=== PATIENT | male | born 1955 | race Caucasian/White ===

== ENCOUNTER 2016-10-28 19:51 | Emergency (ER) | payer BC ==
[~2016-10-28] VITALS: Ht 177.8 cm; Wt 65.7 kg
[~2016-10-28 19:51] MED LIST: IPRA1AER2 INH; SIMV20TA5 PO
[2016-10-28 19:58] VITALS: TEMP 36.9; Ht 177.8 cm; Wt 65.7 kg
[2016-10-28] MEDS ORDERED: VORT1TAB PO (20:19)
[2016-10-28] MEDS ORDERED: CLON0.5T3 PO (20:19)
[2016-10-28] MEDS ORDERED: ATOR10TA88 PO (20:19)
[2016-10-28] MEDS ORDERED: ADVIN50/60 INH (20:19)
[2016-10-28] MEDS ORDERED: SODIUM CHLORIDE 0.9% 500ML 500 ML IV STA ×2 (20:27→21:03)
[2016-10-28] MEDS ORDERED: SODIUM CHLORIDE 0.9% 1000ML 1,000 ML IV STA (20:50)
--- NOTE | 2016-10-28 20:52 | DIAGNOSTIC IMAGING REPORT ---
CHEST ONE VIEW PORTABLE CLINICAL HISTORY: Syncope. COMPARISON STUDY: Chest radiograph June 16, 2010. FINDINGS: There is no pneumothorax or pleural effusion. Bibasilar opacities favor atelectasis. There is no evidence of pulmonary edema. Cardiac size is normal. Mediastinal contours are normal. IMPRESSION: 1. Bibasilar opacities suggestive of atelectasis. 2. No acute cardiopulmonary findings. Electronically signed by: Korey Rush M.D. 10/28/2016 8:51 PM Dictated Date/Time: 10/28/2016 8:48 PM
[2016-10-28 20:55] LABS: BASO % 0.1 %; BASO ABS # 0.01 K/uL (0-0.2); COMPLETE YES; EOS % 2.1 %; HEMATOCRIT 40.7 % (42-52); IG% 0.2 %; LYMPH % 24.7 %; LYMPH ABS # 2.28 K/uL (1.2-3.4); MEAN CELL VOLUME 95.1 fL (80-100); MEAN CORPUSCULAR HEMOGLOBIN 32.5 pg (25-34); MEAN CORPUSCULAR HGB CONC 34.2 g/dl (32-36); MEAN PLATELET VOLUME 9.6 fL (7.4-10.4); MONO % 8.3 %; NEUT % 64.6 %; PLATELET COUNT 178 K/uL (130-400); RED BLOOD COUNT 4.28 M/uL (4.7-6.1); WHITE BLOOD COUNT 9.23 K/uL (4.8-10.8)
[2016-10-28 21:09] LABS: CREATININE 0.93 mg/dl (0.60-1.40); MAGNESIUM 1.9 mg/dl (1.8-2.4); POTASSIUM 3.3 mmol/L (3.5-5.1)
--- NOTE | 2016-10-28 21:18 | EMERGENCY ROOM VISIT NOTE ---
History Report prepared by Chris: Bryant Almazan Under the Supervision of: Dr. Maynor Rodas M.D. First contact with patient: 20:34 Chief Complaint: SYNCOPE (NEAR SYNCOPE) Stated Complaint: SYNCOPE, HYPOTENSIVE Nursing Triage Summary: pt arrived als from home reported approx 1900 syncopel event, pt was standing remembers getting dizzy and then fallen to the ground pt awoke moments later and was diaphoretic pt denies hitting head or body parts "it was a graceful fall" reported pt was making a martini and had about 2 oz of vodka bp 72/40 History of Present Illness The patient is a 61 year old male who presents to the Emergency Room with complaints of a sudden syncopal episode that occurred around 1929. He states that he went to stand up at dinner to get water, but started to experience lightheadedness and dizziness after standing up. His states that she noticed he was swaying and "crumpled" down. She states that he did not hit his head and was unconscious for about 45 seconds. The patient states that he typically drinks around 2-3 water bottles a day but had none today. He admits that he had a third of a martini today and states he feels mildly intoxicated at the moment. The patient states that he had a syncopal episode once over 30 years ago. Per EMS, his blood pressure was [address] to the ED. He admits that his dizziness is resolving with administration of the 1400 ccs of saline prior to my evaluation. He admits to a history of hyperlipidemia, depression, and anxiety. The patient states he saw his urologist last week for a check up and denies any problems. The patient denies any recent illness, UTI, nausea, vomiting, diarrhea, any new exposures, palpitations, shortness of breath , chest pain, cough, fever, shaking, incontinence, biting tongue, heart attack history, and blood thinners. Source of History: patient Onset: 1929 Position: other (global) Timing: other (sudden) Modifying Factors (Relieving): other (fluids) Associated Symptoms: No fevers, No cough, No chest pain, No SOB, No nausea, No vomiting, No diarrhea, No urinary symptoms Review of Systems See HPI for pertinent positives & negatives. A total of 10 systems reviewed and were otherwise negative. Past Medical & Surgical Medical Problems: (1) Anxiety (2) Depression (3) Hyperlipidemia Surgical Problems: (1) H/O hernia repair Family History Patient reports no known family medical history. Social History Smoking Status: Former Smoker Marital Status: Housing Status: lives with significant other Current/Historical Medications Scheduled Atorvastatin (Lipitor), 10 MG PO DAILY Clonazepam (Klonopin), 0.5 MG PO NEEDED Fluticasone Prop/Salmeterol (Advair Diskus 500/50 60 Dose), 1 PUFF INH BID Vortioxetine HBr (Trintellix), 5 MG PO DAILY Scheduled PRN Ipratropium-Albuterol (Combivent Respimat), 1 PUFFS INH BID PRN for Shortness of Breath Allergies Coded Allergies: Cat Dander (Verified Allergy, Unknown, HAYFEVER, 01/14/14) Dog Dander (Verified Allergy, Unknown, HAYFEVER, 01/14/14) Physical Exam Vital Signs Date Time Temp Pulse Resp B/P (MAP) Pulse Ox O2 Delivery O2 Flow Rate FiO2 10/28/16 23:02 81 18 129/70 97 Room Air 10/28/16 20:46 72 20 96/67 95 10/28/16 20:41 76 15 96 10/28/16 20:36 71 19 96 10/28/16 20:31 69 21 90/65 95 10/28/16 20:26 69 20 96 10/28/16 20:21 70 18 96 10/28/16 20:16 71 24 93/66 96 10/28/16 20:11 68 19 97 10/28/16 20:08 99/72 10/28/16 20:06 68 17 10/28/16 20:02 67 10/28/16 19:58 36.9 77 18 92/61 97 Room Air 10/28/16 19:55 92/61 Physical Exam GENERAL: Patient is in no acute distress. HEENT: No acute trauma, normocephalic atraumatic, mucous membranes dry, no nasal congestion, no scleral icterus. NECK: No stridor, no adenopathy, no meningismus, trachea is midline. LUNGS: Crackles at left base, no wheezing, breath sounds are equal. HEART: Without murmurs gallops or rubs, regular rate and rhythm. ABDOMEN: Soft, nontender, bowel sounds positive, no hernias, no peritonitis. EXTREMITIES: No cyanosis or edema, full range of motion of all the joints without pain or difficulty, no signs for acute trauma. NEUROLOGIC: Oriented x 3, no acute motor or sensory deficits, no focal weakness. SKIN: No rash, no jaundice, no diaphoresis. Medical Decision & Procedures ER Provider Diagnostic Interpretation: X-ray results as stated below per interpretation by me and the radiologist: CHEST ONE VIEW PORTABLE CLINICAL HISTORY: Syncope. COMPARISON STUDY: Chest radiograph June 16, 2010. FINDINGS: There is no pneumothorax or pleural effusion. Bibasilar opacities favor atelectasis. There is no evidence of pulmonary edema. Cardiac size is normal. Mediastinal contours are normal. IMPRESSION: 1. Bibasilar opacities suggestive of atelectasis. 2. No acute cardiopulmonary findings. Electronically signed by: Korey Rush M.D. 10/28/2016 8:51 PM Dictated Date/Time: 10/28/2016 8:48 PM Laboratory Results 10/28/16 20:30 Red Blood Count 4.28, Mean Corpuscular Volume 95.1, Mean Corpuscular Hemoglobin 32.5, Mean Corpuscular Hemoglobin Concent 34.2, Mean Platelet Volume 9.6, Neutrophils (%) (Auto) 64.6, Lymphocytes (%) (Auto) 24.7, Monocytes (%) (Auto) 8.3, Eosinophils (%) (Auto) 2.1, Basophils (%) (Auto) 0.1, Neutrophils # (Auto) 5.96, Lymphocytes # (Auto) 2.28, Monocytes # (Auto) 0.77, Eosinophils # (Auto) 0.19, Basophils # (Auto) 0.01 10/28/16 20:30 Test 10/28/16 20:24 10/28/16 20:30 10/28/16 21:15 10/28/16 22:50 Bedside Glucose 88 mg/dl (70-99) White Blood Count 9.23 K/uL (4.8-10.8) Red Blood Count 4.28 M/uL (4.7-6.1) Hemoglobin 13.9 g/dL (14.0-18.0) Hematocrit 40.7 % (42-52) Mean Corpuscular Volume 95.1 fL (80-100) Mean Corpuscular Hemoglobin 32.5 pg (25-34) Mean Corpuscular Hemoglobin Concent 34.2 g/dl (32-36) Platelet Count 178 K/uL (130-400) Mean Platelet Volume 9.6 fL (7.4-10.4) Neutrophils (%) (Auto) 64.6 % Lymphocytes (%) (Auto) 24.7 % Monocytes (%) (Auto) 8.3 % Eosinophils (%) (Auto) 2.1 % Basophils (%) (Auto) 0.1 % Neutrophils # (Auto) 5.96 K/uL (1.4-6.5) Lymphocytes # (Auto) 2.28 K/uL (1.2-3.4) Monocytes # (Auto) 0.77 K/uL (0.11-0.59) Eosinophils # (Auto) 0.19 K/uL (0-0.5) Basophils # (Auto) 0.01 K/uL (0-0.2) RDW Standard Deviation 44.7 fL (36.4-46.3) RDW Coefficient of Variation 12.8 % (11.5-14.5) Immature Granulocyte % (Auto) 0.2 % Immature Granulocyte # (Auto) 0.02 K/uL (0.00-0.02) Anion Gap 8.0 mmol/L (3-11) Est Creatinine Clear Calc Drug Dose 75.6 ml/min Estimated GFR () 100.9 Estimated GFR (Non- 87.1 BUN/Creatinine Ratio 16.0 (10-20) Calcium Level 8.0 mg/dl (8.5-10.1) Magnesium Level 1.9 mg/dl (1.8-2.4) Total Bilirubin 0.4 mg/dl (0.2-1) Aspartate Amino Transf (AST/SGOT) 14 U/L (15-37) Alanine Aminotransferase (ALT/SGPT) 25 U/L (12-78) Alkaline Phosphatase 36 U/L (45-117) Total Creatine Kinase 87 U/L (39-308) Creatine Kinase MB 1.0 ng/ml (0.5-3.6) Creatine Kinase MB Ratio 1.1 (0-3.0) Total Protein 6.2 gm/dl (6.4-8.2) Albumin 3.1 gm/dl (3.4-5.0) Globulin 3.1 gm/dl (2.5-4.0) Albumin/Globulin Ratio 1.0 (0.9-2) Thyroid Stimulating Hormone (TSH) 1.450 uIu/ml (0.300-4.500) Ethyl Alcohol mg/dL < 3.0 mg/dl (0-3) Bedside Troponin I < 0.030 ng/ml (0-0.045) Laboratory results reviewed by me. Medications Administered Medications (Trade) Dose Ordered Sig/Serge Route Start Time Stop Time Status Last Admin Dose Admin Sodium Chloride 500 ml @ 999 mls/hr Q31M STAT IV 10/28/16 20:27 10/28/16 20:57 DC 10/28/16 20:27 999 MLS/HR Sodium Chloride 1,000 ml @ 250 mls/hr Q4H STAT IV 10/28/16 20:50 10/29/16 00:49 10/28/16 20:50 250 MLS/HR Sodium Chloride 500 ml @ 999 mls/hr Q31M STAT IV 10/28/16 21:03 10/28/16 21:33 DC 10/28/16 21:03 999 MLS/HR ECG Indication: syncope Rate (beats per minute): 67 Rhythm: normal sinus Findings: no acute ischemic change, no ectopy ED Course 2026: Sodium Chloride 500 ml @ 999 mls/hr IV 2049: Sodium Chloride 1000 ml @ 250 mls/hr IV. 2055: The patient was evaluated in room B04B. A complete history and physical exam was performed. 2102: Sodium Chloride 500 ml @ 999 mls/hr IV. 2307: Reevaluated the patient. Discussed results and discharge instructions: He verbalized understanding and agreement. The patient is ready for discharge. Medical Decision The patient is a 61 year old male who presents to the ED with complaints of a sudden syncopal episode that occurred around 1930. Differential diagnoses considered include dehydration, alcohol use, electrolyte imbalance, anemia, dysrhythmia, DC, infection. There is no leukocytosis or concerning anemia. No significant electrolyte abnormality, kidney failure or hepatitis. The patient appears to be in a euthyroid state. Chest x-ray shows some basilar atelectasis, no CHF or pneumonia. EKG shows a normal sinus rhythm, no acute ischemia. Cardiac enzyme testing 2 is not consistent with acute cardiac injury. Alcohol level is undetectable. The patient had passed out when standing. He had not had anything to drink really throughout the entire day. It was warm today. His initial blood pressure was low in the 70s. Patient received around 2 L of IV saline, his blood pressure is now around 120 systolic. He is asymptomatic, he feels well. He has been able to drink 3 glasses of water. The patient has been in baseline health, he has had no complaints. He feels he was dehydrated today, I agree. He is doing well at the present and I do think can be discharged home. If his symptoms return, if he has fever or vomiting, if he has pain, he will return. Medication Reconcilliation Current Medication List: was personally reviewed by me Blood Pressure Screening Patient's blood pressure: Elevated blood pressure Blood pressure disposition: Elevated BP felt to be situational Impression Primary Impression: Syncope Additional Impression: Dehydration Scribe Attestation The scribe's documentation has been prepared under my direction and personally reviewed by me in its entirety. I confirm that the note above accurately reflects all work, treatment, procedures, and medical decision making performed by me. Departure Information Dispostion Home / Self-Care Referrals Reinier Flores M.D. (PCP) Forms HOME CARE DOCUMENTATION FORM, IMPORTANT VISIT INFORMATION Patient Instructions My [facility] [employer] Additional Instructions more fluids rest return for return of symptoms return for fever or vomiting lab testing today was all ok ECG today was ok Problem Qualifiers
[2016-10-28 21:20] LABS: CKMB/CK RATIO 1.1 (0-3.0); THYROID STIMULATING HORMONE 1.45 uIu/ml (0.300-4.500)
[2016-10-28 23:02] VITALS: BP 129/70; PULSE 81; O2SAT 97
== END 2016-10-28 23:21 | disposition home or self-care (01) ==
LOC: EDBD 19:51 → C.EDB 19:58
DX: R55 Syncope and collapse (principal); E86.0 Dehydration; R42 Dizziness and giddiness; E78.5 Hyperlipidemia, unspecified; F32.9 Major depressive disorder, single episode, unspecified; F41.9 Anxiety disorder, unspecified; Z79.899 Other long term (current) drug therapy

== ENCOUNTER 2019-05-07 11:03 | Observation (INO) ==
--- NOTE | 2019-04-22 11:22 | PAT Medication Instructions ---
Medication Instructions Date of Service April 22, 2019 Home Medications clonazepam 0.5 mg tablet 0.5 mg PO QPM fluticasone 500 mcg-salmeterol 50 mcg/dose blistr powdr for inhalation 1 puffs INH BID atorvastatin 10 mg tablet 10 mg PO QAM albuterol sulfate 2 puff INHALATION 6XD PRN Take morning of surgery With a small sip of water, OTHERWISE NOTHING TO EAT OR DRINK AFTER MIDNIGHT: fluticasone 500 mcg-salmeterol 50 mcg/dose blistr powdr for inhalation 1 puffs INH BID atorvastatin 10 mg tablet 10 mg PO QAM albuterol sulfate 2 puff INHALATION 6XD PRN (if needed, and bring with you to the hospital) Take evening before surgery clonazepam 0.5 mg tablet 0.5 mg PO QPM fluticasone 500 mcg-salmeterol 50 mcg/dose blistr powdr for inhalation 1 puffs INH BID albuterol sulfate 2 puff INHALATION 6XD PRN (if needed) Other Notes If you have any questions please call us at [phone] or [phone] or [phone] or [phone]
--- NOTE | 2019-04-22 13:38 | Anesthesiology Consultation ---
Date of Service April 22, 2019 Assessment & Plan (1) Encounter for pre-operative examination: Chart Review Chart Review: Pending: Refer to Additional Notes / Consult section (PCP response re: abnormal CXR ) and Patient seen in Pre Admission Testing Pre op CXR showing questionable nodular opacity- note written to PCP inquiring if further work up needed prior to surgery. Will await response. Teaching & Discussion Pre-Anesthesia Teaching/Discussion Notes: Instructed NPO after midnight before surgery,except medications with 15 cc of water. Medication instructions provided according to the PAT guidelines. History Surgery Operation Date: 05/07/19 12:00 Proposed Procedures p Transurethral Resection Bladder Tumor, Mitomycin C, Optical Internal Urethrotomy - Deshawn Cho MD Height/Weight Height: 5 ft 10 in Weight: 64.8 kg Allergies Allergy/AdvReac Type Severity Reaction Status Date / Time No Known Drug Allergies Allergy Verified 04/20/19 15:38 Medications Home Medications Medication Instructions Recorded Confirmed Last Taken clonazepam 0.5 mg tablet 0.5 mg PO QPM 04/08/19 04/20/19 Unknown fluticasone 500 mcg-salmeterol 50 1 puffs INH BID 04/08/19 04/20/19 Unknown mcg/dose blistr powdr for inhalation atorvastatin 10 mg tablet 10 mg PO QAM 04/15/19 04/20/19 Unknown albuterol sulfate 2 puff INHALATION 6XD PRN 04/20/19 04/20/19 Unknown Past Medical History Medical History Anxiety Asthma ALLERGY INDUCED ASTHMA- well controlled with Advair- occ albuterol use Bladder mass Depression Environmental allergies CAT AND DOG DANDER Hyperlipidemia Urethral stricture due to and not concurrent with procedure Exercise / Class Metabolic Activity II 4-5 Yardwork/Stairs/Walk up hill (one flight stairs - no chest pain or SOB; yoga three times weekly ) Past Family History Family History Mother Diabetes Father Heart disease Kidney stones Past Surgical History Surgical History History of colonoscopy History of hernia surgery History of sinus surgery History of surgical removal of ganglion cyst Hx of wisdom tooth extraction Past Anesthesia History No Hx of Anesthesia Complications and No Family Hx of Anesthesia Complications History of PONV No Hx of PONV and No Hx of Motion Sickness Social History Smoking Status: Former smoker (Smoked x 20 years- approx 1/2 pack per day ) Do You Dip or Chew Tobacco: No Smoking End Date: 20 YR AGO Hx Alcohol Use: Yes Alcohol type: beer, wine and hard liquor alcohol intake frequency: 3 or more drinks per day (1 drink per day ) Hx Substance Use: No substance use type: does not use Review of Systems Patient denies chest pain, shortness of breath, dyspnea on exertion, reflux, cough, wheezing, palpitations. No hx of seizures, stroke, AL, apnea/snoring. No hx of blood clots or blood t ransfusions No recent steroid use Physical Exam Vital Signs VITALS BP 144/81 P 83 TEMP 97.5 SP02 95% RESP 20 Constitutional no acute distress ENMT Mouth: no TMJ clicking, no chipped teeth and no loose teeth Thyromental Distance: > or= 3.5 Finger Breadths (4) Mallampati Class: I (smaller airway ) No missing teeth Crowns to molars Neck neck extension not limited Respiratory normal respiratory effort; no respiratory distress Auscultation: lungs clear to auscultation bilaterally and + diminished lung sounds (throughout ); no wheezes Cardiovascular Rate/Rhythm: regular rate and regular rhythm Heart Sounds: no murmur Vessels: no carotid bruit Musculoskeletal Spine: normal cervical ROM and no pain with cervical ROM Neurologic moves all extremities Psychiatric Orientation: alert Testing Laboratory Results 04/22/19 13:56 04/22/19 13:56 Urine Color Yellow 04/22/19 13:56 Urine Appearance Clear (Clear) 04/22/19 13:56 Urine pH 6.0 (4.5-7.5) 04/22/19 13:56 Ur Specific [place] 1.013 (1.000-1.030) 04/22/19 13:56 Urine Protein Trace (Negative) H 04/22/19 13:56 Urine Glucose (UA) Negative (Negative) 04/22/19 13:56 Urine Ketones 1+ (Negative) H 04/22/19 13:56 Urine Nitrite Negative (Negative) 04/22/19 13:56 Ur Leukocyte Esterase 1+ (Negative) H 04/22/19 13:56 Urine WBC (Auto) 10-30 /hpf (0-5) H 04/22/19 13:56 Urine RBC (Auto) 5-10 /hpf (0-4) H 04/22/19 13:56 U Hyaline Cast (Auto) 1-5 /lpf (0-5) 04/22/19 13:56 U Epithel Cells (Auto) 20-30 /lpf (0-5) H 04/22/19 13:56 Urine Bacteria (Auto) Negative (Negative) 04/22/19 13:56 Blood Type A Positive 04/22/19 13:56 Antibody Screen NEGATIVE 04/22/19 13:56 04/22/19 13:56 Urine Culture - Preliminary Urine,Clean Catch No growth - Less than 1,000 colonies/mL, Final report to follow. Electrocardiogram Date: 04/22/19 Findings: + NSR @ [address]. Compared to 10/28/2016- no significant change found Chest X-Ray Date: 04/22/19 Mild blunting of the posterior costophrenic angles may be secondary to trace effusions versus atelectasis. No pneumothorax, overt pulmonary lobar airspace consolidation. 2.4 cm nodular opacity projecting over the lateral right lung base appears to be outside of the lung.
[2019-04-22 14:40] LABS: Basophils # (auto) 0.02 K/uL (0-0.2); Basophils % (auto) 0.2 %; Eosinophils # (auto) 0.07 K/uL (0-0.5); Eosinophils % (auto) 0.7 %; Hematocrit (blood only) 45.4 % (42-52); Hemoglobin 15.6 g/dL (14.0-18.0); Immature Granulocytes # (auto) 0.02 K/uL (0.00-0.02); Immature Granulocytes % (auto) 0.2 %; Lymphocytes # (auto) 2.32 K/uL (1.2-3.4); Lymphocytes % (auto) 23.2 %; Mean Corpuscular Hemoglobin 32.6 pg (25-34); Mean Corpuscular Hgb Conc 34.4 g/dL (32-36); Mean Corpuscular Volume 94.8 fL (80-100); Mean Platelet Volume 9.9 fL (7.4-10.4); Monocytes # (auto) 1.05 K/uL (0.11-0.59); Monocytes % (auto) 10.5 %; Neutrophils % (auto) 65.2 %; Platelet Count 213 K/uL (130-400); RDW Coefficient of Variation 13.3 % (11.5-14.5); RDW Standard Deviation 46.1 fL (36.4-46.3); Red Blood Count 4.79 M/uL (4.7-6.1); White Blood Count 9.98 K/uL (4.8-10.8)
[2019-04-22 14:49] LABS: Calcium 9.1 mg/dl (8.5-10.1); Creatinine Clr Calc Pharmacy 71.1 ml/min; Est GFR (Non-African American) 83.7; Potassium 3.8 mmol/L (3.5-5.1)
--- NOTE | 2019-04-22 14:51 | XRay Report ---
XR chest Pre-admission PA/Lat HISTORY: 63 years-old Male pat preoperative exam. No acute chest complaints COMPARISON: CT abdomen pelvis 04/10/2019, chest radiograph 10/28/2016 TECHNIQUE: PA and lateral views of the chest FINDINGS: Cardiomediastinal and hilar silhouettes are within normal limits. Blunting of the posterior costophre juan angles. No pneumothorax, overt pulmonary lobar airspace consolidation. 2.4 cm nodular opacity pro jecting over the lateral right lung base appears to be outside of the lung. Right-sided cervical rib. Degenerative changes of the shoulders and spine. IMPRESSION: Mild blunting of the posterior costophrenic angles may be secondary to trace effusions ve rsus atelectasis. ACT 112: Negative or not required by law. The above report was generated using voice recognition software. It may contain grammatical, syntax o r spelling errors. Electronically signed by: Tigre Neri M.D. 04/22/2019 2:50 PM
--- NOTE | 2019-04-22 14:57 | Electrocardiogram Report ---
Test Reason : Blood Pressure : / mmHG Vent. Rate : 080 BPM Atrial Rate : 080 BPM P-R Int : 118 ms QRS Dur : 086 ms QT Int : 352 ms P-R-T Axes : 071 087 020 degrees QTc Int : 405 ms Normal sinus rhythm Right atrial enlargement Borderline ECG When compared with ECG of 28-OCT-2016 20:06, No significant change was found Confirmed by Eric Whyte ([id number]) on 04/22/2019 2:57:00 PM Referred By: Deshawn Cho Confirmed By:Eric Whyte
[2019-04-22 15:06] LABS: Appearance Urine Clear (Clear); Bacteria Urine Automated Negative (Negative); Bilirubin Urine Negative (Negative); Blood Urine Trace (Negative); Color Urine Yellow; Epithelial Cell Urine Auto 20-30 /lpf (0-5); Glucose Urine UA Negative (Negative); Ketones Urine 1+ (Negative); Leukocyte Esterase Urine 1+ (Negative); Nitrite Urine Negative (Negative); Protein Urine Trace (Negative); Specific Gravity Urine 1.013 (1.000-1.030); Urobilinogen Urine Negative (Negative)
[~2019-05-07 11:03] MED LIST changes: +CIPROFLOXACIN 400 MG/200 ML BAG IV SCH; -IPRA1AER2 INH; +LR 15ML/HR IV SCH; +OR USE ONLY INSTIL SCH; -SIMV20TA5 PO
--- NOTE | 2019-05-07 12:17 | History & Physical Bridge Note ---
Date of Service May 07, 2019 History & Physical Bridge Note I have examined the patient, reviewed the History & Physical and in the interval since the performance of the History & Physical I have noted the following changes of clinical significance: no changes noted
[2019-05-07] MEDS ORDERED: ePHEDrine sulfate 50 MG/ML AMP IV PRN (12:37)
[2019-05-07] MEDS ORDERED: HYDROmorphone INJ 2 MG/ML SYR/VIAL IV PRN (12:37)
[2019-05-07] MEDS ORDERED: ATROPINE SULFATE 0.1 MG/ML 10ML SYR IV PRN (12:37)
[2019-05-07] MEDS ORDERED: ONDANSETRON INJ 2 MG/ML 2 ML VIAL IV PRN ×2 (12:37→16:43)
[2019-05-07] MEDS ORDERED: fentaNYL citrate 100 MCG/2 ML VIAL ONE ×3 (12:44→14:46)
[2019-05-07] MEDS ORDERED: PROPOFOL IV EMULSION 10 MG/ML 20 ML VIAL IV ONE (12:44)
[2019-05-07] MEDS ORDERED: LIDOCAINE HCL 2% 2 ML VIAL/AMP(20MG/ML) INFIL ONE (12:44)
[2019-05-07] MEDS ORDERED: ONDANSETRON INJ 2 MG/ML 2 ML VIAL ONE ×2 (12:44→17:23)
[2019-05-07] MEDS ORDERED: MIDAZOLAM HCL 1 MG/ML 2ML VIAL ONE (12:44)
[2019-05-07] MEDS ORDERED: DEXAMETHASONE SOD INJ 4 MG/ML VIAL ONE (12:44)
[2019-05-07] MEDS ORDERED: IOTHALAMATE MEGLUMINE II 17.2% 250 ML VIAL ONE (13:56)
[2019-05-07] MEDS ORDERED: BELLADONNA/OPIUM SUPP 60 MG SUPP PR ONE (15:01)
[2019-05-07] MEDS ORDERED: BELLADONNA/OPIUM SUPP 60 MG SUPP PR PRN ×3 (15:01→16:43)
--- NOTE | 2019-05-07 15:20 | Operative Report ---
PG Post Operative Report Pre & Post Diagnosis Operation Date: 05/07/19 12:45 Pre-Op Diagnosis: Bladder Mass, urethral stricture Post-Op Diagnosis: Large right-sided bladder mass (greater than 8 cm in size), sessile base with apparent muscle invasion, urethral stricture. Surgeon: Dr. Deshawn Cho. Anesthesia: General anesthesia with laryngeal mask. Cruller Maker Machine: None. Drains left in place: 6 Samoan multilength stent on the right-hand side, 22 Samoan three-way Morales catheter with 15 cc of sterile water in the balloon to CBI. Specimen sent to pathology: Urine for cytology, right sided bladder/bladder neck tumor, right bladder tumor deep, posterior bladder tumor. Complications: None. Findings: Large, sessile bladder mass on the right-hand side with apparent muscle invasion, satellite lesions in the posterior bladder wall, right ureteral orifice stented due to proximity of tumor and fulguration, good stent position after completion of case. Open urethral stricture after incision. I identified the patient and participated in the time-out.: Yes Procedure Operation Date: 05/07/19 12:45 Actual Procedures p Cystoscopy, Transurethral Resection Bladder Tumor, Large; Right Retrograde Pyelography; Optical Internal Urethrotomy; Right Ureteral Stent Placement(Right) - Deshawn Cho MD Brief history: Patient is a pleasant 63-year-old male previously known to our service for history of an elevated PSA and voiding symptoms, discharged from our practice to reestablish care due to gross hematuria with a positive cytology. CT scan of the abdomen and pelvis was performed office cystoscopy was unsuccessful due to an obstructing urethral stricture disease refractory to dilation. Patient is here today for management of his urethral stricture and apparent bladder mass. Please see H&P for further details. Intravenous ciprofloxacin is provided for antibiotic coverage and SCDs used for DVT prophylaxis. Informed consent reviewed preoperatively today. Procedure: Patient was properly identified and brought into the operative suite after identification of appropriate consent in the chart. General anesthesia with laryngeal mask was initiated and patient was prepped and draped in the standard fashion for this procedure. Full timeout procedure was followed. 22 Samoan rigid cystoscope was passed into the urethra and in the bulbar urethra a circumferential, less than 8 Samoan circumferential stricture was appreciated. Using a half-wilson blade with a urethrotome this was incised at the 12 o'clock position. Stricture was noted to be relatively generous in terms of its length, extending to the prostatic urethra. After this was complete the bladder was accessed and surveyed. This demonstrated a large, sessile bladder mass involving essentially the entirety of the right bladder wall. Posterior satellite papillary lesions were appreciated. Although the lesion was papillary at its periphery the center of the lesion had a hardened, nodular appearance, worrisome for more aggressive disease. Left bladder wall was noted to be uninvolved. Attempts at finding the right ureteral orifice were limited due to persistent bleeding from the mass. Therefore transurethral resection was first undertaken to improve on bleeding. Despite frequent checks for the right ureteral orifice essentially the entire tumor required resection before the ureteral orifice was able to be visualized. Left-sided ureteral orifice was noted to be uninvolved. Over the course of resection it was felt that the detrusor muscle was being entered with the plane of resection extending deeper in the surrounding bladder wall. This was highly suspicious for muscle invasive disease. Tumor was sent in 2 different specimen containers depending on the depth of resection. Bipolar button was used to achieve hemostasis with improved visualization. No lacey bladder perforations were appreciated. After the bladder tumor was resected in its entirety the right-sided ureteral orifice was then able to be identified and noted to be close but clear of the edge of the tumor. However, the surrounding mucosa was felt to be abnormal and fulguration was planned. A multilength stent was therefore placed on the right-hand side with a double coil within the bladder and redundant stent at the level of the right kidney. Bipolar button was then used to fulgurate smaller lesions and abnormal mucosa in the vicinity of the ureteral orifice. Small, satellite posterior bladder lesions were resected in a bipolar loop and sent separately. After this was complete no evidence of any gross tumor persisting was noted. Seen the degree of resection of the placement of right ureteral stent plan for instillation of mitomycin-C was aborted. Bladder was partially distended and resectoscope was removed. 22 Samoan three-way Morales catheter with 15 cc of sterile water in the balloon was placed in the bladder and continuous bladder irrigation was initiated. Seen the size of the tumor and intraoperative oozing from both the urethra and the right bladder wall decision was made to admit the patient for CBI and observation overnight. Belladonna and opium suppository was provided for additional postoperative analgesia. Follow-up CARE: Patient will be admitted to the floor for continuous bladder irrigation. Depending on results we will potentially discharge home tomorrow with Morales catheter in place. Outpatient appointments are in place. Surgeon Deshawn Cho MD Cruller Maker Machine None Estimated Blood Loss 40 Findings Consistent with Post-Op Diagnosis Specimens See above Description of Procedure See above I attest to the content of the Intraoperative Record and any orders documented therein. Any exceptions are noted below.
[2019-05-07] MEDS: fentaNYL citrate 100 MCG/2 ML VIAL IV PRN ×4 (15:38→15:56)
[2019-05-07] MEDS ORDERED: OXYCODONE HCL IR 5 MG TAB (IMMEDIATE RELEASE) PO PRN (16:43)
[2019-05-07] MEDS ORDERED: OXYBUTYNIN CHLORIDE 5 MG TAB PO PRN (16:43)
[2019-05-07] MEDS ORDERED: ALBUTEROL HFA 8 GM INHALER INH PRN (16:43)
[2019-05-07] MEDS ORDERED: MoRPHine SULFATE 2 MG/ML CARP IV PRN (16:43)
[2019-05-07] MEDS ORDERED: ACETAMINOPHEN 1,000 MG/100 ML VIAL IV PRN (16:43)
--- NOTE | 2019-05-07 16:57 | Anesthesiology Progress Note ---
Date of Service May 07, 2019 Anesthesia Post Procedure Vital Signs Vital Signs: Temp Pulse Pulse Resp BP Pulse Ox 05/07/19 16:20 36.8 C 88 16 112/82 96 05/07/19 16:10 36.8 C 86 16 130/85 96 05/07/19 16:00 36.8 C 89 21 131/92 94 05/07/19 15:50 94 H 21 134/92 94 05/07/19 15:40 87 24 134/94 100 05/07/19 15:30 94 H 16 146/96 H 97 05/07/19 15:20 37.2 C 108 H 16 148/104 H 97 05/07/19 11:32 36.6 C 79 18 128/72 96 Pain Intensity Other: Pain Intensity: 1 Penis: Pain Intensity: 4 Transfer of Care Handoff Completed per policy Notes Mental Status: alert / awake / arousable Patient Amnestic to Procedure: Yes Nausea / Vomiting: adequately controlled Pain: adequately controlled Airway Patency, RR, SpO2: stable & adequate BP & HR: stable & adequate Hydration State: stable & adequate Anesthetic Complications: no major complications apparent
--- NOTE | 2019-05-07 17:15 | Progress Note ---
Date of Service May 07, 2019 Subjective Patient seen in PM rounds. Intraop findings reviewed, d/w previously. Sedated, resting in bed, NAD C/o bladder pressure with stevens. S1 S2 Good respiratory excursion. Soft, ND, NT A/P 63 yo male POD#0 s/p large TURBT, R stent. Findings reviewed. CBI OVN. Await pathology. Possible DC home with stevens tomorrow. OOBTC tonight, regular diet. Results & Data ([facility]) Vital Signs (Past 12 Hours) Vital Signs Temp Pulse Pulse Resp BP Pulse Ox 05/07/19 16:20 36.8 C 88 16 112/82 96 05/07/19 16:10 36.8 C 86 16 130/85 96 05/07/19 16:00 36.8 C 89 21 131/92 94 05/07/19 15:50 94 H 21 134/92 94 05/07/19 15:40 87 24 134/94 100 05/07/19 15:30 94 H 16 146/96 H 97 05/07/19 15:20 37.2 C 108 H 16 148/104 H 97 05/07/19 11:32 36.6 C 79 18 128/72 96 PG Care Time/CCT Total # of Minutes Spent Total Time Spent with Patient: Total time spent is greater than 50% in coordination of care (as documented) at patient's floor/unit and/or counseling patient: Coding Level of Care Code None
[2019-05-07] MEDS: HYDROmorphone INJ 1 MG/ML SYRINGE IV PRN ×2 (17:29→23:23)
--- NOTE | 2019-05-07 18:22 | Fluoroscopy Report ---
INTRAOPERATIVE RADIOGRAPH CLINICAL HISTORY: Cystogram with right ureteral stent placement. Fluoroscopy time: 52 seconds. FINDINGS: A single spot fluoroscopic view of the right upper quadrant from a ureteral stent placement procedure is correlated with abdominal CT dated 04/10/2019. The proximal end of a right ureteral sten t projects over the right renal pelvis. No calcifications are suggested along the course of the stent . IMPRESSION: Intraoperative image from a right ureteral stent placement procedure as above. Electronically signed by: Maynor Barbour M.D. 05/07/2019 6:20 PM
[2019-05-07] MEDS: LACTATED RINGER'S 1,000 ML IV SCH ×2 (20:05→20:08)
[2019-05-07] MEDS ORDERED: Nursing to Pharmacy Communication ONE (20:06)
[2019-05-07] MEDS: OXYCODONE HCL IR 5 MG TAB (IMMEDIATE RELEASE) PO PRN (20:09)
[2019-05-07] MEDS: CIPROFLOXACIN 500 MG TAB PO SCH (20:18)
[2019-05-07] MEDS: FAMOTIDINE 10 MG TABLET PO SCH (20:18)
[2019-05-07] MEDS: DOCUSATE SODIUM 100 MG CAP PO SCH (20:19)
[2019-05-07] MEDS ORDERED: clonazePAM 1 MG TAB PO SCH (21:00)
[2019-05-07] MEDS ORDERED: clonazePAM 0.5 MG TAB PO SCH (21:00)
[2019-05-07] MEDS ORDERED: LORazepam 1 MG TAB PO SCH (21:00)
[2019-05-08] MEDS: OXYCODONE HCL IR 5 MG TAB (IMMEDIATE RELEASE) PO PRN ×2 (04:01→09:06)
[2019-05-08] MEDS: LACTATED RINGER'S 1,000 ML IV SCH (05:23)
--- NOTE | 2019-05-08 07:19 | Urology Progress Note ---
Date of Service May 08, 2019 Assessment & Plan (1) Bladder mass: A/P 63 yo male POD#1 s/p TURBT, OIU. Overnight CBI, urine looks good this AM - CBI clamped personally, reviewed with nursing. Ambulation encouraged, will observe urine for hematuria this AM. If urine remains acceptable, DC home with stevens and outpatient TOV this AM. Will need cysto, stent removal at postop visit. Patient vocalizes understanding of the treatment plan. (2) Urethral stricture due to and not concurrent with procedure: Subjective 63 yo male POD#1 s/p TURBT large tumor, R RPG and stent. He notes OOB last night, c/o stevens discomfort. Tolerated regular dinner without issue, no other c/o. Urine pink tinged on slow CBI. Intraop findings reviewed again - await path and PET scan lungs. Review of Systems 2 Constitutional: no fever and no chills Eyes: no diplopia Ear, Nose, Mouth, Throat: no ear trauma Respiratory: no hemoptysis Cardiovascular: no chest pain Gastrointestinal: no nausea and no vomiting Genitourinary: + as per Subjective / HPI Integumentary: no acne and no boil Neurologic: no paralysis Psychiatric: no hopelessness Allergy / Immunological: no tongue swelling Physical Exam Constitutional: well developed and well nourished; no acute distress Eyes: eyes not dysmorphic ENMT: Ears: no external ear abnormality Neck: trachea midline; no anterior neck swelling Respiratory: no respiratory distress and does not use accessory muscles Cardiovascular: Vessels: radial pulses present Gastrointestinal (Abdomen): Inspection/Auscultation: abdomen not distended Percussion/Palpation: abdomen soft; abdomen nontender Musculoskeletal: Head/Neck/Chest: normocephalic and neck supple Skin: normal turgor Neurologic: awake; not obtunded Psychiatric: Orientation: oriented x 3 Lymphatic: no lymphadenopathy Results & Data Vital Signs (Past 12 Hours) Vital Signs Temp Pulse Resp BP Pulse Ox 05/08/19 03:52 36.6 C 72 20 114/72 94 05/07/19 23:27 37.3 C 71 20 125/72 92 PG Care Time/CCT Total # of Minutes Spent Total Time Spent with Patient: Total time spent is greater than 50% in coordination of care (as documented) at patient's floor/unit and/or counseling patient: Coding Level of Care Code 81977 Subseq Hosp Care Lvl 2 Diagnoses Bladder mass N32.89 Urethral stricture due to and not concurrent with procedure
[2019-05-08 07:21] LABS: Basophils # (auto) 0.01 K/uL (0-0.2); Basophils % (auto) 0.1 %; Hematocrit (blood only) 39.8 % (42-52); Hemoglobin 13.4 g/dL (14.0-18.0); Immature Granulocytes # (auto) 0.04 K/uL (0.00-0.02); Immature Granulocytes % (auto) 0.3 %; Lymphocytes # (auto) 1.98 K/uL (1.2-3.4); Lymphocytes % (auto) 12.5 %; Mean Corpuscular Hemoglobin 32.4 pg (25-34); Mean Corpuscular Hgb Conc 33.7 g/dL (32-36); Mean Corpuscular Volume 96.4 fL (80-100); Mean Platelet Volume 9.5 fL (7.4-10.4); Monocytes # (auto) 1.58 K/uL (0.11-0.59); Monocytes % (auto) 9.9 %; Neutrophils # (auto) 12.29 K/uL (1.4-6.5); Neutrophils % (auto) 77.2 %; Platelet Count 189 K/uL (130-400); RDW Coefficient of Variation 13.4 % (11.5-14.5); RDW Standard Deviation 46.8 fL (36.4-46.3); Red Blood Count 4.13 M/uL (4.7-6.1)
[2019-05-08 07:54] LABS: BUN Creatinine Ratio 14.3 (10-20); Calcium 8.3 mg/dl (8.5-10.1); Est GFR (Non-African American) 76.8; Potassium 4.1 mmol/L (3.5-5.1)
--- NOTE | 2019-05-08 07:55 | Anesthesiology Progress Note ---
Date of Service May 08, 2019 Anesthesia Post Procedure Vital Signs Vital Signs: Temp Pulse Pulse Resp BP Pulse Ox 05/08/19 07:37 37 C 74 16 109/67 93 05/08/19 03:52 36.6 C 72 20 114/72 94 05/07/19 23:27 37.3 C 71 20 125/72 92 05/07/19 18:45 63 120/73 93 05/07/19 17:45 36.5 C 63 18 106/70 93 05/07/19 17:15 37.3 C 66 16 101/64 95 05/07/19 16:45 37.3 C 79 16 131/81 95 05/07/19 16:20 36.8 C 88 16 112/82 96 05/07/19 16:10 36.8 C 86 16 130/85 96 05/07/19 16:00 36.8 C 89 21 131/92 94 05/07/19 15:50 94 H 21 134/92 94 05/07/19 15:40 87 24 134/94 100 05/07/19 15:30 94 H 16 146/96 H 97 05/07/19 15:20 37.2 C 108 H 16 148/104 H 97 05/07/19 11:32 36.6 C 79 18 128/72 96 Pain Intensity Other: Pain Intensity: 1 Penis: Pain Intensity: 4 Notes Mental Status: alert / awake / arousable and participated in evaluation Patient Amnestic to Procedure: Yes Nausea / Vomiting: adequately controlled Pain: adequately controlled Airway Patency, RR, SpO2: stable & adequate BP & HR: stable & adequate Hydration State: stable & adequate Anesthetic Complications: no major complications apparent and Pt Satisfied with anesthetic care
[2019-05-08] MEDS ORDERED: FLUTICASONE/VILANTEROL 200/25MCG 14 PUFFS/INHALER INH SCH (09:00)
[2019-05-08] MEDS ORDERED: ATORVASTATIN 10 MG TAB PO SCH (09:00)
[2019-05-08] MEDS: DOCUSATE SODIUM 100 MG CAP PO SCH (09:04)
[2019-05-08] MEDS: CIPROFLOXACIN 500 MG TAB PO SCH (09:05)
[2019-05-08] MEDS: FAMOTIDINE 10 MG TABLET PO SCH (09:05)
--- NOTE | 2019-05-15 14:58 | Discharge Summary ---
Date of Service May 15, 2019 Admission HPI Per Admitting Provider Patient with bladder tumor for TURBT admitted postop for CBI due to tumor volume resected. Admission Exam (Per Admitting) Constitutional well developed and well nourished; no acute distress Eyes eyes not dysmorphic ENMT Ears: no external ear abnormality Neck trachea midline; no anterior neck swelling Respiratory no respiratory distress and does not use accessory muscles Cardiovascular Vessels: radial pulses present Gastrointestinal (Abdomen) Inspection/Auscultation: abdomen not distended Percussion/Palpation: abdomen soft; abdomen nontender Musculoskeletal Head/Neck/Chest: normocephalic and neck supple Skin normal turgor Neurologic awake; not obtunded Psychiatric Orientation: oriented x 3 Lymphatic no lymphadenopathy Discharge Data Procedures Performed Operation Date: 05/07/19 12:45 Actual Procedures p Transurethral Resection Bladder Tumor, Large; (Right) - Deshawn Cho MD s Right Ureteral Stent Placement(Right) - Deshawn Cho MD s Cystoscopy Right Retrograde Pyelography; Optical Internal Urethrotomy;(Right) - Deshawn Cho MD Hospital Course (1) Bladder mass: A/P 63 yo male POD#1 s/p TURBT, OIU. Overnight CBI, urine looks good this AM - CBI clamped personally, reviewed with nursing. Ambulation encouraged, will observe urine for hematuria this AM. If urine remains acceptable, DC home with stevens and outpatient TOV this AM. Will need cysto, stent removal at postop visit. Patient vocalizes understanding of the treatment plan. (2) Urethral stricture due to and not concurrent with procedure: Discharge Instructions See DC instruction list Coding Level of Care Code D/C Day Management <30 mins Diagnoses Bladder mass N32.89 Urethral stricture due to and not concurrent with procedure
== END 2019-05-08 12:45 | disposition home or self-care (01) ==
LOC: 3N 11:03 → ASU 11:03

== ENCOUNTER 2019-05-21 09:27 | Observation (INO) ==
[2019-05-21 10:11] LABS: Platelet Count 261 K/uL (130-400)
[2019-05-21 10:20] LABS: Prothrombin Time 10.7 Seconds (9.0-12.0)
[2019-05-21] MEDS ORDERED: MoRPHine SULFATE 4 MG/ML 1 ML CARP\\VIAL ONE (13:43)
[2019-05-21] MEDS: SODIUM CHLORIDE 0.9% 500 ML IV SCH ×5 (13:50→17:57)
--- NOTE | 2019-05-21 14:15 | CT Scan Report ---
CT guided FNA 1st lesion CLINICAL HISTORY: 63 years-old Male presenting with lt lung mass. TECHNIQUE: Multidetector CT-guided biopsy was performed without the use of intravenous contrast. IV c ontrast: None. CT fluoroscopy was utilized. One or more dose lowering techniques were used consistent with the principles of ALARA (as low as reasonably achievable), including automatic exposure control , mA or kV adjustment to individual patient size, and/or use of iterative reconstruction. COMPARISON: 05/18/2019 and 05/05/2019. CT DOSE (mGy.cm): The estimated cumulative dose is 365.82 mGycm. FINDINGS: [employer] topogram: Unremarkable. The risks, benefits, and alternatives of the procedure were discussed with the patient. Pertinent ris ks discussed with the patient included pneumothorax, bleeding, air embolism and remote risk of among other locations. Written informed consent was obtained. A timeout was performed to confirm chito ent identity. The patient was placed prone on the CT table, and the lungs were scanned for initial localization. Th e superficial margin of the nodule was located 4 cm from the skin surface. The left anterior chest wa ll was prepped and draped in the usual aseptic fashion. 1% lidocaine was administered to the skin and deeper soft tissue. Additionally an anterior approach was chosen, however, this was not successful due to obstruction by the anterior left rib. Therefore, a lateral approach was chosen to access the nodule. Using a 22-gaug e Joanne needle, fine-needle aspiration of the left upper lobe nodule was performed performed under CT fluoroscopy. This does not result in a diagnostic pass. A second pass was then planned. Due to difficulties in positioning and ease of gaining access to the nodule, Dr. Korey Rush was called in to perform a second pass. A postprocedure scan was obtained demonstrating a trace left pneumothorax as well as trace pulmonary hemorrhage. The pathologist present at the time of the procedure cannot confirm an adequate tissue sample. After discussion with the patient, attempted ultrasound assessment of the nodule for possible repeated atte mpt at percutaneous biopsy was sought under the direction of Dr. Rush. IMPRESSION: CT-guided percutaneous fine-needle aspiration of the left upper lobe nodule. ACT 112: Negative or not required by law. Results electronically sent 05/21/2019 2:14 PM to: Heike Rosado MD Electronically signed by: Norman Castillo M.D. 05/21/2019 2:14 PM
[2019-05-21] MEDS ORDERED: MoRPHine SULFATE 2 MG/ML CARP IV STA (14:33)
[2019-05-21] MEDS ORDERED: SODIUM CHLORIDE 0.9% 1000ML 1,000 ML IV SCH (14:35)
[2019-05-21] MEDS ORDERED: MoRPHine SULFATE 2 MG/ML CARP IV PRN (14:35)
--- NOTE | 2019-05-21 14:35 | Procedure Note ---
Procedure Note Date of Service May 21, 2019 Procedure: Pigtail Chest tube insertion Indication: Tension penumothorax Performing Physician: Heike Rosado MD Consent: Emergency verbal consent was obtained from the patient bedside. Under sterile and aseptic measures left 4th intercoastal space was identified and marked. Chlorhexidine was used to clean the area. 1% Lidocaine was given locally. Once the pocket of air was identified in the syringe 14 F pigtail catheter was introduced via Seldinger technique. Chest tube was connected to pneumovac. Air bubbles were appreciated for less than 20 seconds and stoppped. Patient tolerated the procedure well. Complications:None Blood Loss: < [address] chest after the procedure which showed good positioning of Chest tube with reexpansion of lung. Coding CPT Codes Pulmonary/Thoracic - Pulmonary and Thoracic: 03805 Tube thoracostomy ([id number]) [facility] Codes (Charges) Pulmonary/Thoracic Procedure 1: Pulmonary and Thoracic: 05566 Tube thoracostomy
[2019-05-21] MEDS ORDERED: SODIUM CHLORIDE 0.9% 1000ML 1,000 ML IV ONE (14:36)
[2019-05-21] MEDS: HYDROmorphone INJ 0.5 MG/0.5 ML SYR IV PRN ×2 (15:10→19:19)
[2019-05-21] MEDS ORDERED: ACETAMINOPHEN 325 MG TAB PO STA (16:05)
[2019-05-21] MEDS ORDERED: ACETAMINOPHEN 325 MG TAB ONE (16:06)
--- NOTE | 2019-05-21 16:49 | History & Physical Report ---
Date of Service May 21, 2019 Assessment & Plan (1) Pneumothorax: Admit to PCU on telemetry for observation, Vital signs every 4 hours, Monitor electrolytes and replenish as needed, Repeat chest x-ray at 6 PM today. Pain management with hydrocodone as needed, antinausea medication as needed. Consult pulmonary for follow-up of pneumothorax, Check CBC every 6 hours to make sure patient does not develop hemopneumothorax. DVT prophylaxis SCDs and teds Full code Present on Admission?: Yes (2) Hyperlipidemia: Fasting lipid panel pending, continue atorvastatin 10 mg p.o. every morning. Present on Admission?: Yes (3) Depression: Continue clonazepam 0.5 mg p.o. every afternoon. Present on Admission?: Yes (4) Pulmonary nodule: The biopsy and aspiration was done today pending pathology report. Present on Admission?: Yes (5) COPD with emphysema: Continue monitoring, continue levocetirizine 5 mg p.o. daily as needed. Continue tiotropium bromide MCG's mist for inhalation 2 puffs inhalation daily, continue albuterol sulfate 2 puffs every 6 hours as needed. 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 Follow-up with Dr. Deshawn Cho urologist. Present on Admission?: Yes History of Present Illness Chief Complaint: S/p lung biopsy for lung mass and pneumothorax Primary Care Provider: Reinier Flores The patient is a 63 years old male with past medical history of pulmonary nodule, COPD with emphysema, transitional cell carcinoma of the bladder, urethral stricture, depression, hyperlipidemia, anxiety, lung mass who underwent CT-guided percutaneous fine-needle aspiration of the left upper lobe nodule and developed a pneumothorax status post procedure. Patient is direct admit from same day surgery. Medicine was called to admit patient for observation for pneumothorax. Who developed a,placement a left-sided pleural catheter with immediate reexpansion of the lung. Patient reports that 2 weeks ago he had a removal of the bladder mass which was 9 cm in size. This was done by Dr. Deshawn Cho. Patient reports not using oxygen at home but right now he is on 3 L while in PACU. He is oxygenating above 92%. Patient is resting comfortably and he denies fever, chills, chest pain, shortness of breath, abdominal pain, frequency, urgency. Patient reports that hematuria is is resolved after procedure 2 weeks ago. Labs are reviewed: Which shows WBCs of 15.9, hemoglobin 13.4, hematocrit 39.8, platelets 261, PT 10.7, INR 1, APTT 27, sodium 140, potassium 4.1, chloride 107, carbon dioxide 27, anion gap 6, BUN 15, creatinine 1.02, GFR 76.8, BUN 14.3, glucose 91, calcium 8.3. These are labs from May 08, 2019. Today labs are pending: CBC, CMP and urine. The decision was made to admit patient to PCU on telemetry for observation of resolution of the acute pneumothorax. Allergies Allergy/AdvReac Type Severity Reaction Status Date / Time No Known Drug Allergies Allergy Verified 05/19/19 15:31 Home Medications Home Medications Medication Instructions Recorded Confirmed Type clonazepam 0.5 mg tablet 0.5 mg PO QPM 04/08/19 05/21/19 History atorvastatin 10 mg tablet 10 mg PO QAM 04/15/19 05/21/19 History albuterol sulfate 2 puff INHALATION 6XD PRN 04/20/19 05/21/19 History tiotropium bromide 2.5 2 puffs INH DAILY #4 gm 05/14/19 05/19/19 Rx mcg/actuation mist for inhalation levocetirizine [24HR Allergy 5 mg PO DAILY PRN 05/21/19 History Relief] Past Med/Surg History Medical History Anxiety Asthma ALLERGY INDUCED ASTHMA- well controlled with Advair- occ albuterol use Bladder mass Bladder tumor (Acute) Depression Environmental allergies CAT AND DOG DANDER Hyperlipidemia borderline Transitional cell carcinoma of bladder Urethral stricture due to and not concurrent with procedure Surgical History History of colonoscopy History of hernia surgery History of sinus surgery History of surgical removal of ganglion cyst Hx of wisdom tooth extraction Status post surgical removal and fulguration of bladder neoplasm (Acute) Family History Mother Diabetes Father Heart disease Kidney stones Social History Preferred Language: Czech Communication Ability: Effective Television Antenna Installer Required: No Beliefs That Will Affect Care: None marital status: Current Living Situation: Spouse Other Information That Helps Us Care for You: No Feels Safe at Home: Yes Safety Concerns: Feels Safe At This Time Smoking Status: Former smoker Tobacco Type: cigarettes ; Cigarettes Per Day: 10 ; Do You Dip or Chew Tobacco: No ; Smoking End Date: stopped 20 years ago as per pt ; Second Hand Exposure: No ; Tobacco Cessation Education Requested by Patient: No Hx Alcohol Use: Yes Alcohol type: beer, wine and hard liquor Hx Substance Use: No Review of Systems Review of Systems: All systems reviewed & are unremarkable except as noted in HPI & below Physical Exam Constitutional: WD/WN, vitals as above well developed Eyes: PERRL ENMT: external ear and nose normal, oropharynx normal Neck: trachea midline, no thyromegaly Respiratory: + respiratory distress, + labored breathing and + uses accessory muscles Auscultation: + wheezes Cardiovascular: RRR, no murmur, no edema Gastrointestinal (Abdomen): normal bowel sounds, soft, nontender, no hepatosplenomegaly Musculoskeletal: no cyanosis or clubbing, extremities motor strength 5/5 Neurologic: patellar DTR's 2+ bilat, sensation intact Psychiatric: A+Ox3, euthymic affect Lymphatic: no cervical or axillary lymphadenopathy Results & Data Vital Signs (Past 12 Hours) Vital Signs Temp Pulse Resp BP BP Pulse Ox 05/21/19 16:40 37.0 C 66 18 103/60 96 05/21/19 16:00 37.4 C 60 18 110/71 98 05/21/19 15:45 58 L 18 117/67 100 05/21/19 15:20 36.6 C 59 L 19 132/62 99 05/21/19 15:05 36.8 C 63 19 131/72 130/63 99 05/21/19 14:55 55 L 107/68 98 05/21/19 14:20 60 131/80 99 05/21/19 14:05 60 127/74 97 05/21/19 13:46 53 L 95/67 L 98 05/21/19 13:42 50 L 93/54 L 98 05/21/19 10:07 36.4 C L 62 22 147/65 H 99 Code Status & VTE Plan Code Status Full code VTE Prophylaxis Plan VTE Prophylaxis will be ordered: Yes PG Care Time/CCT Total # of Minutes Spent Total Time Spent with Patient: Total time spent is greater than 50% in coordination of care (as documented) at patient's floor/unit and/or counseling patient: Coding Level of Care Code 49810 Initial Inpt Care Lvl 3 Diagnoses Pneumothorax J93.9 Hyperlipidemia E78.5 Depression F32.9 Pulmonary nodule R91.1 COPD with emphysema J43.9 Transitional cell carcinoma of bladder C67.9
[2019-05-21] MEDS ORDERED: MAGNESIUM HYDROXIDE SUSP 30 ML UDC PO PRN (17:26)
[2019-05-21] MEDS ORDERED: POLYETHYLENE (MIRALAX) 17 GM PACK PO PRN (17:26)
[2019-05-21] MEDS ORDERED: ALUMINUM/MAGNESIUM SUSP 30 ML UDC PO PRN (17:26)
[2019-05-21] MEDS ORDERED: ONDANSETRON INJ 2 MG/ML 2 ML VIAL IV PRN (17:26)
[2019-05-21] MEDS ORDERED: ALBUTEROL HFA 8 GM INHALER INH PRN (17:26)
[2019-05-21 17:53] LABS: Basophils # (auto) 0.02 K/uL (0-0.2); Basophils % (auto) 0.1 %; Eosinophils % (auto) 0.7 %; Hematocrit (blood only) 39.2 % (42-52); Hemoglobin 13.2 g/dL (14.0-18.0); Immature Granulocytes # (auto) 0.02 K/uL (0.00-0.02); Immature Granulocytes % (auto) 0.1 %; Lymphocytes # (auto) 1.78 K/uL (1.2-3.4); Mean Corpuscular Hemoglobin 32.4 pg (25-34); Mean Corpuscular Hgb Conc 33.7 g/dL (32-36); Mean Corpuscular Volume 96.1 fL (80-100); Mean Platelet Volume 9.3 fL (7.4-10.4); Monocytes # (auto) 0.98 K/uL (0.11-0.59); Monocytes % (auto) 7.2 %; Neutrophils # (auto) 10.79 K/uL (1.4-6.5); Neutrophils % (auto) 78.9 %; Platelet Count 246 K/uL (130-400); RDW Coefficient of Variation 13.3 % (11.5-14.5); RDW Standard Deviation 46.8 fL (36.4-46.3); Red Blood Count 4.08 M/uL (4.7-6.1); White Blood Count 13.69 K/uL (4.8-10.8)
--- NOTE | 2019-05-21 18:00 | XRay Report ---
XR chest 1V portable HISTORY: Left pneumothorax with left sided chest tube COMPARISON: Chest 04/22/2019. FINDINGS: Left-sided pigtail chest tube seen within the periphery the left lower lung zone. This appe ars in good position. Tiny left apical pneumothorax with a maximal pleural gap of 5 mm. Elevation of the right hemidiaphragm. There is a new hazy airspace opacity within the right lung base. The heart i s normal in size. Hazy appearance is also noted within the left lung base. There is small amount of l eft-sided chest wall subcutaneous emphysema. IMPRESSION: 1. Left-sided chest tube appears in good position. Tiny left apical pneumothorax remains. 2. Bibasilar hazy airspace opacities. This could represent atelectasis or pneumonia. 3. Mild elevation of the right hemidiaphragm is again noted. ACT 112: Negative or not required by law. Results electronically sent 05/21/2019 5:58 PM to: Maynor Roy PA-C Electronically signed by: Chet Lira M.D. 05/21/2019 5:58 PM
[2019-05-21] MEDS: ATORVASTATIN 10 MG TAB PO SCH (18:09)
--- NOTE | 2019-05-21 18:41 | Pulmonary Consultation ---
Date of Consultation May 21, 2019 Assessment & Plan (1) Pneumothorax: Iatrogenic secondary to lung biopsy 14 Lithuanian pigtail catheter placed 05/21/2019 We will keep catheter to suction at negative 20 mmHg If chest x-ray is improved in the morning, placed to waterseal and repeat chest x-ray in 4 hours At this point patient is oxygenating well on room air Pain controlled with Dilaudid 1/2 mg IV every 4 hours Continue to monitor (2) Left upper lobe pulmonary nodule: Percutaneous biopsy with Dr. Rush today Await pathology results Thank you for including us in the care of this patient. We will follow along with you. Please refer to Dr. Rosado's addendum for further recommendations. Supervising Physician Co-Signing Physician Notes Patient seen and discussed with Maynor Roy, Patient came for Pulmonary maria eugenia biopsy leading to iatrogenic tension pneumothorax. Emergency pig tail catheter was placed in the CT chest itself after getting verbal consent. Patient will be admitted for management of chest tube. History of Present Illness Attending Physician: Karen Spring MD History of Present Illness Attending: Dr. Rosado Is a 63-year-old male that was referred to [facility] for CT-guided percutaneous biopsy of a left upper lobe nodule. During the procedure the patient developed shortness of breath and pain and was found to have a tension pneumothorax on the left. The pulmonary team was called ur gently to the CT scanning area where we placed a 14 Lithuanian pigtail catheter. Catheter was placed to waterseal in a Adeola Pleur-evac. CT imaging showed significant reduction in the pneumothorax immediately following placement of the chest tube. Biopsy was successfully completed by Dr. Rush and patient was admitted for observation overnight due to the placement of the chest tube. Patient had considerable pain during the procedure and was given a total of 4 mg of IV morphine sulfate. He was then given a half a milligram of IV Dilaudid for persistent pain in the recovery area. Repeat chest x-ray shows significant improvement of the pneumothorax with a tiny left-sided apical area of 5.1 mm. Patient has a history of COPD with emphysema, transitional cell carcinoma of the bladder, urethral stricture, history of hematuria, hyperlipidemia, anxiety. The patient is a former smoker and states that he quit smoking 20 years ago. Smoking history includes a 20-year history with approximate 1/2 pack/day for [id number] history. Patient also drinks 3 or more drinks per day of beer or wine and hard liquor. Allergies Allergy/AdvReac Type Severity Reaction Status Date / Time No Known Drug Allergies Allergy Verified 05/19/19 15:31 Home Medications Home Medications Medication Instructions Recorded Confirmed Type clonazepam 0.5 mg tablet 0.5 mg PO QPM 04/08/19 05/21/19 History atorvastatin 10 mg tablet 10 mg PO QAM 04/15/19 05/21/19 History albuterol sulfate 2 puff INHALATION 6XD PRN 04/20/19 05/21/19 History tiotropium bromide 2.5 2 puffs INH DAILY #4 gm 05/14/19 05/19/19 Rx mcg/actuation mist for inhalation levocetirizine [24HR Allergy 5 mg PO DAILY PRN 05/21/19 History Relief] Patient History Medical History Anxiety Asthma ALLERGY INDUCED ASTHMA- well controlled with Advair- occ albuterol use Bladder mass Bladder tumor (Acute) Depression Environmental allergies CAT [employer]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 Hyperlipidemia borderline Transitional cell carcinoma of bladder Urethral stricture due to and not concurrent with procedure Surgical History History of colonoscopy History of hernia surgery History of sinus surgery History of surgical removal of ganglion cyst Hx of wisdom tooth extraction Status post surgical removal and fulguration of bladder neoplasm (Acute) Family History Mother Diabetes Father Heart disease Kidney stones Social History Preferred Language: Spanish Communication Ability: Effective Extension Service Supervisor Required: No Beliefs That Will Affect Care: None marital status: Current Living Situation: Family Feels Safe at Home: Yes Smoking Status: Former smoker Tobacco Type: cigarettes ; Cigarettes Per Day: 10 ; Second Hand Exposure: No ; Hx Alcohol Use: Yes Alcohol type: beer, wine and hard liquor Hx Substance Use: No Review of Systems Review of Systems: All systems reviewed & are unremarkable except as noted in HPI & below Physical Exam Physical Exam: GENERAL : No acute distress EYES: No icterus, gaze conjugate NOSE: No evidence of epistaxis MOUTH: No lesions or candidiasis NECK: Supple. LUNGS: Decreased breath sounds on the left side. No rales or rhonchi. No bronchospasm. HEART: Regular, rate controlled ABDOMEN: Soft, NT, ND, BS Present EXTREMITIES: No LE edema, pedal pulses intact NEURO: A&OX3 Results & Data ([facility]) Vital Signs (Past 12 Hours) Vital Signs Temp Pulse Resp BP BP Pulse Ox 05/21/19 17:30 36.6 C 644 H 20 115/57 L 3 L 05/21/19 16:40 37.0 C 66 18 103/60 96 05/21/19 16:00 37.4 C 60 18 110/71 98 05/21/19 15:45 58 L 18 117/67 100 05/21/19 15:20 36.6 C 59 L 19 132/62 99 05/21/19 15:05 36.8 C 63 19 131/72 130/63 99 05/21/19 14:55 55 L 107/68 98 05/21/19 14:20 60 131/80 99 05/21/19 14:05 60 127/74 97 05/21/19 13:46 53 L 95/67 L 98 05/21/19 13:42 50 L 93/54 L 98 05/21/19 10:07 36.4 C L 62 22 147/65 H 99 Laboratory Results 05/21/19 17:46 INR 1.0 (0.9-1.1) 05/21/19 10:02 Diagnostic Findings XR chest 1V portable HISTORY: Left pneumothorax with left sided chest tube COMPARISON: Chest 04/22/2019. FINDINGS: Left-sided pigtail chest tube seen within the periphery the left lower lung zone. This appears in good position. Tiny left apical pneumothorax with a maximal pleural gap of 5 mm. Elevation of the right hemidiaphragm. There is a new hazy airspace opacity within the right lung base. The heart is normal in size. Hazy appearance is also noted within the left lung base. There is small amount of left-sided chest wall subcutaneous emphysema. IMPRESSION: 1. Left-sided chest tube appears in good position. Tiny left apical pneumothorax remains. 2. Bibasilar hazy airspace opacities. This could represent atelectasis or pneumonia. 3. Mild elevation of the right hemidiaphragm is again noted. ACT 112: Negative or not required by law. Results electronically sent 05/21/2019 5:58 PM to: Maynor Roy PA-C Electronically signed by: Chet Lira M.D. 05/21/2019 5:58 PM PG Care Time/CCT Total # of Minutes Spent Total Time Spent with Patient: Total time spent is greater than 50% in coordina tion of care (as documented) at patient's floor/unit and/or counseling patient: 50 minutes including multiple visits to the patient and exclusive of any procedure time. Please refer to Dr. Rosado's procedure note. Coding Level of Care Code 04706 Inpt Consult Level 5 Diagnoses Pneumothorax J93.9 Left upper lobe pulmonary nodule R91.1
[2019-05-21] MEDS: ACETAMINOPHEN 325 MG TAB PO PRN (20:28)
[2019-05-21] MEDS ORDERED: clonazePAM 0.5 MG TAB PO SCH (21:00)
[2019-05-21 23:01] LABS: Basophils # (auto) 0.02 K/uL (0-0.2); Basophils % (auto) 0.2 %; Eosinophils # (auto) 0.22 K/uL (0-0.5); Hematocrit (blood only) 37.9 % (42-52); Immature Granulocytes # (auto) 0.03 K/uL (0.00-0.02); Immature Granulocytes % (auto) 0.3 %; Lymphocytes # (auto) 2.32 K/uL (1.2-3.4); Lymphocytes % (auto) 21.4 %; Mean Corpuscular Hemoglobin 33.2 pg (25-34); Mean Corpuscular Hgb Conc 34.3 g/dL (32-36); Mean Corpuscular Volume 96.9 fL (80-100); Monocytes # (auto) 1.04 K/uL (0.11-0.59); Monocytes % (auto) 9.6 %; Neutrophils # (auto) 7.19 K/uL (1.4-6.5); Neutrophils % (auto) 66.5 %; Platelet Count 255 K/uL (130-400); RDW Coefficient of Variation 13.5 % (11.5-14.5); RDW Standard Deviation 47.9 fL (36.4-46.3); Red Blood Count 3.91 M/uL (4.7-6.1); White Blood Count 10.82 K/uL (4.8-10.8)
[2019-05-22] MEDS: ACETAMINOPHEN 325 MG TAB PO PRN ×3 (03:01→12:01)
[2019-05-22 06:06] LABS: Basophils # (auto) 0.02 K/uL (0-0.2); Basophils % (auto) 0.2 %; Eosinophils # (auto) 0.31 K/uL (0-0.5); Eosinophils % (auto) 3.2 %; Hematocrit (blood only) 38.8 % (42-52); Hemoglobin 12.8 g/dL (14.0-18.0); Immature Granulocytes # (auto) 0.02 K/uL (0.00-0.02); Immature Granulocytes % (auto) 0.2 %; Lymphocytes # (auto) 2.24 K/uL (1.2-3.4); Lymphocytes % (auto) 23.1 %; Mean Corpuscular Hemoglobin 32.1 pg (25-34); Mean Corpuscular Volume 97.2 fL (80-100); Mean Platelet Volume 9.6 fL (7.4-10.4); Monocytes # (auto) 0.98 K/uL (0.11-0.59); Monocytes % (auto) 10.1 %; Neutrophils # (auto) 6.13 K/uL (1.4-6.5); Neutrophils % (auto) 63.2 %; Platelet Count 258 K/uL (130-400); RDW Coefficient of Variation 13.4 % (11.5-14.5); RDW Standard Deviation 47.4 fL (36.4-46.3); Red Blood Count 3.99 M/uL (4.7-6.1)
[2019-05-22 06:40] LABS: Albumin Level 2.8 gm/dl (3.4-5.0); BUN Creatinine Ratio 17.1 (10-20); Calcium 8.5 mg/dl (8.5-10.1); Creatinine Clr Calc Pharmacy 76.1 ml/min; Est GFR (Non-African American) 91.4; Potassium 3.8 mmol/L (3.5-5.1)
[2019-05-22 06:43] LABS: Albumin Globulin Ratio 0.9 (0.9-2); Bilirubin,Total 0.5 mg/dl (0.2-1); Total Protein 5.8 gm/dl (6.4-8.2)
[2019-05-22] MEDS: SODIUM CHLORIDE 0.9% 500 ML IV SCH (07:10)
--- NOTE | 2019-05-22 07:39 | XRay Report ---
XR chest 1V portable HISTORY: Follow-up pneumothorax. COMPARISON: Chest 05/21/2019. FINDINGS: Left-sided chest tube remains unchanged in position. No definite pneumothorax. Mild elevati on of the right hemidiaphragm, unchanged. The heart is normal in size. No evidence for pulmonary fernando a. Bibasilar densities persist. IMPRESSION: 1. No definite pneumothorax. The left-sided chest tube is unchanged in position. 2. Bibasilar linear densities persist. This may represent atelectasis or pneumonia. ACT 112: Negative or not required by law. Results electronically sent 05/22/2019 7:38 AM to: Heike Rosado MD Electronically signed by: Chet Lira M.D. 05/22/2019 7:38 AM
[2019-05-22 07:47] LABS: Estimated Average Glucose 120 mg/dl; Hemoglobin A1C 5.8 % (4.5-5.6)
[2019-05-22] MEDS: ATORVASTATIN 10 MG TAB PO SCH (08:04)
--- NOTE | 2019-05-22 08:34 | Hospitalist Progress Note ---
Date of Service May 22, 2019 Assessment & Plan (1) Pneumothorax: Iatrogenic secondary to lung biopsy 14 Albanian pigtail catheter placed 05/21/2019 Chest x-ray this morning with no pneumothorax No air leak appreciated Chest tube clamped and suction discontinued Repeat chest x-ray at 11 AM If no pneumothorax, discharge home (2) Left upper lobe pulmonary nodule: Percutaneous biopsy with Dr. Rush 05/21/2019 Await pathology results (3) COPD with emphysema: Patient quit smoking several years ago Continue outpatient meds on discharge Oxygenating well on room air No adventitious breath sounds (4) Transitional cell carcinoma of bladder: Follows with Dr. Deshawn Cho Continue outpatient management (5) Depression: With associated anxiety Continue clonazepam Is not on an SSRI at home Admission and Anticipated Discharge Date Admission Date: May 21, 2019 Anticipated date of discharge: 05/22/19 Subjective Attending: Dr. Gus Cho This is a 63-year-old male that presented yesterday for outpatient percutaneous CT-guided biopsy of a left upper lobe pulmonary nodule. During the procedure he had tension pneumothorax. A 14 Albanian pigtail catheter was placed and connected to a Adeola Pleur-evac at -20 mmHg. Patient has been on suction all night. This morning on examination the patient has no further pain requiring narcotics. He did have some Tylenol this morning and pain is relatively controlled. The patient has no apparent air leak. Chest tube has been clamped. Patient denies any fever or chills overnight. He did not sleep well. He has some irritation at the insertion site of the chest tube. He has no significant cough. No production of sputum. He has no hemoptysis. He has no other acute issues. Review of Systems Review of Systems: All systems reviewed & are unremarkable except as noted in HPI & below Physical Exam Physical Exam: GENERAL : No acute distress. Pleasant EYES: No icterus, gaze conjugate. Pupils equal round and reactive to light NOSE: No evidence of epistaxis MOUTH: No lesions or candidiasis. Mucosa moist NECK: Supple LUNGS: Lung sounds in all lung zones. No adventitious breath sounds. CHEST: A left-sided chest tube is in place and secure at the fourth intercostal rib. The dressing is dry and intact. HEART: Regular, rate controlled ABDOMEN: Soft, NT, ND, BS Present EXTREMITIES: No LE edema, pedal pulses intact NEURO: A&OX3 Results & Data ([facility]) Vital Signs (Past 12 Hours) Vital Signs Temp Pulse Resp BP Pulse Ox 05/22/19 07:26 36.7 C 67 21 124/61 95 05/22/19 04:21 37.3 C 69 19 127/63 94 05/21/19 23:44 37.0 C 65 22 108/65 92 Laboratory Results 05/22/19 05:36 05/22/19 05:36 Diagnostic Findings XR chest 1V portable 05/22/2019 HISTORY: Follow-up pneumothorax. COMPARISON: Chest 05/21/2019. FINDINGS: Left-sided chest tube remains unchanged in position. No definite pneumothorax. Mild elevation of the right hemidiaphragm, unchanged. The heart is normal in size. No evidence for pulmonary edema. Bibasilar densities persist. IMPRESSION: 1. No definite pneumothorax. The left-sided chest tube is unchanged in position. 2. Bibasilar linear densities persist. This may represent atelectasis or pneumo nahun. ACT 112: Negative or not required by law. Results electronically sent 05/22/2019 7:38 AM to: Heike Rosado MD Electronically signed by: Chet Lira M.D. 05/22/2019 7:38 AM PG Care Time/CCT Total # of Minutes Spent Total Time Spent with Patient: Total time spent is greater than 50% in coordination of care (as documented) at patient's floor/unit and/or counseling patient:15 minutes exclusive of any other documentation or procedures. Coding Level of Care Code 76704 Subseq Hosp Care Lvl 3 Diagnoses Pneumothorax J93.9 Left upper lobe pulmonary nodule R91.1 COPD with emphysema J43.9 Transitional cell carcinoma of bladder C67.9 Depression F32.9 Comment Please refer to patient's discharge summary today as well.
[2019-05-22 11:26] LABS: Basophils # (auto) 0.02 K/uL (0-0.2); Basophils % (auto) 0.2 %; Eosinophils # (auto) 0.15 K/uL (0-0.5); Eosinophils % (auto) 1.7 %; Hematocrit (blood only) 40.3 % (42-52); Hemoglobin 13.5 g/dL (14.0-18.0); Immature Granulocytes # (auto) 0.01 K/uL (0.00-0.02); Immature Granulocytes % (auto) 0.1 %; Lymphocytes # (auto) 1.96 K/uL (1.2-3.4); Lymphocytes % (auto) 21.8 %; Mean Corpuscular Hemoglobin 32.5 pg (25-34); Mean Corpuscular Hgb Conc 33.5 g/dL (32-36); Mean Corpuscular Volume 97.1 fL (80-100); Mean Platelet Volume 9.2 fL (7.4-10.4); Monocytes # (auto) 0.89 K/uL (0.11-0.59); Monocytes % (auto) 9.9 %; Neutrophils # (auto) 5.96 K/uL (1.4-6.5); Neutrophils % (auto) 66.3 %; Platelet Count 272 K/uL (130-400); RDW Coefficient of Variation 13.4 % (11.5-14.5); RDW Standard Deviation 47.7 fL (36.4-46.3); Red Blood Count 4.15 M/uL (4.7-6.1); White Blood Count 8.99 K/uL (4.8-10.8)
--- NOTE | 2019-05-22 12:16 | XRay Report ---
XR chest 1V portable CLINICAL HISTORY: Left Pneumothorax COMPARISON STUDY: Chest radiograph May 22, 2019. FINDINGS: Left pleural pigtail catheter is noted. There is no pneumothorax. Gas within left chest wal l is again noted. The recently biopsied nodule within the left midlung is noted. Mild bibasilar opaci ties favor atelectasis. Cardiac size is normal. There is no evidence for pulmonary edema. IMPRESSION: Left pleural pigtail catheter in place. No pneumothorax. ACT 112: Negative or not required by law. Results electronically sent 05/22/2019 12:15 PM to: Maynor Roy PA-C Electronically signed by: Korey Rush M.D. 05/22/2019 12:15 PM
--- NOTE | 2019-05-22 12:57 | Procedure Note ---
Procedure Note Date of Service May 22, 2019 Note Procedure date: 05/22/2019 Procedure time: 12:30 PM Procedure name: Removal of left-sided pigtail chest tube catheter Narrative: Is a 63-year-old male that presented for left-sided percutaneous pulmonary nodule biopsy yesterday. The patient developed a pneumothorax on the left with tension. A 14 Swazi pigtail catheter was placed emergently. The patient had repeat chest x-ray last evening which showed improvement to the pneumothorax. Repeat chest x-ray this morning showed no pneumothorax. Chest tube was clamped. After 4 hours, repeat chest x-ray was completed and showed no evidence of pneumothorax. Chest tube was unclamped and it is noted that there was no air leak. Dressing was removed from around the chest tube. The skater chest tube retention string was cut per documentation liaison's instructions. The chest tube was easily removed under positive pressure. A dressing was secured over the chest tube site with Tegaderm with no evidence of leak. Patient was instructed to leave the dressing in place for 48 to 72 hours. He was also instructed to keep the area dry for the next 24 hours. He was also given instructions to go to the emergency room with significant shortness of breath, increased pain, or drainage onto the chest tube dressing. The patient tolerated the procedure well There was no blood loss Coding CPT Codes Pulmonary/Thoracic - Pulmonary and Thoracic: 95821 Remove lung catheter ([id number]) [facility] [place] Codes (Charges) Pulmonary/Thoracic Procedure 1: Pulmonary and Thoracic: 65166 Remove lung catheter
--- NOTE | 2019-05-22 13:04 | Discharge Summary ---
Date of Service May 22, 2019 Admission HPI Per Admitting Provider The patient is a 63 years old male with past medical history of pulmonary nodule, COPD with emphysema, transitional cell carcinoma of the bladder, urethral stricture, depression, hyperlipidemia, anxiety, lung mass who underwent CT-guided percutaneous fine-needle aspiration of the left upper lobe nodule and developed a pneumothorax status post procedure. Patient is direct admit from same day surgery. Medicine was called to admit patient for observation for pneumothorax. Who developed a,placement a left-sided pleural catheter with immediate reexpansion of the lung. Patient reports that 2 weeks ago he had a removal of the bladder mass which was 9 cm in size. This was done by Dr. Deshawn Cho. Patient reports not using oxygen at home but right now he is on 3 L while in PACU. He is oxygenating above 92%. Patient is resting comfortably and he denies fever, chills, chest pain, shortness of breath, abdominal pain, frequency, urgency. Patient reports that hematuria is is resolved after procedure 2 weeks ago. Labs are reviewed: Which shows WBCs of 15.9, hemoglobin 13.4, hematocrit 39.8, platelets 261, PT 10.7, INR 1, APTT 27, sodium 140, potassium 4.1, chloride 107, carbon dioxide 27, anion gap 6, BUN 15, creatinine 1.02, GFR 76.8, BUN 14.3, glucose 91, calcium 8.3. These are labs from May 08, 2019. Today labs are pending: CBC, CMP and urine. The decision was made to admit patient to PCU on telemetry for observation of resolution of the acute pneumothorax. Admission Exam Per Admitting Provider Constitutional: WD/WN, vitals as above well developed Eyes: PERRL ENMT: external ear and nose normal, oropharynx normal Neck: trachea midline, no thyromegaly Respiratory: + respiratory distress, + labored breathing and + uses accessory muscles Auscultation: + wheezes Cardiovascular: RRR, no murmur, no edema Gastrointestinal (Abdomen): normal bowel sounds, soft, nontender, no hepatosplenomegaly Musculoskeletal: no cyanosis or clubbing, extremities motor strength 5/5 Neurologic: patellar DTR's 2+ bilat, sensation intact Psychiatric: A+Ox3, euthymic affect Lymphatic: no cervical or axillary lymphadenopathy Principal Diagnosis Left tension pneumothorax Discharge Exam Physical Exam: GENERAL : No acute distress. Pleasant EYES: No icterus, gaze conjugate. Pupils equal round and reactive to light NOSE: No evidence of epistaxis MOUTH: No lesions or candidiasis. Mucosa moist NECK: Supple LUNGS: Lung sounds in all lung zones. No adventitious breath sounds. CHEST: A left-sided chest tube is in place and secure at the fourth intercostal rib. The dressing is dry and intact. HEART: Regular, rate controlled ABDOMEN: Soft, NT, ND, BS Present EXTREMITIES: No LE edema, pedal pulses intact NEURO: A&OX3 Discharge Data Allergies Allergy/AdvReac Type Severity Reaction Status Date / Time No Known Drug Allergies Allergy Verified 05/19/19 15:31 Consultations 05/21/19 14:48 Consult Hospitalist Routine 05/21/19 17:26 Consult Pulmonology Routine Procedures Performed Operation Date: 05/21/19 10:[address] Scan Lung Biopsy - Heike Rosado MD Placement of left-sided pigtail catheter with locking mechanism by Dr. Rosado 05/21/2019 Removal of pigtail catheter by Maynor Roy PA-C 05/22/2019 Ordered Studies 05/21/19 CT limited or localized study Routine 05/21/19 10:25 CT guided FNA 1st lesion Routine 05/22/2019: Chest x-ray to evaluate pneumothorax Hospital Course (1) Pneumothorax: Iatrogenic secondary to lung biopsy 14 Ukrainian pigtail catheter placed 05/21/2019 Chest x-ray this morning with no pneumothorax No air leak appreciated Chest tube clamped and suction discontinued Repeat chest x-ray at 11 AM with no evidence of pneumothorax Patient discharged home for self-care (2) Left upper lobe pulmonary nodule: Percutaneous biopsy with Dr. Rush 05/21/2019 Await pathology results (3) COPD with emphysema: Patient quit smoking several years ago Continue outpatient meds on discharge Oxygenating well on room air No adventitious breath sounds (4) Transitional cell carcinoma of bladder: Follows with Dr. Deshawn Cho Continue outpatient management (5) Depression: With associated anxiety Continue clonazepam Is not on an SSRI at home Total Time Total Time Spent Total Time Spent (In Minutes): 35 minutes Total Time Includes: Examination of the Patient, Discharge Planning, Medication Reconciliation, Communication With Other Providers and Other (Removal of chest tube at bedside) Discharge Plan Discharge Items Patient Disposition: Home - Self-Care Reason For Visit: PNEUMOTHORAX Discharge Diagnosis: Left-sided tension pneumothorax Condition on Discharge: Good Activity: Resume your previous activity Activity Comment: As tolerated Lifting: Gradually increase as tolerated Bathing: Keep incision dry Bathing Comment: No shower or bath for 24 hours. May shower tomorrow after lunch. No hot tub, swimming pool, submersion for at least 1 week. Sexual Activity: When tolerated Exercise/Sports: Gradually increase as tolerated Exercise Comment: No swimming, hot tub, bath for 7 days Driving/Machine Use: Resume 1 day after discharge Weightbearing: Full weightbearing Non-emergency contact: Primary Care Provider Call non-emergency contact if: you have any medication questions, your pain is worsening, your temperature is above 101 and your wound has increased drainage Follow-up/Referrals: Reinier Flores [Primary Care Provider] - 05/28/19 10:50 am (IF YOU CAN NOT MAKE THIS APT, PLEASE CALL THE OFFICE AND RESCHEDULE) Diet: Heart Healthy Diet Comment: Resume heart healthy diet as tolerated Addtl Attending Provider Instructions: No shower for 24 hours May remove dressing after 48 to 72 hours Report to the emergency room immediately with shortness of breath or severe chest pain Pending Studies at Discharge: No Stand-Alone Forms: My [employer], Smoking Cessation Medications and DC Order Prescriptions: Continued clonazepam [Klonopin] 0.5 mg tablet 0.5 mg PO QPM RF: 0 atorvastatin [Lipitor] 10 mg tablet 10 mg PO QAM RF: 0 Spiriva Respimat 2.5 mcg/actuation mist 2 puffs INH DAILY Qty: 4 RF: 2 albuterol sulfate 90 mcg/actuation Hfa Aerosol Inhaler 2 puff INHALATION 6XD PRN (Reason: ALLERGIES INDUCED ASTHMA) RF: 0 levocetirizine [24HR Allergy Relief] 5 mg tablet 5 mg PO DAILY PRN (Reason: allergy symptoms) RF: 0 Discharge Orders: Discharge Order (Routine); Ordered 05/22/19 Ordered By: Maynor Hernandez/Other Patient Handouts: Pneumothorax Admission Data Admit Date/Time: 05/21/19 16:42 Attending Provider: Gus Cho Admit Provider: Karen Spring Primary Care Provider: Reinier Flores Other Providers: Heike Rosado ; Gus Cho ; Karen Spring Other Interventions: Discharge Summary Assessment (RN) Last Done: 05/22/19 12:55 DC Date/Time DO NOT enter until pt leaves facility: 05/22/19 13:26 Supervising Physician Co-Signing Physician Notes I supervised Maynor Roy PA-C on this patient's care. I examined the patient today independently of him. I discussed the plan of care with him with the plan being as written in his note except for any following changes/exceptions: None. Feeling better after chest tube. Anxious to go home. Repeat CXR without residual pneumothorax after clamping for ~3 hours. Will follow up biopsy results with his urologist. Coding Level of Care Code D/C Day Management >30 mins Diagnoses Pneumothorax J93.9 Left upper lobe pulmonary nodule R91.1 COPD with emphysema J43.9 Transitional cell carcinoma of bladder C67.9 Depression F32.9 Time Spent (min) 45
== END 2019-05-22 13:26 | disposition home or self-care (01) ==
LOC: 2E 09:27 → ASU 09:27 → SUATTDRO 16:42

== ENCOUNTER 2019-11-19 10:23 | Inpatient (IN) ==
[2019-11-19] MEDS ORDERED: ONDANSETRON INJ 2 MG/ML 2 ML VIAL IV STA (10:56)
[2019-11-19] MEDS ORDERED: SODIUM CHLORIDE 0.9% 1000ML 1,000 ML IV SCH (11:00)
--- NOTE | 2019-11-19 11:01 | Emergency Department Note ---
ED Visit Note I assisted Dr. Ladd in the care of this patient. Please see attending attestation for additional information. Caden Rubio DO Resident, Family & Community Medicine, [facility] . Resident Activity Tracking Resident Involvement: Resident Care Provided Care Provided: Adult ED
[2019-11-19] MEDS ORDERED: HYDROmorphone INJ 0.5 MG/0.5 ML SYR IV STA (11:22)
[2019-11-19 11:33] LABS: iSTAT Creatinine 1.1 mg/dl (0.6-1.3); iSTAT Hemoglobin 13.6 g/dl (14.0-18.0); iSTAT Ionized Calcium 1.15 mmol/l (1.12-1.32); iSTAT Potassium 4.1 mmol/L (3.3-5.0)
[2019-11-19] MEDS ORDERED: SODIUM CHLORIDE 0.9% 1000ML 500 ML IV ONE (11:38)
[2019-11-19 11:47] LABS: Albumin Level 2.4 gm/dl (3.4-5.0); BUN Creatinine Ratio 19.4 (10-20); Calcium 8.6 mg/dl (8.5-10.1); Creatinine Clr Calc Pharmacy 59.9 ml/min; Est GFR (African American) 76.4; Est GFR (Non-African American) 65.9; Potassium 4.1 mmol/L (3.5-5.1)
[2019-11-19 11:49] LABS: Albumin Globulin Ratio 0.7 (0.9-2); Bilirubin,Total 3.6 mg/dl (0.2-1); Globulin 3.4 gm/dl (2.5-4.0); Total Protein 5.8 gm/dl (6.4-8.2)
[2019-11-19 11:54] LABS: Hematocrit (blood only) 40.2 % (42-52); Hemoglobin 13.2 g/dL (14.0-18.0); Mean Corpuscular Hemoglobin 31.5 pg (25-34); Mean Corpuscular Hgb Conc 32.8 g/dL (32-36); Mean Corpuscular Volume 95.9 fL (80-100); Mean Platelet Volume 12.1 fL (7.4-10.4); Platelet Count 126 K/uL (130-400); RDW Standard Deviation 59.3 fL (36.4-46.3); Red Blood Count 4.19 M/uL (4.7-6.1); White Blood Count 8.94 K/uL (4.8-10.8)
[2019-11-19 11:55] LABS: Basophils # (auto) 0.02 K/uL (0-0.2); Basophils % (auto) 0.2 %; Echinocytes 2+; Eosinophils # (auto) 0.12 K/uL (0-0.5); Eosinophils % (auto) 1.3 %; Immature Granulocytes # (auto) 0.01 K/uL (0.00-0.02); Immature Granulocytes % (auto) 0.1 %; Lymphocytes # (auto) 1.09 K/uL (1.2-3.4); Lymphocytes % (auto) 12.2 %; Monocytes # (auto) 1.37 K/uL (0.11-0.59); Monocytes % (auto) 15.3 %; Neutrophils # (auto) 6.33 K/uL (1.4-6.5); Neutrophils % (auto) 70.9 %; Platelet Estimate Decreased (Normal)
[2019-11-19 12:00] LABS: Appearance Urine Cloudy (Clear); Bacteria Urine Automated 1+ (Negative); Blood Urine 3+ (Negative); Color Urine Dark Yellow; Glucose Urine UA Negative (Negative); Ketones Urine Negative (Negative); Leukocyte Esterase Urine 3+ (Negative); Nitrite Urine Positive (Negative); Specific Gravity Urine 1.013 (1.000-1.030); Urobilinogen Urine Negative (Negative); WBC Urine Automated >30 /hpf (0-5)
[2019-11-19 12:12] LABS: Bilirubin Urine 1+ (Negative); Protein Urine 2+ (Negative)
[2019-11-19 12:14] LABS: Ictotest Urine Positive (Negative); Sulfosalicylic Acid Urine Positive (Negative)
[2019-11-19 12:26] LABS: RBC Urine Automated >30 /hpf (0-4)
[2019-11-19 12:30] LABS: Appearance Urine Clear (Clear); Bacteria Urine Automated 1+ (Negative); Blood Urine 3+ (Negative); Color Urine Dark Yellow; Epithelial Cell Urine Auto 0-5 /lpf (0-5); Glucose Urine UA Negative (Negative); Ketones Urine Negative (Negative); Leukocyte Esterase Urine 3+ (Negative); Nitrite Urine Negative (Negative); Protein Urine 2+ (Negative); Specific Gravity Urine 1.017 (1.000-1.030); Urobilinogen Urine Negative (Negative); WBC Urine Automated >30 /hpf (0-5); pH Urine 6.5 (4.5-7.5)
[2019-11-19 12:31] LABS: Bilirubin Urine 1+ (Negative)
[2019-11-19 12:32] LABS: Ictotest Urine Positive (Negative)
[2019-11-19] MEDS ORDERED: IOVERSOL 100ml IV ONE (12:53)
[2019-11-19] MEDS ORDERED: PIPERACILL/TAZOBAC CONSULT ACTIVE PRN ×2 (12:56→17:14)
[2019-11-19] MEDS ORDERED: PIPERACILLIN/TAZOBACTAM 4.5 GM/120 ML BAG IV ONE (12:56)
--- NOTE | 2019-11-19 13:33 | CT Scan Report ---
CT abd pelvis IV con only CLINICAL HISTORY: abd pain/distention METASTATIC DISEASE COMPARISON STUDY: 10/28/2019 TECHNIQUE: The patient was scanned in a dynamic helical fashion during intravenous administration of 93 cc of Optiray 320 A dose lowering technique was utilized adhering to the principles of ALARA. CT DOSE: 315.34 mGy.cm FINDINGS: Lower chest: There is enlarging 25 mm right lower lobe pulmonary mass. There is a 20 mm pleural-based right lower lobe mass which is also enlarged. There are adjacent right lower lobe airspace opacities . There are dependent right lower lobe atelectatic changes. Liver: Multiple hepatic hypodensities remain similar. The appearance favors cysts. The liver somewhat nodular configuration raises the possibility of underlying cirrhosis Gallbladder: Gallbladder is mildly distended. No calculi are visualized. Spleen: Normal in size and attenuation. Pancreas: Unremarkable. Adrenal glands: Unremarkable. Kidneys: There is been interval insertion of bilateral nephrostomy tubes with resolution of previousl y identified bilateral hydronephrosis. There is an upper pole right renal cyst. Bowel: There are minimally dilated proximal jejunal loops. This could represent ileus or early/partia l small bowel obstruction. Clinical and imaging follow-up is recommended. There is borderline colonic wall thickening which may be secondary to underlying hepatocellular disease. Peritoneum: There is increasing low volume ascites. There is no free intraperitoneal air. Vasculature: The abdominal aorta is normal in course and caliber. Adenopathy: Mesenteric lymph nodes are the upper limits of normal in size. Pelvic viscera: Postsurgical changes involve the bladder. There is pronounced bladder wall thickening . There is infiltration of the perivesical fat. The findings are consistent with the patient's known bladder cancer with probable extension into the perivesical soft tissues. Skeletal structures: No destructive osseous lesions are seen. IMPRESSION: 1. Enlarging right lower lobe pulmonary nodules, consistent with progressive metastatic disease 2. Cirrhotic morphology of the liver with increasing low volume ascites 3. Interval placement of bilateral nephrostomy catheters with resolution of previously identified hyd ronephrosis 4. Persistent asymmetric bladder wall thickening with infiltration of the perivesical fat, consistent with the patient's known bladder carcinoma 5. Mild dilatation of proximal jejunal loops. The appearance is nonspecific and could be secondary to a focal ileus, or early/partial small bowel obstruction. ACT 112: Negative or not required by law. Electronically signed by: German Anderson M.D. 11/19/2019 1:31 PM
--- NOTE | 2019-11-19 15:24 | History & Physical Report ---
Date of Service November 19, 2019 Assessment & Plan (1) Ileus: -Admit to [facility] [place] -Possible that this is due to TCC bladder, metastasis, gallbladder distension, recent nephrostomy tube placement and scar tissue forming adhesions, or liver involvement. -Consult GI, Dr. Dacosta - check MRCP for gallbladder distention -Consult general surgery, Dr. Lebron -CT abdomen pelvis reviewed, shows mildly distended gallbladder, no calculi, bowel with minimally dilated proximal jejunal loops representing ileus or early/partial small bowel obstruction. Borderline colonic wall thickening, bilateral nephrostomy catheters with resolution of previously identified hydronephrosis, persistent asymmetric bladder wall thickening with infiltration of the perivesicular fat -Abdominal pain improved currently, was initially rated 10/10, + distention, + pain with palpation and guarding - afebrile, no wbc -Keep n.p.o., ok with sips and chips -Continue IV Zosyn, first dose administered in the ER -LR 125 mL/hr (2) Transitional cell carcinoma of bladder: -[place], [place] [facility] will consult our oncologist here as he is scheduled for Keytruda at [facility] within next week or so. -Started Keytruda, given initial dose during hospital stay at [facility] between 10/28 to 11/02 when bilateral nephrostomy tubes were placed -CT abdomen showing resolvent of hydronephrosis which had previously been present -Sites surrounding nephrostomy tubes appear well-healed, no surrounding erythema, no purulent drainage/bloody drainage from tubes -consult urology, Dr. Bueno (3) Liver metastases: -Noted cirrhotic morphology with increasing low volume ascites on CT (4) Elevated LFTs: -Elevation of LFTs likely secondary to malignancy, trend with a.m. labs -Tbili=3.6 (5) Left upper lobe pulmonary nodule: -Patient with multiple pulmonary nodules, left upper lobe, right lower lobe consistent with progressive metastatic disease -Currently on room air, no increased O2 requirements on admission (6) COPD with emphysema: -Continue home inhalers, albuterol, Spiriva (7) Hyperlipidemia: -History of such, not on statin therapy (8) Depression: (9) Anxiety: -May continue clonazepam 0.5 mg QPM (10) DVT prophylaxis: - teds, scds CODE: Full Dispo: From home, likely to remain in the hospital x 1-2 days History of Present Illness Primary Care Provider: Dlzachdarren Flores This is a 64 yo M with PMHx of metastatic bladder cancer originally diagnosed in March 2019, metastases involves numerous pulmonary nodules and liver started on Keytruda during his most recent admission at [facility], COPD with emphysema, asthma, HLD, anxiety, depression who presents with increased abdominal pain. His is present with him at bedside. He was recently admitted at [facility] from 10/28 to 11/02 where he had bilateral nephrostomy tube placed on 10/28 and has follow up with [facility] [place]rology in December. Both sides are draining well, the left side has a slight pink tinge to the urine draining out of it since placement. He had visiting nurses coming to the home twice a week, is primarily changing dressings around the site at this point in time. He denies any purulent material draining or blood draining from the tubes or around the insertion site. During that admission he was started on Keytruda, per orders of Dr. Mihai Boucher with oncology. He plans to follow with oncology here at [facility] for further doses of Keytruda, next infusion scheduled in ~1.5 weeks. Patient reports that his abdominal pain has worsened over the last few days, poor appetite, gas pains, distention, nausea but no vomiting, and slightly constipated with small bowel movement occurring this morning. When he presented to the ER his pain was rated 10/10, improved now after getting IV pain medications. He took 3 Dulcolax tablets last evening because he felt abdominal discomfort. He denies any fevers, chills or sweats. He reports he has not had any significant weight loss recently, weighs approximately 147 pounds, with normal weight of 155. He has had a poor appetite over the last few days as well. Currently his mouth is very dry and requesting something to eat or drink. CT of the abdomen/pelvis was found to have a ileus versus partial SBO. The patient has been started on IV Zosyn. GI consulted for mildly distended gallbladder and ileus versus partial SBO, where MRCP was recommended. LFTs are elevated on admission, total bili is = 3.6. Patient is afebrile without leukocytosis. Allergies Allergy/AdvReac Type Severity Reaction Status Date / Time cat dander Allergy Mild watery eyes Unverified 11/19/19 11:07 No Known Drug Allergies Allergy Verified 11/19/19 11:07 Home Medications Home Medications Medication Instructions Recorded Confirmed Type clonazepam 0.5 mg tablet 0.5 mg PO QPM 04/08/19 11/19/19 History albuterol sulfate 2 puff INHALATION 6XD PRN 04/20/19 11/19/19 History levocetirizine [24HR Allergy 5 mg PO DAILY PRN 05/21/19 11/19/19 History Relief] tiotropium bromide 2.5 2 puffs INH BID #4 gm 08/27/19 11/19/19 Rx mcg/actuation mist for inhalation oxycodone-acetaminophen 5 mg-325 1 tab PO Q8H PRN #15 tab 11/18/19 11/19/19 Rx mg tablet calcium carbonate [Calcium 600] 600 mg PO QAM 11/19/19 11/19/19 History ibuprofen 400 mg PO Q6H PRN 11/19/19 11/19/19 History metoprolol tartrate 50 mg PO BID 11/19/19 11/19/19 History Past Med/Surg History Medical History Anxiety Asthma ALLERGY INDUCED ASTHMA COPD with emphysema Recently started on Spiriva by pulm Depression Environmental allergies CAT AND DOG DANDER Hyperlipidemia borderline Left upper lobe pulmonary nodule Had recent biopsy that showed metastatic disease from bladder cancer. Transitional cell carcinoma of bladder Urethral stricture Surgical History History of colonoscopy History of hernia surgery History of sinus surgery History of surgical removal of ganglion cyst Hx of wisdom tooth extraction Port-A-Cath in place (06/08/19) Insertion of Mediport Internal Jugular Left with Fluoroscopy Dr. Escobar 06-08-19 Status post surgical removal and fulguration of bladder neoplasm 05/07/2019 [facility], urethrotomy, rt ureter stent placement Family History Mother Diabetes Father Heart disease Kidney stones Other No family history of adverse response to anesthesia Social History Smoking Status: Former smoker Cigarettes Per Day: 10; Smoking End Date: 1999; Second Hand Exposure: No; Do You Dip or Chew Tobacco: No; Tobacco Cessation Education Requested by Patient: No Hx Alcohol Use: Yes Alcohol type: beer, wine and hard liquor Hx Substance Use: No Preferred Language: Czech Communication Ability: Effective Nurse Practitioner Physicians Assistant Required: No Beliefs That Will Affect Care: None marital status: Current Living Situation: Spouse current occupational status: employed 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 Other Information That Helps Us Care for You: No Feels Safe at Home: Yes Safety Concerns: Feels Safe At This Time Review of Systems Review of Systems: Constitutional: No fever, sweats or chills Eyes: No diplopia, no worsening or blurred vision, requires glasses for reading ENT: normal hearing, no trouble swallowing, + mouth extremely dry Respiratory: No cough, sputum, dyspnea at rest or on exertion Cardiovascular: No chest pain, tightness or palpitations Abdomen: + As per HPI : Nephrostomy tubes bilaterally, draining well, left side draining pink-tinged urine, no purulent material, no blood Musculoskeletal: No joint pain, calf pain, swelling Neurologic: No weakness, numbness/tingling, or balance problems Psychiatric: No anxiety or depression Skin: No rash or itch Physical Exam Physical Exam: General: awake, alert, no apparent distress Head: Normocephalic, atraumatic ENT: PERRL, EOMI, no pharyngeal exudate, mucous membranes dry Chest: Clear to auscultation, on room air, no adventitious breath sounds Cardiac: Regular rate and rhythm, no murmur, no JVD, normal peripheral pulses, good capillary refill Abdominal: Hypoactive bowel sounds, soft, mildly distended, + tympanic to percussion, tender to palpation in RUQ, RLQ, mid abdominal, + guarding Extremities: Normal inspection, no peripheral edema or erythema, calfs nontender to palpation Psych: Normal mood and affect Neuro: AAO x 3, strength intact bilaterally and rated 5/5, no motor deficits, speech is clear, no peripheral sensory deficits Results & Data Results & Data ([facility]) Vital Signs (Past 12 Hours) Vital Signs Temp Pulse Pulse Resp BP BP Pulse Ox 11/19/19 14:00 82 18 95 11/19/19 12:24 83 18 105/79 95 11/19/19 10:56 95 11/19/19 10:29 36.9 C 84 20 116/[address] abd pelvis IV con only CLINICAL HISTORY: abd pain/distention METASTATIC DISEASE COMPARISON STUDY: 10/28/2019 TECHNIQUE: The patient was scanned in a dynamic helical fashion during intrav enous administration of 93 cc of Optiray 320 A dose lowering technique was utilized adhering to the principles of ALARA. CT DOSE: 315.34 mGy.cm FINDINGS: Lower chest: There is enlarging 25 mm right lower lobe pulmonary mass. There is a 20 mm pleural-based right lower lobe mass which is also enlarged. There are adjacent right lower lobe airspace opacities. There are dependent right lower lobe atelectatic changes. Liver: Multiple hepatic hypodensities remain similar. The appearance favors cysts. The liver somewhat nodular configuration raises the possibility of underlying cirrhosis Gallbladder: Gallbladder is mildly distended. No calculi are visualized. Spleen: Normal in size and attenuation. Pancreas: Unremarkable. Adrenal glands: Unremarkable. Kidneys: There is been interval insertion of bilateral nephrostomy tubes with resolution of previously identified bilateral hydronephrosis. There is an upper pole right renal cyst. Bowel: There are minimally dilated proximal jejunal loops. This could represent ileus or early/partial small bowel obstruction. Clinical and imaging follow-up is recommended. There is borderline colonic wall thickening which may be secondary to underlying hepatocellular disease. Peritoneum: There is increasing low volume ascites. There is no free intraperitoneal air. Vasculature: The abdominal aorta is normal in course and caliber. Adenopathy: Mesenteric lymph nodes are the upper limits of normal in size. Pelvic viscera: Postsurgical changes involve the bladder. There is pronounced bladder wall thickening. There is infiltration of the perivesical fat. The findings are consistent with the patient's known bladder cancer with probable extension into the perivesical soft tissues. Skeletal structures: No destructive osseous lesions are seen. IMPRESSION: 1. Enlarging right lower lobe pulmonary nodules, consistent with progressive metastatic disease 2. Cirrhotic morphology of the liver with increasing low volume ascites 3. Interval placement of bilateral nephrostomy catheters with resolution of previously identified hydronephrosis 4. Persistent asymmetric bladder wall thickening with infiltration of the perivesical fat, consistent with the patient's known bladder carcinoma 5. Mild dilatation of proximal jejunal loops. The appearance is nonspecific and could be secondary to a focal ileus, or early/partial small bowel obstruction. Code Status & VTE Plan Code Status Full code-discussed with the patient and his at bedside Supervising Physician Co-Signing Physician Notes I personally saw and examined the patient. I verified all apple points and agree with RIAZ Sandoval with the following exceptions and/or additions: 64-year-old male with metastatic transitional cell carcinoma and recent bilateral nephrostomy placement secondary to upper tract obstruction presents to the ER with worsening appetite, gas pains, distention, nausea, abdominal pain. No vomiting. He is continuing to pass gas throughout the day. Concern on CT for ileus versus partial SBO. Concern for cholecystitis given mildly distended gallbladder on CT. Gastroenterology were contacted by ER and recommended MRCP. Zosyn was started in the ER however blood cultures were not taken prior to this. O/E HS1+2, no murmurs, Chest CTAB, abdominal exam concerning for rebound tenderness with mainly lower abdominal. A/P Abdominal pain - ileus versus spontaneous bacterial peritonitis. Less likely cholecystitis/cholangitis despite elevated LFTs his pain is less consistent with this. Pending MRCP to assess for obstruction. He was started on Zosyn in the ER. Agree with GI and surgery consult as above. Ileus versus partial bowel obstruction - continues to pass gas, NPO. Consult surgery. Spontaneous bacterial peritonitis - no WBC or fever. Already started on Zosyn in ER will continue this. Blood cultures x2. Ultrasound paracentesis planned for a.m. Albumin IV 1.5 g/kg Elevated LFTs - acute elevation, MRCP to assess for obstruction. Cirrhotic appearing liver with low volume ascites - this appears significantly progressed since his CT on October 27. ?Hepatotoxicity of Keytruda - consult oncology. Elevated INR and PTT -suspect secondary to liver pathology as above, however will give 5 mg IV vitamin K to rule out vitamin K deficiency as potential cause and repeat with a.m. labs PG Care Time/CCT Total # of Minutes Spent Total Time Spent with Patient: Total time spent is greater than 50% in coordination of care (as documented) at patient's floor/unit and/or counseling patient: Coding Level of Care Code 57896 Initial Inpt Care Lvl 3 Diagnoses Ileus K56.7 Transitional cell carcinoma of bladder C67.9 Liver metastases C78.7 Elevated LFTs R79.89 Left upper lobe pulmonary nodule R91.1 COPD with emphysema J43.9 Hyperlipidemia E78.5 Depression F32.9 Anxiety F41.9 DVT prophylaxis Z29.9
[2019-11-19 15:27] LABS: INR 1.3 (0.9-1.1); Partial Thromboplastin Ratio 1.6; Partial Thromboplastin Time 43.6 Seconds (21.0-31.0); Prothrombin Time 13.5 Seconds (9.0-12.0)
--- NOTE | 2019-11-19 17:10 | Emergency Department Note ---
History of Present Illness General Chief complaint: Abdominal Pain Stated complaint: EXTREME ABDOMINAL PAIN Time Seen by Provider: 11/19/19 11:01 History of Present Illness Provider complaint: Abdominal distention, pain Maximum Pain Intensity: 2 This patient is a 64-year-old male who presents to the emergency department with complaints of abdominal distention and pain. He states he is nauseated. Patient has a history of metastatic bladder cancer in 2 weeks ago was transferred to [facility] for nephrostomy tubes due to acute renal failure from obstructive change. Patient states he has had increased nausea and distention over the last 24 hours or so. He has had no vomiting, blood in his stool. His nephrostomy tubes have been draining. He denies any cough, chest pain or shortness of breath. He has had 2 doses of Keytruda. Home Medications Home Medications Medication Instructions Recorded Confirmed Type clonazepam 0.5 mg tablet 0.5 mg PO QPM 04/08/19 11/19/19 History albuterol sulfate 2 puff INHALATION 6XD PRN 04/20/19 11/19/19 History levocetirizine [24HR Allergy 5 mg PO DAILY PRN 05/21/19 11/19/19 History Relief] tiotropium bromide 2.5 2 puffs INH BID #4 gm 08/27/19 11/19/19 Rx mcg/actuation mist for inhalation oxycodone-acetaminophen 5 mg-325 1 tab PO Q8H PRN #15 tab 11/18/19 11/19/19 Rx mg tablet calcium carbonate [Calcium 600] 600 mg PO QAM 11/19/19 11/19/19 History ibuprofen 400 mg PO Q6H PRN 11/19/19 11/19/19 History metoprolol tartrate 50 mg PO BID 11/19/19 11/19/19 History Allergies Allergy/AdvReac Type Severity Reaction Status Date / Time cat dander Allergy Mild watery eyes Unverified 11/19/19 11:07 No Known Drug Allergies Allergy Verified 11/19/19 11:07 Past Med/Surg History Medical History Anxiety Asthma ALLERGY INDUCED ASTHMA COPD with emphysema Recently started on Spiriva by pulm Depression Environmental allergies CAT AND DOG DANDER Hyperlipidemia borderline Left upper lobe pulmonary nodule Had recent biopsy that showed metastatic disease from bladder cancer. Transitional cell carcinoma of bladder Urethral stricture Surgical History History of colonoscopy History of hernia surgery History of sinus surgery History of surgical removal of ganglion cyst Hx of wisdom tooth extraction Port-A-Cath in place (06/08/19) Insertion of Mediport Internal Jugular Left with Fluoroscopy Dr. Escobar 06-08-19 Status post surgical removal and fulguration of bladder neoplasm 05/07/2019 [facility], urethrotomy, rt ureter stent placement Family History Mother Diabetes Father Heart disease Kidney stones Other No family history of adverse response to anesthesia Social History Smoking Status: Former smoker Cigarettes Per Day: 10; Smoking End Date: 1999; Second Hand Exposure: No; Do You Dip or Chew Tobacco: No; Tobacco Cessation Education Requested by Patient: No Hx Alcohol Use: Yes Alcohol type: beer, wine and hard liquor Hx Substance Use: No Preferred Language: Bulgarian Communication Ability: Effective Medical Laboratory Manager Required: No Beliefs That Will Affect Care: None marital status: Current Living Situation: Spouse current occupational status: employed 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 and A total of 10 systems reviewed and were otherwise negative Physical Exam Vital Signs Vital Signs - 24 hr 11/19/19 16:21 11/19/19 16:32 Pulse Rate [Apical] 88 Respiratory Rate 20 Respiratory Effort / Characteristics Non-Labored Respiratory Depth Normal Blood Pressure [Left Radial Artery] 104/62 Blood Pressure Mean [Left Radial Artery] 76 Blood Pressure Position [Left Radial Artery] Sitting Pulse Oximetry 95 Oxygen Delivery Method Room Air Room Air Vital signs reviewed. General: Chronically ill appearing 64-year-old male, in no significant distress. Frail-appearing HEENT: No scleral icterus, PERRLA, neck supple. Atraumatic. Cardiovascular: Regular rate and rhythm, no extra sounds. Pulmonary: Clear to auscultation bilaterally, normal work of breathing. Abdomen: Soft, thin, positive tympany, distended, positive bowel sounds. Musculoskeletal: Bilateral nephrostomy tubes at the CVAs bilaterally. Neurologic: Awake, alert and oriented x3. Skin: Warm, dry, no rash Course Administered Medications Calcium Carbonate (Calcium Carbonate 1250mg Tab) 1,250 mg PO QAM [facility]; Protocol Stop: 12/20/19 08:59 Last Admin: 11/20/19 09:14 Dose: 1,250 mg Documented by: [id number] Clonazepam (Clonazepam 0.5 Mg Tab) 0.5 mg PO QPM RAJAN Stop: 12/19/19 20:59 Last Admin: 11/20/19 00:47 Dose: 0.5 mg Documented by: [id number] Admin: 11/19/19 22:28 Dose: Not Given Documented by: [id number] Heparin Sodium (Porcine) (Heparin 100 Unit/Ml 5ml Flush) 5 ml FLUSH PRN PRN PRN Reason: Flush Stop: 12/19/19 22:50 Last Admin: 11/20/19 00:32 Dose: 5 ml Documented by: [id number] Admin: 11/20/19 00:18 Dose: 5 ml Documented by: [id number] Hydromorphone HCl (Hydromorphone Inj 0.5 Mg/0.5 Ml Syr) 0.5 mg IV Q3H PRN PRN Reason: Pain Stop: 12/03/19 17:13 Last Admin: 11/20/19 07:51 Dose: 0.5 mg Documented by: [id number] Admin: 11/19/19 22:48 Dose: 0.5 mg Documented by: [id number] Piperacillin Sod/Tazobactam (Sod 3.375 gm/ Dextrose) 115 mls @ 28.75 mls/hr IV Q8H [facility]; Protocol Stop: 11/29/19 17:59 Last Admin: 11/20/19 10:56 Dose: 28.8 mls/hr Documented by: [id number] Infusion: 11/20/19 05:50 Dose: 0 mls/hr Documented by: [id number] Admin: 11/20/19 01:38 Dose: 28.8 mls/hr Documented by: [id number] Infusion: 11/20/19 00:17 Dose: 0 mls/hr Documented by: [id number] Admin: 11/19/19 19:27 Dose: 28.8 mls/hr Documented by: [id number] Metoprolol Tartrate (Metoprolol Tartrate 50 Mg Tab) 50 mg PO BID RAJAN Stop: 12/19/19 20:59 Last Admin: 11/20/19 09:13 Dose: 50 mg Documented by: [id number] Admin: 11/19/19 22:28 Dose: Not Given Documented by: [id number] Simethicone (Simethicone 80 Mg Chew) 80 mg PO Q6H PRN PRN Reason: Gas or Constipation Stop: 12/20/19 08:26 Last Admin: 11/20/19 09:17 Dose: 80 mg Documented by: [id number] Umeclidinium Jolon (Umeclidinium Jolon 62.5mcg/Blister 7 Puffs/Inhaler) 1 puffs INH DAILY RAJAN; Protocol Stop: 12/20/19 08:59 Last Admin: 11/20/19 09:27 Dose: 1 puffs Documented by: [id number] Discontinued Medications Hydromorphone HCl (Hydromorphone Inj 0.5 Mg/0.5 Ml Syr) 0.5 mg IV NOW STA Stop: 11/19/19 11:23 Last Admin: 11/19/19 11:29 Dose: 0.5 mg Documented by: [id number] Hydromorphone HCl (Hydromorphone Inj 0.5 Mg/0.5 Ml Syr) Confirm Administered Dose 0.5 mg .ROUTE .STK-MED ONE Stop: 11/19/19 17:33 Last Admin: 11/19/19 17:33 Dose: 0.5 mg Documented by: [id number] Hydromorphone HCl (Hydromorphone Inj 0.5 Mg/0.5 Ml Syr) 0.5 mg IV NOW STA Stop: 11/20/19 09:16 Last Admin: 11/20/19 09:26 Dose: 0.5 mg Documented by: [id number] Sodium Chloride (Nss 1000ml) 1,000 mls @ 80 mls/hr IV .[id number] RAJAN Stop: 12/19/19 10:59 Last Infusion: 11/19/19 17:16 Dose: 0 mls/hr Documented by: [id number] Admin: 11/19/19 11:24 Dose: 80 mls/hr Documented by: [id number] Sodium Chloride (Nss 1000ml) 500 mls @ 999 mls/hr IV .Q31M ONE Stop: 11/19/19 12:08 Last Infusion: 11/19/19 12:17 Dose: 0 mls/hr Documented by: [id number] Admin: 11/19/19 11:46 Dose: 999 mls/hr Documented by: [id number] Piperacillin Sod/Tazobactam Sod (Zosyn) 4.5 gm in 120 mls @ 240 mls/hr IV NOW ONE Stop: 11/19/19 13:25 Last Infusion: 11/19/19 14:06 Dose: 0 mls/hr Documented by: [id number] Admin: 11/19/19 13:19 Dose: 240 mls/hr Documented by: [id number] Lactated Ringer's (Lr) 1,000 mls @ 125 mls/hr IV .Q8H RAJAN Stop: 11/20/19 17:13 Last Infusion: 11/19/19 20:26 Dose: 0 mls/hr Documented by: [id number] Admin: 11/19/19 17:33 Dose: 125 mls/hr Documented by: [id number] Lactated Ringer's (Lr) 1,000 mls @ 80 mls/hr IV .[id number] RAJAN Stop: 12/19/19 23:44 Last Admin: 11/20/19 00:05 Dose: Not Given Documented by: [id number] Albumin Human (Albumin 25%) 50 mls @ 50 mls/hr IV Q1H RAJAN Stop: 11/19/19 08:29 Last Admin: 11/20/19 01:38 Dose: Not Given Documented by: [id number] Admin: 11/20/19 01:38 Dose: Not Given Documented by: [id number] Admin: 11/20/19 01:37 Dose: Not Given Documented by: [id number] Admin: 11/20/19 01:37 Dose: Not Given Documented by: [id number] Admin: 11/20/19 01:37 Dose: Not Given Documented by: [id number] Admin: 11/20/19 01:37 Dose: Not Given Documented by: [id number] Admin: 11/20/19 01:37 Dose: Not Given Documented by: [id number] Admin: 11/20/19 01:37 Dose: Not Given Documented by: [id number] Phytonadione 5 mg/ Sodium (Chloride) 50.5 mls @ 101 mls/hr IV ONE ONE; Protocol Stop: 11/20/19 01:14 Last Infusion: 11/20/19 01:38 Dose: 0 mls/hr Documented by: [id number] Admin: 11/20/19 00:48 Dose: 101 mls/hr Documented by: [id number] Albumin Human (Albumin 25%) 50 mls @ 50 mls/hr IV Q1H RAJAN Stop: 11/20/19 09:29 Last Infusion: 11/20/19 10:27 Dose: 0 mls/hr Documented by: [id number] Admin: 11/20/19 09:27 Dose: 50 mls/hr Documented by: [id number] Infusion: 11/20/19 08:57 Dose: 0 mls/hr Documented by: [id number] Admin: 11/20/19 07:57 Dose: 50 mls/hr Documented by: [id number] Infusion: 11/20/19 07:51 Dose: 50 mls/hr Documented by: [id number] Admin: 11/20/19 06:51 Dose: 50 mls/hr Documented by: [id number] Infusion: 11/20/19 06:51 Dose: 50 mls/hr Documented by: [id number] Admin: 11/20/19 06:12 Dose: 50 mls/hr Documented by: [id number] Infusion: 11/20/19 06:12 Dose: 50 mls/hr Documented by: [id number] Admin: 11/20/19 05:12 Dose: 50 mls/hr Documented by: [id number] Infusion: 11/20/19 05:12 Dose: 50 mls/hr Documented by: [id number] Admin: 11/20/19 04:00 Dose: 50 mls/hr Documented by: [id number] Infusion: 11/20/19 03:19 Dose: 50 mls/hr Documented by: [id number] Admin: 11/20/19 02:19 Dose: 50 mls/hr Documented by: [id number] Infusion: 11/20/19 02:19 Dose: 50 mls/hr Documented by: [id number] Admin: 11/20/19 01:36 Dose: 50 mls/hr Documented by: [id number] Ioversol (Ioversol 100ml) 93 ml IV ONCE ONE Stop: 11/19/19 12:54 Last Admin: 11/19/19 12:53 Dose: 93 ml Documented by: [id number] Ondansetron HCl (Ondansetron Inj 2 Mg/Ml 2 Ml Vial) 4 mg IV NOW STA Stop: 11/19/19 10:57 Last Admin: 11/19/19 11:29 Dose: 4 mg Documented by: [id number] Sodium Biphosphate/Sodium Phosphate (Sod Phosphate/Sod Biphosphate Enema 132 Ml Btl) 132 ml MI ONE ONE Stop: 11/20/19 10:01 Last Admin: 11/20/19 12:10 Dose: 132 ml Documented by: [id number] Sodium Biphosphate/Sodium Phosphate (Sod Phosphate/Sod Biphosphate Enema 132 Ml Btl) Confirm Administered Dose 132 ml MI .STK-MED ONE Stop: 11/20/19 12:08 Last Admin: 11/20/19 12:12 Dose: Not Given Documented by: [id number] Medical Decision Making Differential Diagnosis Differential diagnosis: Etiologies such as biliary colic, cholecystitis, hepatitis, pancreatitis, cardiac disease, pancreatitis, gastritis, peptic ulcer disease, appendicitis, cystitis, diverticulitis, mesenteric ischemia, inflammatory bowel disease, ileus, bowel obstruction, testicular torsion, aortic pathology, shingles, as well as others were considered. Medical Records Attestation: I reviewed the patient's medical records. Home Medications Current Medication List: was personally reviewed by me Laboratory Data Attestation: I reviewed the patient's lab results. Result diagrams: 11/20/19 05:03 11/20/19 05:03 Lab Results 11/19/19 11/19/19 11/19/19 Range/Units 11:11 11:11 11:11 WBC 8.94 (4.8-10.8) K/uL RBC 4.19 L (4.7-6.1) M/uL Hgb 13.2 L (14.0-18.0) g/dL POC Hgb (14.0-18.0) g/dl Hct 40.2 L (42-52) % POC Hct (42-52) % MCV 95.9 (80-100) fL MCH 31.5 (25-34) pg MCHC 32.8 (32-36) g/dL RDW Std Deviation 59.3 H (36.4-46.3) fL RDW Coeff of Lisa 17.0 H (11.5-14.5) % Plt Count 126 L (130-400) K/uL MPV 12.1 H (7.4-10.4) fL Immature Gran % (Auto) 0.1 % Neut % (Auto) 70.9 % Lymph % (Auto) 12.2 % [place] % (Auto) 15.3 % Eos % (Auto) 1.3 % Baso % (Auto) 0.2 % Neut # (Auto) 6.33 (1.4-6.5) K/uL Lymph # (Auto) 1.09 L (1.2-3.4) K/uL [place] # (Auto) 1.37 H (0.11-0.59) K/uL Eos # (Auto) 0.12 (0-0.5) K/uL Baso # (Auto) 0.02 (0-0.2) K/uL Immature Gran # (Auto) 0.01 (0.00-0.02) K/uL Platelet Estimate Decreased L (Normal) Echinocytes 2+ PT 13.5 H (9.0-12.0) Seconds INR 1.3 H (0.9-1.1) APTT 43.6 H (21.0-31.0) Seconds PTT Ratio 1.6 POC Sodium (135-144) mmol/L Sodium 138 (136-145) mmol/L POC Potassium (3.3-5.0) mmol/L Potassium 4.1 (3.5-5.1) mmol/L POC Chloride (101-112) mmol/L Chloride 108 H (98-107) mmol/L Carbon Dioxide 21 (21-32) mmol/L POC Total CO2 (24-31) mmol/L Anion Gap 9.0 (3-11) POC Anion Gap (16-25) mmol/L POC BUN (7-18) mg/dl BUN 22 H (7-18) mg/dl Creatinine 1.15 (0.6-1.4) mg/dl POC Creatinine (0.6-1.3) mg/dl Est Cr Clr Drug Dosing 59.9 ml/min Est GFR ( Amer) 76.4 Est GFR (Non-Af Amer) 65.9 BUN/Creatinine Ratio 19.4 (10-20) Glucose 73 (70-99) mg/dl POC Glucose (other) (70-99) mg/dl Calcium 8.6 (8.5-10.1) mg/dl POC Ioniz Calcium Ismael (1.12-1.32) mmol/l Total Bilirubin 3.6 H (0.2-1) mg/dl AST 177 H (15-37) U/L ALT 181 H (12-78) U/L Alkaline Phosphatase 175 H (45-117) U/L Total Protein 5.8 L (6.4-8.2) gm/dl Albumin 2.4 L (3.4-5.0) gm/dl Globulin 3.4 (2.5-4.0) gm/dl Albumin/Globulin Ratio 0.7 L (0.9-2) Lipase 164 (73-393) U/L Urine Color Urine Appearance (Clear) Urine pH (4.5-7.5) Ur Specific [place] (1.000-1.030) Urine Protein (Negative) Urine Glucose (UA) (Negative) Urine Ketones (Negative) Urine Blood (Negative) Urine Nitrite (Negative) Urine Bilirubin (Negative) Urine Urobilinogen (Negative) Ur Leukocyte Esterase (Negative) Urine WBC (Auto) (0-5) /hpf Urine RBC (Auto) (0-4) /hpf U Hyaline Cast (Auto) (0-5) /lpf U Epithel Cells (Auto) (0-5) /lpf Urine Bacteria (Auto) (Negative) Urine Yeast 11/19/19 11/19/19 11/19/19 Range/Units 11:15 11:45 12:01 WBC (4.8-10.8) K/uL RBC (4.7-6.1) M/uL Hgb (14.0-18.0) g/dL POC Hgb 13.6 L (14.0-18.0) g/dl Hct (42-52) % POC Hct 40 L (42-52) % MCV (80-100) fL MCH (25-34) pg MCHC (32-36) g/dL RDW Std Deviation (36.4-46.3) fL RDW Coeff of Lisa (11.5-14.5) % Plt Count (130-400) K/uL MPV (7.4-10.4) fL Immature Gran % (Auto) % Neut % (Auto) % Lymph % (Auto) % [place] % (Auto) % Eos % (Auto) % Baso % (Auto) % Neut # (Auto) (1.4-6.5) K/uL Lymph # (Auto) (1.2-3.4) K/uL [place] # (Auto) (0.11-0.59) K/uL Eos # (Auto) (0-0.5) K/uL Baso # (Auto) (0-0.2) K/uL Immature Gran # (Auto) (0.00-0.02) K/uL Platelet Estimate (Normal) Echinocytes PT (9.0-12.0) Seconds INR (0.9-1.1) APTT (21.0-31.0) Seconds PTT Ratio POC Sodium 136 (135-144) mmol/L Sodium (136-145) mmol/L POC Potassium 4.1 (3.3-5.0) mmol/L Potassium (3.5-5.1) mmol/L POC Chloride 106 (101-112) mmol/L Chloride (98-107) mmol/L Carbon Dioxide (21-32) mmol/L POC Total CO2 21 L (24-31) mmol/L Anion Gap (3-11) POC Anion Gap 14.0 L (16-25) mmol/L POC BUN 21 H (7-18) mg/dl BUN (7-18) mg/dl Creatinine (0.6-1.4) mg/dl POC Creatinine 1.1 (0.6-1.3) mg/dl Est Cr Clr Drug Dosing ml/min Est GFR ( Amer) Est GFR (Non-Af Amer) BUN/Creatinine Ratio (10-20) Glucose (70-99) mg/dl POC Glucose (other) 78 (70-99) mg/dl Calcium (8.5-10.1) mg/dl POC Ioniz Calcium Ismael 1.15 (1.12-1.32) mmol/l Total Bilirubin (0.2-1) mg/dl AST (15-37) U/L ALT (12-78) U/L Alkaline Phosphatase (45-117) U/L Total Protein (6.4-8.2) gm/dl Albumin (3.4-5.0) gm/dl Globulin (2.5-4.0) gm/dl Albumin/Globulin Ratio (0.9-2) Lipase (73-393) U/L Urine Color Dark Yellow Dark Yellow Urine Appearance Cloudy A Clear (Clear) Urine pH 8.0 H 6.5 (4.5-7.5) Ur Specific [place] 1.013 1.017 (1.000-1.030) Urine Protein 2+ H 2+ H (Negative) Urine Glucose (UA) Negative Negative (Negative) Urine Ketones Negative Negative (Negative) Urine Blood 3+ H 3+ H (Negative) Urine Nitrite Positive A Negative (Negative) Urine Bilirubin 1+ H 1+ H (Negative) Urine Urobilinogen Negative Negative (Negative) Ur Leukocyte Esterase 3+ H 3+ H (Negative) Urine WBC (Auto) >30 H >30 H (0-5) /hpf Urine RBC (Auto) >30 H 10-30 H (0-4) /hpf U Hyaline Cast (Auto) 1-5 5-10 H (0-5) /lpf U Epithel Cells (Auto) 5-10 H 0-5 (0-5) /lpf Urine Bacteria (Auto) 1+ H 1+ H (Negative) Urine Yeast Not Reportable Imaging Data Radiologist's Impression: CT abd pelvis IV con only CLINICAL HISTORY: abd pain/distention METASTATIC DISEASE COMPARISON STUDY: 10/28/2019 TECHNIQUE: The patient was scanned in a dynamic helical fashion during intravenous administration of 93 cc of Optiray 320 A dose lowering technique was utilized adhering to the principles of ALARA. CT DOSE: 315.34 mGy.cm FINDINGS: Lower chest: There is enlarging 25 mm right lower lobe pulmonary mass. There is a 20 mm pleural-based right lower lobe mass which is also enlarged. There are adjacent right lower lobe airspace opacities. There are dependent right lower lobe atelectatic changes. Liver: Multiple hepatic hypodensities remain similar. The appearance favors cysts. The liver somewhat nodular configuration raises the possibility of underlying cirrhosis Gallbladder: Gallbladder is mildly distended. No calculi are visualized. Spleen: Normal in size and attenuation. Pancreas: Unremarkable. Adrenal glands: Unremarkable. Kidneys: There is been interval insertion of bilateral nephrostomy tubes with resolution of previously identified bilateral hydronephrosis. There is an upper pole right renal cyst. Bowel: There are minimally dilated proximal jejunal loops. This could represent ileus or early/partial small bowel obstruction. Clinical and imaging follow-up is recommended. There is borderline colonic wall thickening which may be secondary to underlying hepatocellular disease. Peritoneum: There is increasing low volume ascites. There is no free intraperitoneal air. Vasculature: The abdominal aorta is normal in course and caliber. Adenopathy: Mesenteric lymph nodes are the upper limits of normal in size. Pelvic viscera: Postsurgical changes involve the bladder. There is pronounced bladder wall thickening. There is infiltration of the perivesical fat. The findings are consistent with the patient's known bladder cancer with probable extension into the perivesical soft tissues. Skeletal structures: No destructive osseous lesions are seen. IMPRESSION: 1. Enlarging right lower lobe pulmonary nodules, consistent with progressive metastatic disease 2. Cirrhotic morphology of the liver with increasing low volume ascites 3. Interval placement of bilateral nephrostomy catheters with resolution of p reviously identified hydronephrosis 4. Persistent asymmetric bladder wall thickening with infiltration of the perivesical fat, consistent with the patient's known bladder carcinoma 5. Mild dilatation of proximal jejunal loops. The appearance is nonspecific and could be secondary to a focal ileus, or early/partial small bowel obstruction. ACT 112: Negative or not required by law. Electronically signed by: German Anderson M.D. 11/19/2019 1:31 PM Dictated: 11/19/19 1320 Transcribed: 11/19/19 1320 Blood Pressure Blood Pressure Findings: Normal blood pressure Blood Pressure Disposition: did not require urgent referral MDM Narrative This patient was evaluated and appeared to be in no significant distress. IV access was obtained and laboratory work was drawn. Patient's physical examination reveals a chronically ill appearing male in no significant distress. The abdomen is distended and tympanitic. IV fluids were initiated and an order for cardiac monitoring was placed. The patient is found to be in a normal sinus rhythm at 84 bpm. Patient was medicated with IV Dilaudid and Zofran. CT imaging of the abdomen and pelvis was performed. There is concern over early SBO versus focal ileus. UA is concerning for infectious etiology from the nephrostomy tubes, left more concerning on the right. Patient was given a dose of IV Zosyn for coverage. The case was discussed with the patient's oncologist, Dr. Boucher at [facility]. He felt the patient's presentation could be managed without transfer which is what the patient prefers. The hospitalist service has been consulted for further management. Patient and are aware of the plan and agree. Impression & Plan Ileus, Pyelonephritis, Hx of obstructive nephropathy, H/O nephrostomy, Malignant neoplasm of bladder metastatic to lung Discharge Plan Visit Data Chief Complaint: Abdominal Pain Stated Complaint: EXTREME ABDOMINAL PAIN ED Provider: Esthela Ladd Discharge Problem: Ileus, Pyelonephritis, Hx of obstructive nephropathy, H/O nephrostomy, Malignant neoplasm of bladder metastatic to lung Patient Disposition: Admitted As Inpatient Discharge Instructions Interventions: ED Discharge Assessment Last Done: 11/19/19 16:32
[2019-11-19] MEDS ORDERED: ALBUTEROL HFA 8 GM INHALER INH PRN (17:14)
[2019-11-19] MEDS ORDERED: ONDANSETRON INJ 2 MG/ML 2 ML VIAL IV PRN (17:14)
[2019-11-19] MEDS ORDERED: LACTATED RINGER'S 1,000 ML IV SCH ×2 (17:14→23:45)
[2019-11-19] MEDS ORDERED: IBUPROFEN 200 MG TAB PO PRN (17:14)
[2019-11-19] MEDS ORDERED: OXYCODONE/ACETAMINOPHEN 5mg/325mg TAB PO PRN (17:14)
[2019-11-19] MEDS ORDERED: HYDROmorphone INJ 0.5 MG/0.5 ML SYR ONE (17:32)
[2019-11-19] MEDS ORDERED: CETIRIZINE HCL 10 MG TABLET PO PRN (17:51)
--- NOTE | 2019-11-19 18:30 | Urology Consultation ---
Date of Consultation November 19, 2019 Assessment & Plan (1) Transitional cell carcinoma of bladder: Met TCC nephrostomy tubes in place - here now for GI/abdominal issues -no interventions required - will follow from a distance History of Present Illness Attending Physician: Nazario Gonzalez MD History of Present Illness (prior creatinine 10)64-year-old gentleman with a history of metastatic bladder cancer who was admitted with abdominal pain He is well-known to our service and he is currently undergoing chemotherapy with Keytruda He has bilateral nephrostomy tubes in place and has a creatinine of 1 - (prior creatinine 10) current abdominal pain seems to be GI in nature - very distended, no BM for several days CT - with asciities, no hydro -nephrostomy tubes in place Allergies Allergy/AdvReac Type Severity Reaction Status Date / Time cat dander Allergy Mild watery eyes Unverified 11/19/19 11:07 No Known Drug Allergies Allergy Verified 11/19/19 11:07 Home Medications Home Medications Medication Instructions Recorded Confirmed Type clonazepam 0.5 mg tablet 0.5 mg PO QPM 04/08/19 11/19/19 History albuterol sulfate 2 puff INHALATION 6XD PRN 04/20/19 11/19/19 History levocetirizine [24HR Allergy 5 mg PO DAILY PRN 05/21/19 11/19/19 History Relief] tiotropium bromide 2.5 2 puffs INH BID #4 gm 08/27/19 11/19/19 Rx mcg/actuation mist for inhalation oxycodone-acetaminophen 5 mg-325 1 tab PO Q8H PRN #15 tab 11/18/19 11/19/19 Rx mg tablet calcium carbonate [Calcium 600] 600 mg PO QAM 11/19/19 11/19/19 History ibuprofen 400 mg PO Q6H PRN 11/19/19 11/19/19 History metoprolol tartrate 50 mg PO BID 11/19/19 11/19/19 History Patient History Medical History Anxiety Asthma ALLERGY INDUCED ASTHMA COPD with emphysema Recently started on Spiriva by pulm Depression Environmental allergies CAT AND DOG DANDER Hyperlipidemia borderline Left upper lobe pulmonary nodule Had recent biopsy that showed metastatic disease from bladder cancer. Transitional cell carcinoma of bladder Urethral stricture Surgical History History of colonoscopy History of hernia surgery History of sinus surgery History of surgical removal of ganglion cyst Hx of wisdom tooth extraction Port-A-Cath in place (06/08/19) Insertion of Mediport Internal Jugular Left with Fluoroscopy Dr. Escobar 06-08-19 Status post surgical removal and fulguration of bladder neoplasm 05/07/2019 [facility], urethrotomy, rt ureter stent placement Family History Mother Diabetes Father Heart disease Kidney stones Other No family history of adverse response to anesthesia Social History Smoking Status: Former smoker Cigarettes Per Day: 10; Smoking End Date: 1999; Second Hand Exposure: No; Do You Dip or Chew Tobacco: No; Tobacco Cessation Education Requested by Patient: No Hx Alcohol Use: Yes Alcohol type: beer, wine and hard liquor Hx Substance Use: No Preferred Language: [place] Communication Ability: Effective Snap Shearer Required: No Beliefs That Will Affect Care: None marital status: Current Living Situation: Spouse current occupational status: employed 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 Other Information That Helps Us Care for You: No Feels Safe at Home: Yes Safety Concerns: Feels Safe At This Time Review of Systems Review of Systems: All systems reviewed & are unremarkable except as noted in HPI & below Physical Exam Constitutional: well developed and well nourished Neck: neck nontender Respiratory: normal respiratory effort; no respiratory distress and does not use accessory muscles Cardiovascular: Rate/Rhythm: regular rate Vessels: radial pulses present Extremities: no edema Gastrointestinal (Abdomen): Inspection/Auscultation: + abdomen distended (tympanitic, no rebound, no guarding) Percussion/Palpation: abdomen soft; abdomen nontender and no guarding nephrostomy sites healthy, clear urine Musculoskeletal: Head/Neck/Chest: normocephalic and head atraumatic Extremities: extremities normal to inspection Skin: no rashes and no lesions Trauma: no evidence of skin trauma Neurologic: awake; not obtunded Speech / Cognition: normal speech Motor/Sensory: no tremor Psychiatric: Orientation: alert and oriented x 3 Genitourinary: no CVA tenderness Lymphatic: no lymphadenopathy Results & Data ([facility]) Vital Signs (Past 12 Hours) Vital Signs Temp Pulse Pulse Pulse Resp BP BP 11/19/19 17:30 36.4 C L 83 18 111/68 11/19/19 16:21 88 20 11/19/19 14:00 82 18 11/19/19 12:24 83 18 11/19/19 10:56 11/19/19 10:29 36.9 C 84 20 116/74 BP Pulse Ox 11/19/19 17:30 94 11/19/19 16:21 104/62 95 11/19/19 14:00 95 11/19/19 12:24 105/79 95 11/19/19 10:56 95 11/19/19 10:29 95 PG Care Time/CCT Total # of Minutes Spent Total Time Spent with Patient: Total time spent is greater than 50% in coordination of care (as documented) at patient's floor/unit and/or counseling patient: Coding Level of Care Code 80315 Inpt Consult Level 3 Diagnoses Transitional cell carcinoma of bladder C67.9
[2019-11-19] MEDS: PIPERACILLIN/TAZOBACTAM 3.375 GM in DEXTROSE 5% 100 ML IV SCH (19:27)
[2019-11-19] MEDS: METOPROLOL TARTRATE 50 MG TAB PO SCH (22:28)
[2019-11-19] MEDS: clonazePAM 0.5 MG TAB PO SCH (22:28)
[2019-11-19] MEDS: HYDROmorphone INJ 0.5 MG/0.5 ML SYR IV PRN (22:48)
[2019-11-20] MEDS ORDERED: HEPARIN 100 UNIT/ML 5ML FLUSH FLUSH PRN (00:13)
[2019-11-20] MEDS: HEPARIN 100 UNIT/ML 5ML FLUSH FLUSH PRN ×4 (00:18→22:23)
[2019-11-20] MEDS ORDERED: PHYTONADIONE 5 MG in SODIUM CHLORIDE 0.9% 50 ML IV ONE (00:45)
[2019-11-20] MEDS: clonazePAM 0.5 MG TAB PO SCH ×2 (00:47→20:17)
[2019-11-20] MEDS: ALBUMIN 25% 50 ML IV SCH ×11 (01:33→09:27)
[2019-11-20] MEDS: PIPERACILLIN/TAZOBACTAM 3.375 GM in DEXTROSE 5% 100 ML IV SCH ×3 (01:38→18:12)
[2019-11-20 05:32] LABS: Hematocrit (blood only) 35.4 % (42-52); Hemoglobin 11.9 g/dL (14.0-18.0); Mean Corpuscular Hemoglobin 32.2 pg (25-34); Mean Corpuscular Hgb Conc 33.6 g/dL (32-36); Mean Corpuscular Volume 95.9 fL (80-100); Mean Platelet Volume 12.1 fL (7.4-10.4); Platelet Count 105 K/uL (130-400); RDW Coefficient of Variation 17.1 % (11.5-14.5); RDW Standard Deviation 59.2 fL (36.4-46.3); Red Blood Count 3.69 M/uL (4.7-6.1); White Blood Count 8.51 K/uL (4.8-10.8)
[2019-11-20 05:44] LABS: INR 1.4 (0.9-1.1); Partial Thromboplastin Ratio 1.4; Partial Thromboplastin Time 39.5 Seconds (21.0-31.0); Prothrombin Time 14.1 Seconds (9.0-12.0)
[2019-11-20 06:05] LABS: Albumin Level 2.6 gm/dl (3.4-5.0); BUN Creatinine Ratio 19.8 (10-20); Bilirubin Direct 2.7 mg/dl (0-0.2); Calcium 8.6 mg/dl (8.5-10.1); Est GFR (African American) 70.5; Est GFR (Non-African American) 60.8; Magnesium 1.6 mg/dl (1.8-2.4); Potassium 4.7 mmol/L (3.5-5.1)
[2019-11-20 06:12] LABS: Albumin Globulin Ratio 0.9 (0.9-2); Bilirubin,Total 4.1 mg/dl (0.2-1); Total Protein 5.6 gm/dl (6.4-8.2)
--- NOTE | 2019-11-20 07:25 | Urology Progress Note ---
Date of Service November 20, 2019 Assessment & Plan (1) Transitional cell carcinoma of bladder: Metastatic TCC No acute issues Here for GI problems Please contact us if there are any new issues that arise pertain to urologic problems We will continue to follow from periphery Admission and Anticipated Discharge Date Admission Date: November 19, 2019 Subjective Subjectively improved this morning Passed significant flatus Less abdominal pressure but not perfect No other major issues Physical Exam Physical Exam: Distended Clear urine output from both nephrostomy tubes Afebrile, vital signs stable Constitutional: well developed and well nourished Respiratory: no respiratory distress Cardiovascular: Extremities: no pedal edema Gastrointestinal (Abdomen): Inspection/Auscultation: abdomen normal to inspection Results & Data ([facility]) Vital Signs (Past 12 Hours) Vital Signs Temp Pulse Resp BP Pulse Ox 11/19/19 23:33 36.8 C 95 H 18 110/67 96 PG Care Time/CCT Total # of Minutes Spent Total Time Spent with Patient: Total time spent is greater than 50% in coordination of care (as documented) at patient's floor/unit and/or counseling patient: Coding Level of Care Code 94081 Subseq Hosp Care Lvl 2 Diagnoses Transitional cell carcinoma of bladder C67.9
--- NOTE | 2019-11-20 07:39 | Magnetic Resonance Report ---
MR MRCP HISTORY: Gallbladder distension, ileus TECHNIQUE: MRCP the abdomen was performed without contrast according to standard departmental protoco l. COMPARISON STUDY: Abdomen and pelvis CT 11/19/2019. FINDINGS: Small amount of ascites. Nodular appearance to the liver consistent with cirrhosis. Heterog eneous signal within the liver without a well-defined mass. Multiple hepatic cysts are suspected. Tra ce gallbladder sludge. No gallbladder wall thickening. Normal caliber common bile duct and main pancr eatic duct. No filling defects within the common bile duct. A few small T2 hyperintense lesions withi n the kidneys which favor cysts. Bilateral percutaneous nephrostomy tubes are noted. No hydronephrosi s. Mild thickening of the duodenum which may be due to the patient's edematous state. Bladder wall th ickening which is partially visualized on this study. Body wall edema. The gallbladder is mildly dist ended. IMPRESSION: 1. Mildly distended gallbladder with trace sludge. No definite gallbladder wall thickening. Edema ofelia rounding the gallbladder is likely related to the generalized ascites. 2. Small amount of ascites. 3. Cirrhotic liver. Heterogeneous appearance to the liver is likely secondary to the cirrhosis. 4. Normal caliber common bile duct. No filling defects within the common bile duct. ACT 112: Negative or not required by law. Electronically signed by: Chet Lira M.D. 11/20/2019 7:37 AM
--- NOTE | 2019-11-20 07:40 | Hospitalist Progress Note ---
Date of Service November 20, 2019 Assessment & Plan (1) Ileus: -Admit to [facility] -Possible spontaneous bacterial peritonitis - pain and distension present, better controlled with dilaudid and mobility etiology ? TCC bladder, metastasis, gallbladder distension, recent nephrostomy tube placement and scar tissue forming adhesions, or liver involvement. -Consult GI, Dr. Guido - plan for U/S with fluid cultures today to r/o SBP -Consult general surgery, Dr. Lebron -CT abdomen pelvis reviewed, shows mildly distended gallbladder, no calculi, bowel with minimally dilated proximal jejunal loops representing ileus or early/partial small bowel obstruction. Borderline colonic wall thickening, bilateral nephrostomy catheters with resolution of previously identified hydronephrosis, persistent asymmetric bladder wall thickening with infiltration of the perivesicular fat -afebrile, no wbc -Keep n.p.o., ok with sips and chips -Continue IV Zosyn -LR 125 mL/hr for now -Add simethicone (2) Transitional cell carcinoma of bladder: -[place], [place] [facility] [place] consult our oncologist here as he is scheduled for Keytruda at [facility] within next week or so. -Consult oncology, Dr. Espino -Started Keytruda, given initial dose during [place] [facility] [place]/02 when bilateral nephrostomy tubes were placed -CT abdomen showing resolvent of hydronephrosis which had previously been present -Sites surrounding nephrostomy tubes appear well-healed, no surrounding erythema, no purulent drainage/bloody drainage from tubes -consult urology, Dr. Bueno (3) Liver metastases: -Noted cirrhotic morphology with increasing low volume ascites on CT (4) Elevated LFTs: -Elevation of LFTs - slightly improved today compared to on admission -Tbili=4.1 -Keytruda dose x 1 may have elevated numbers (5) Left upper lobe pulmonary nodule: -Patient with multiple pulmonary nodules, left upper lobe, right lower lobe consistent with progressive metastatic disease -Currently on room air, no increased O2 requirements on admission (6) COPD with emphysema: -Continue home inhalers, albuterol, Spiriva (7) Hyperlipidemia: -History of such, not on statin therapy (8) Depression: (9) Anxiety: -May continue clonazepam 0.5 mg QPM (10) DVT prophylaxis: - teds, scds CODE: Full Dispo: From home, likely to remain in the hospital x 1-2 days Admission and Anticipated Discharge Date Admission Date: November 19, 2019 Subjective The patient was seen and examined this morning. Pt states doing ok today. He is sitting up reading the [employer] in bed. Reports abd pain in well controlled with dilaudid, having gas pains and still distended compared to yesterday. He is passing flatus, no BM since prior to admission. Currently NPO. Denies fever, chills, sweats. Encouraged ambulation about the halls as he reports movement has helped with abdominal pain. Anticipating U/S abd with fluid removal this morning. Will check fluid studies. Review of Systems Review of Systems: Constitutional: No fever, sweats or chills Eyes: No diplopia, no worsening or blurred vision, requires glasses for reading ENT: normal hearing, no trouble swallowing, MMM Respiratory: No cough, sputum, dyspnea at rest or on exertion Cardiovascular: No chest pain, tightness or palpitations Abdomen: + As per HPI, no n/v. : Nephrostomy tubes bilaterally, draining well, yellow urine, no purulent material, no blood Musculoskeletal: No joint pain, calf pain, swelling Neurologic: No weakness, numbness/tingling, or balance problems Psychiatric: No anxiety or depression Skin: No rash or itch Physical Exam Physical Exam: General: awake, alert, no apparent distress Head: Normocephalic, atraumatic ENT: PERRL, EOMI, no pharyngeal exudate, mucous membranes dry Chest: Clear to auscultation, on room air, no adventitious breath sounds Cardiac: Regular rate and rhythm, no murmur, no JVD, normal peripheral pulses, good capillary refill Abdominal: Hypoactive bowel sounds with tinkling in the LUQ, +distended, + tympanic to percussion, tender throughout, + guarding Extremities: Normal inspection, no peripheral edema or erythema, calfs nontender to palpation Psych: Normal mood and affect Neuro: AAO x 3, strength intact bilaterally and rated 5/5, no motor deficits, speech is clear, no peripheral sensory deficits Results & Data Results & Data ([facility]) Vital Signs (Past 12 Hours) Vital Signs Temp Pulse Resp BP Pulse Ox 11/19/19 23:33 36.8 C 95 H 18 110/67 96 PG Care Time/CCT Total # of Minutes Spent Total Time Spent with Patient: Total time spent is greater than 50% in coordination of care (as documented) at patient's floor/unit and/or counseling patient: Coding Level of Care Code 58228 Subseq Hosp Care Lvl 3 Diagnoses Ileus K56.7 Transitional cell carcinoma of bladder C67.9 Liver metastases C78.7 Elevated LFTs R79.89 Left upper lobe pulmonary nodule R91.1 COPD with emphysema J43.9 Hyperlipidemia E78.5 Depression F32.9 Anxiety F41.9 DVT prophylaxis Z29.9
[2019-11-20] MEDS: HYDROmorphone INJ 0.5 MG/0.5 ML SYR IV PRN ×2 (07:51→20:21)
[2019-11-20] MEDS: METOPROLOL TARTRATE 50 MG TAB PO SCH ×2 (09:13→20:27)
[2019-11-20] MEDS: CALCIUM CARBONATE 1250MG TAB PO SCH (09:14)
[2019-11-20] MEDS ORDERED: HYDROmorphone INJ 0.5 MG/0.5 ML SYR IV STA (09:15)
[2019-11-20] MEDS: SIMETHICONE 80 MG CHEW PO PRN ×2 (09:17→15:48)
[2019-11-20] MEDS: UMECLIDINIUM BROMIDE 62.5MCG/BLISTER 7 PUFFS/INHALER INH SCH (09:27)
--- NOTE | 2019-11-20 09:38 | Gastrointestinal Consultation ---
Date of Consultation November 20, 2019 Assessment & Plan (1) Elevated LFTs: (2) Ileus: Received consult on patient due to history of metastatic bladder CA, cirrhosis, partial small bowel obstruction, increasing bilirubin. Patient with ongoing complaints of abdominal pain and constipation. MRCP demonstrated trace gallbladder sludge with no definite gallbladder wall thickening. Also demonstrated cirrhotic liver. Elevated LFTs with slight improvement today compared to admission. Has received Keytruda x1 dose. Administer fleets enema WA x1 now, repeat if needed Continue n.p.o., okay with sips and chips. Please refer to supervising physician addendum for further recommendations. History of Present Illness Attending Physician: Avery Dunbar, History of Present Illness The patient is a 64-year-old male with past medical history of anxiety, asthma, COPD with emphysema, depression, environmental allergies to cat and dog dander, hyperlipidemia, metastatic bladder cancer with mets to lung, transitional cell carcinoma of the bladder, urethral stricture, bilateral nephrostomy tube who presented to the emergency department 11/19/2019 due to complaints of abdominal distention and pain with nausea. 2 weeks ago he had bilateral nephrostomies placed due to acute renal failure from obstructive changes due to his known metastatic bladder cancer. Patient was subsequently admitted due to ileus noted on CT of the proximal jejunal loops and abnormal LFTs. On exam/interview today, he reports that he has had abdominal pain, cramping, constipation since September 2019. He reports chemotherapy with Dr. Eaton from May 2019 to July 2019. He is also had radiation therapy. He states that he got through his chemo with very minimal problems. He has had ongoing abdominal pain, constipation, cramps that he was scheduled to see Dr. Guido for on 11/24/2019 for new patient office evaluation. Patient reports lower abdominal pain, abdominal distention, increased nausea with abdominal pain, constipation, poor appetite, and flatus. He denies any fever, chills, vomiting, heartburn, significant weight loss. Reports last bowel movement was yesterday morning was very small hard and difficult to pass. The patient is a former smoker. He reports that he smoked less than 1 pack of cigarettes per day for 20 years. He quit smoking 20 years ago. 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 He is with adult children. Allergies Allergy/AdvReac Type Severity Reaction Status Date / Time cat dander Allergy Mild watery eyes Unverified 11/19/19 11:07 No Known Drug Allergies Allergy Verified 11/19/19 11:07 Home Medications Home Medications Medication Instructions Recorded Confirmed Type clonazepam 0.5 mg tablet 0.5 mg PO QPM 04/08/19 11/19/19 History albuterol sulfate 2 puff INHALATION 6XD PRN 04/20/19 11/19/19 History levocetirizine [24HR Allergy 5 mg PO DAILY PRN 05/21/19 11/19/19 History Relief] tiotropium bromide 2.5 2 puffs INH BID #4 gm 08/27/19 11/19/19 Rx mcg/actuation mist for inhalation oxycodone-acetaminophen 5 mg-325 1 tab PO Q8H PRN #15 tab 11/18/19 11/19/19 Rx mg tablet calcium carbonate [Calcium 600] 600 mg PO QAM 11/19/19 11/19/19 History ibuprofen 400 mg PO Q6H PRN 11/19/19 11/19/19 History metoprolol tartrate 50 mg PO BID 11/19/19 11/19/19 History Patient History Medical History Anxiety Asthma ALLERGY INDUCED ASTHMA COPD with emphysema Recently started on Spiriva by pulm Depression Environmental allergies CAT AND DOG DANDER Hyperlipidemia borderline Left upper lobe pulmonary nodule Had recent biopsy that showed metastatic disease from bladder cancer. Transitional cell carcinoma of bladder Urethral stricture Surgical History History of colonoscopy History of hernia surgery History of sinus surgery History of surgical removal of ganglion cyst Hx of wisdom tooth extraction Port-A-Cath in place (06/08/19) Insertion of Mediport Internal Jugular Left with Fluoroscopy Dr. Escobar 3-2 3-20 Status post surgical removal and fulguration of bladder neoplasm 05/07/2019 [facility], urethrotomy, rt ureter stent placement Family History Mother Diabetes Father Heart disease Kidney stones Other No family history of adverse response to anesthesia Social History Smoking Status: Former smoker Cigarettes Per Day: 10; Smoking End Date: 1999; Second Hand Exposure: No; Do You Dip or Chew Tobacco: No; Tobacco Cessation Education Requested by Patient: No Hx Alcohol Use: Yes Alcohol type: beer, wine and hard liquor Hx Substance Use: No Preferred Language: Khmer Communication Ability: Effective 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 Required: No Beliefs That Will Affect Care: None marital status: Current Living Situation: Spouse current occupational status: employed 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 Other Information That Helps Us Care for You: No Feels Safe at Home: Yes Safety Concerns: Feels Safe At This Time Review of Systems Review of Systems: All systems reviewed & are unremarkable except as noted in HPI & below Physical Exam Constitutional: WD/WN, vitals as above Eyes: PERRL, conjunctivae normal, anicteric sclerae wears corrective lenses ENMT: external ear and nose normal, oropharynx normal Neck: trachea midline, no thyromegaly Respiratory: normal respiratory effort, lungs clear to auscultation Cardiovascular: RRR, no murmur, no edema left subclavian aport Gastrointestinal (Abdomen): Inspection/Auscultation: abdomen normal to inspec tion, + abdomen distended and + hypoactive bowel sounds Percussion/Palpation: + abdomen tender, + guarding and abdomen soft bilateral nephrostomy tubes with clear dark yellow drainage Musculoskeletal: Extremities: no cyanosis and no clubbing Skin: no rashes, warm and dry Neurologic: PERRL, EOMI, accommodation nl, no face palsy, no dysarthria Psychiatric: A+Ox3, euthymic affect Results & Data ([facility]) Vital Signs (Past 12 Hours) Vital Signs Temp Pulse Resp BP BP Pulse Ox 11/20/19 07:42 36.7 C 99 H 18 117/71 92 11/19/19 23:33 36.8 C 95 H 18 110/67 96 Laboratory Results - last 24 hr 11/19/19 11/19/19 11/19/19 11:11 11:11 11:11 WBC 8.94 RBC 4.19 L Hgb 13.2 L POC Hgb Hct 40.2 L POC Hct MCV 95.9 MCH 31.5 MCHC 32.8 RDW Std Deviation 59.3 H RDW Coeff of Lisa 17.0 H Plt Count 126 L MPV 12.1 H Immature Gran % (Auto) 0.1 Neut % (Auto) 70.9 Lymph % (Auto) 12.2 Dewitt % (Auto) 15.3 Eos % (Auto) 1.3 Baso % (Auto) 0.2 Neut # (Auto) 6.33 Lymph # (Auto) 1.09 L Dewitt # (Auto) 1.37 H Eos # (Auto) 0.12 Baso # (Auto) 0.02 Immature Gran # (Auto) 0.01 Platelet Estimate Decreased L Echinocytes 2+ PT 13.5 H INR 1.3 H APTT 43.6 H PTT Ratio 1.6 POC Sodium Sodium 138 POC Potassium Potassium 4.1 POC Chloride Chloride 108 H Carbon Dioxide 21 POC Total CO2 Anion Gap 9.0 POC Anion Gap POC BUN BUN 22 H Creatinine 1.15 POC Creatinine Est Cr Clr Drug Dosing 59.9 Est GFR ( Amer) 76.4 Est GFR (Non-Af Amer) 65.9 BUN/Creatinine Ratio 19.4 Glucose 73 POC Glucose (other) Calcium 8.6 POC Ioniz Calcium Ismael Phosphorus Magnesium Total Bilirubin 3.6 H Direct Bilirubin AST 177 H ALT 181 H Alkaline Phosphatase 175 H Lactate Dehydrogenase Total Protein 5.8 L Albumin 2.4 L Globulin 3.4 Albumin/Globulin Ratio 0.7 L Lipase 164 Urine Color Urine Appearance Urine pH Ur Specific [place] Urine Protein Urine Glucose (UA) Urine Ketones Urine Blood Urine Nitrite Urine Bilirubin Urine Urobilinogen Ur Leukocyte Esterase Urine WBC (Auto) Urine RBC (Auto) U Hyaline Cast (Auto) U Epithel Cells (Auto) Urine Bacteria (Auto) Urine Yeast 11/19/19 11/19/19 11/19/19 11:15 11:45 12:01 WBC RBC Hgb POC Hgb 13.6 L Hct POC Hct 40 L MCV MCH MCHC RDW Std Deviation RDW Coeff of Lisa Plt Count MPV Immature Gran % (Auto) Neut % (Auto) Lymph % (Auto) Dewitt % (Auto) Eos % (Auto) Baso % (Auto) Neut # (Auto) Lymph # (Auto) Dewitt # (Auto) Eos # (Auto) Baso # (Auto) Immature Gran # (Auto) Platelet Estimate Echinocytes PT INR APTT PTT Ratio POC Sodium 136 Sodium POC Potassium 4.1 Potassium POC Chloride 106 Chloride Carbon Dioxide POC Total CO2 21 L Anion Gap POC Anion Gap 14.0 L POC BUN 21 H BUN Creatinine POC Creatinine 1.1 Est Cr Clr Drug Dosing Est GFR ( Amer) Est GFR (Non-Af Amer) BUN/Creatinine Ratio Glucose POC Glucose (other) 78 Calcium POC Ioniz Calcium Ismael 1.15 Phosphorus Magnesium Total Bilirubin Direct Bilirubin AST ALT Alkaline Phosphatase Lactate Dehydrogenase Total Protein Albumin Globulin Albumin/Globulin Ratio Lipase Urine Color Dark Yellow Dark Yellow Urine Appearance Cloudy A Clear Urine pH 8.0 H 6.5 Ur Specific [place] 1.013 1.017 Urine Protein 2+ H 2+ H Urine Glucose (UA) Negative Negative Urine Ketones Negative Negative Urine Blood 3+ H 3+ H Urine Nitrite Positive A Negative Urine Bilirubin 1+ H 1+ H Urine Urobilinogen Negative Negative Ur Leukocyte Esterase 3+ H 3+ H Urine WBC (Auto) >30 H >30 H Urine RBC (Auto) >30 H 10-30 H U Hyaline Cast (Auto) 1-5 5-10 H U Epithel Cells (Auto) 5-10 H 0-5 Urine Bacteria (Auto) 1+ H 1+ H Urine Yeast Not Reportable 11/20/19 11/20/19 11/20/19 05:03 05:03 05:03 WBC 8.51 RBC 3.69 L Hgb 11.9 L POC Hgb Hct 35.4 L POC Hct MCV 95.9 MCH 32.2 MCHC 33.6 RDW Std Deviation 59.2 H RDW Coeff of Lisa 17.1 H Plt Count 105 L MPV 12.1 H Immature Gran % (Auto) Neut % (Auto) Lymph % (Auto) Dewitt % (Auto) Eos % (Auto) Baso % (Auto) Neut # (Auto) Lymph # (Auto) Dewitt # (Auto) Eos # (Auto) Baso # (Auto) Immature Gran # (Auto) Platelet Estimate Echinocytes PT 14.1 H INR 1.4 H APTT 39.5 H PTT Ratio 1.4 POC Sodium Sodium 138 POC Potassium Potassium 4.7 POC Chloride Chloride 107 Carbon Dioxide 22 POC Total CO2 Anion Gap 8.0 POC Anion Gap POC BUN BUN 24 H Creatinine 1.23 POC Creatinine Est Cr Clr Drug Dosing 56.0 Est GFR ( Amer) 70.5 Est GFR (Non-Af Amer) 60.8 BUN/Creatinine Ratio 19.8 Glucose 60 L POC Glucose (other) Calcium 8.6 POC Ioniz Calcium Ismael Phosphorus 4.0 Magnesium 1.6 L Total Bilirubin 4.1 H Direct Bilirubin 2.7 H AST 143 H ALT 150 H Alkaline Phosphatase 138 H Lactate Dehydrogenase Total Protein 5.6 L Albumin 2.6 L Globulin 3.0 Albumin/Globulin Ratio 0.9 Lipase Urine Color Urine Appearance Urine pH Ur Specific [place] Urine Protein Urine Glucose (UA) Urine Ketones Urine Blood Urine Nitrite Urine Bilirubin Urine Urobilinogen Ur Leukocyte Esterase Urine WBC (Auto) Urine RBC (Auto) U Hyaline Cast (Auto) U Epithel Cells (Auto) Urine Bacteria (Auto) Urine Yeast 11/20/19 05:03 WBC RBC Hgb POC Hgb Hct POC Hct MCV MCH MCHC RDW Std Deviation RDW Coeff of Lisa Plt Count MPV Immature Gran % (Auto) Neut % (Auto) Lymph % (Auto) Dewitt % (Auto) Eos % (Auto) Baso % (Auto) Neut # (Auto) Lymph # (Auto) Dewitt # (Auto) Eos # (Auto) Baso # (Auto) Immature Gran # (Auto) Platelet Estimate Echinocytes PT INR APTT PTT Ratio POC Sodium Sodium POC Potassium Potassium POC Chloride Chloride Carbon Dioxide POC Total CO2 Anion Gap POC Anion Gap POC BUN BUN Creatinine POC Creatinine Est Cr Clr Drug Dosing Est GFR ( Amer) Est GFR (Non-Af Amer) BUN/Creatinine Ratio Glucose POC Glucose (other) Calcium POC Ioniz Calcium Ismael Phosphorus Magnesium Total Bilirubin Direct Bilirubin AST ALT Alkaline Phosphatase Lactate Dehydrogenase 387 H Total Protein Albumin Globulin Albumin/Globulin Ratio Lipase Urine Color Urine Appearance Urine pH Ur Specific [place] Urine Protein Urine Glucose (UA) Urine Ketones Urine Blood Urine Nitrite Urine Bilirubin Urine Urobilinogen Ur Leukocyte Esterase Urine WBC (Auto) Urine RBC (Auto) U Hyaline Cast (Auto) U Epithel Cells (Auto) Urine Bacteria (Auto) Urine Yeast 11/19/2019: MRCP IMPRESSION: 1. Mildly distended gallbladder with trace sludge. No definite gallbladder wall thickening. Edema surrounding the gallbladder is likely related to the generalized ascites. 2. Small amount of ascites. 3. Cirrhotic liver. Heterogeneous appearance to the liver is likely secondary to the cirrhosis. 4. Normal caliber common bile duct. No filling defects within the common bile duct. 11/19/2019: CT abd pelvis IV con only IMPRESSION: 1. Enlarging right lower lobe pulmonary nodules, consistent with progressive metastatic disease 2. Cirrhotic morphology of the liver with increasing low volume ascites 3. Interval placement of bilateral nephrostomy catheters with resolution of previously identified hydronephrosis 4. Persistent asymmetric bladder wall thickening with infiltration of the perivesical fat, consistent with the patient's known bladder carcinoma 5. Mild dilatation of proximal jejunal loops. The appearance is nonspecific and could be secondary to a focal ileus, or early/partial small bowel obstruction.
[2019-11-20] MEDS ORDERED: SOD PHOSPHATE/SOD BIPHOSPHATE ENEMA 132 ML BTL PR ONE ×2 (10:00→12:07)
--- NOTE | 2019-11-20 11:59 | Ultrasound Report ---
PARACENTESIS UNDER ULTRASOUND GUIDANCE CLINICAL HISTORY: concern for spontaneous bacterial peritonitis ABDOMINAL PAIN COMPARISON STUDY: No previous studies for comparison. FINDINGS: The risks, benefits, and alternatives to the procedure were discussed with the patient. John monahan informed consent was obtained. Following real-time ultrasound localization, the skin was prepped and draped. Following local anesthesia with Xylocaine, under ultrasound guidance, a 22-gauge needle was inserted into the right upper quadrant peritoneal space, and 10 cc of straw-colored fluid was rem talha by syringe suction. The patient tolerated the procedure well and left the department in satisfactory condition. IMPRESSION: Successful ultrasound-guided paracentesis with removal of approximately 10 cc of ascitic fluid. The fluid was sent for laboratory analysis as specified by the referring clinician. ACT 112: Negative or not required by law. Electronically signed by: German Anderson M.D. 11/20/2019 11:57 AM
[2019-11-20 12:39] LABS: Albumin Peritoneal Fluid 0.8 g/dl; Amylase Peritoneal Fluid 13 U/L; Glucose Peritoneal Fluid 52 mg/dl; LDH Peritoneal Fluid 111 U/L; Total Protein Peritoneal Fluid 1.5 g/dl; Triglyceride Peritoneal Fluid 49 mg/dl
[2019-11-20 12:47] LABS: Appearance Peritoneal Fluid CLOUDY; Basophils, Fluid 0 %; Color Peritoneal Fluid YELLOW; Eosinophils, Fluid 1 %; Lymphocytes, Fluid 30 %; Mono,Macrophage,Mesothelial 20 %; Neutrophils, Fluid 5 %; RBC Peritoneal Fluid (A) < 3000 /uL; WBC Peritoneal Fluid (A) 303 /ul (0-300)
--- NOTE | 2019-11-20 15:41 | Surgery Consultation ---
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 Recently had bilateral nephrostomy tubes placed for obstructive acute kidney failure down at [facility]. CT scan showing evidence of mild dilation of jejunum and distended gallbladder. Labs showed elevated lfts and t.bili 3.6 --> now 4.1. MRCP showing no biliary obstruction or evidence of acute cholecystitis. Plan: There is no surgical indication at this time. Patient's abdominal pain may be secondary to ascites and possible SBP (paracentesis and fluid sent for culture which is still pending), Ileus, or his metastatic disease. He is passing gas and has not had any vomiting so partial SBO is less likely on differential. He has no RUQ abdominal pain, postprandial pain and MRCP showing no signs of acute cholecystitis or biliary obstruction. Would continue clear liquids Continue medical management Continue GI recommendations for fleet enema Dr. Beard covering this weekend. (2) Elevated LFTs: plan as above likely secondary to radiologic evidence of cirrhosis (3) Ileus: Plan as above Dr. Lebron has seen and examined pt, agrees with above please see addendum for further recommendations/plan. Supervising Physician Co-Signing Physician Notes I interviewed and examined this patient I agree with the above note. He has ascites which is the most likely reason for his abdominal distention. There was minimal bowel dilatation proximally. There was no evidence of a bowel obstruction. He has no nausea at the present time. His abdominal pain is mostly lower. That may be related to the bladder tumor itself. The etiology of the cirrhosis is unclear as well. His MRCP did not show evidence of gallbladder issue other than some fluid around it which may be related to the ascites. There is no wall thickening and no stones. I do not feel that there is any need for surgical intervention at this time. Considering the patient's pulmonary disease, cirrhosis and recent chemotherapy he would be at high risk for surgical intervention. 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 States since September he has had intermittent abdominal pain, mostly lower with bloating and nausea with the pain gets severe. Constipation present. Emergency room work-up included labs which showed no leukocytosis. LFTS elevated as well as T. bili at 3.6 .CT scan showed mildly dilated jejunal loops and distended gallbladder. Our services have been consulted for ileus/partial SBO. Allergies Allergy/AdvReac Type Severity Reaction Status Date / Time cat dander Allergy Mild watery eyes Unverified 11/19/19 11:07 No Known Drug Allergies Allergy Verified 11/19/19 11:07 Home Medications Home Medications Medication Instructions Recorded Confirmed Type clonazepam 0.5 mg tablet 0.5 mg PO QPM 04/08/19 11/19/19 History albuterol sulfate 2 puff INHALATION 6XD PRN 04/20/19 11/19/19 History levocetirizine [24HR Allergy 5 mg PO DAILY PRN 05/21/19 11/19/19 History Relief] tiotropium bromide 2.5 2 puffs INH BID #4 gm 08/27/19 11/19/19 Rx mcg/actuation mist for inhalation oxycodone-acetaminophen 5 mg-325 1 tab PO Q8H PRN #15 tab 11/18/19 11/19/19 Rx mg tablet calcium carbonate [Calcium 600] 600 mg PO QAM 11/19/19 11/19/19 History ibuprofen 400 mg PO Q6H PRN 11/19/19 11/19/19 History metoprolol tartrate 50 mg PO BID 11/19/19 11/19/19 History Patient History Medical History Anxiety Asthma ALLERGY INDUCED ASTHMA COPD with emphysema Recently started on Spiriva by pul Depression Environmental allergies CAT AND DOG DANDER Hyperlipidemia borderline Left upper lobe pulmonary nodule Had recent biopsy that showed metastatic disease from bladder cancer. Transitional cell carcinoma of bladder Urethral stricture Surgical History History of colonoscopy History of hernia surgery History of sinus surgery History of surgical removal of ganglion cyst Hx of wisdom tooth extraction Port-A-Cath in place (06/08/19) Insertion of Mediport Internal Jugular Left with Fluoroscopy Dr. Escobar 06-08-19 Status post surgical removal and fulguration of bladder neoplasm 05/07/2019 [facility], urethrotomy, rt ureter stent placement Family History Mother Diabetes Father Heart disease Kidney stones Other No family history of adverse response to anesthesia Social History Smoking Status: Former smoker Cigarettes Per Day: 10; Smoking End Date: 1999; Second Hand Exposure: No; Do You Dip or Chew Tobacco: No; Tobacco Cessation Education Requested by Patient: No Hx Alcohol Use: Yes Alcohol type: beer, wine and hard liquor Hx Substance Use: No Preferred Language: Uzbek Communication Ability: Effective Title Department Manager Required: No Beliefs That Will Affect Care: None marital status: Current Living Situation: Spouse current occupational status: employed 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 Other Information That Helps Us Care for You: No Feels Safe at Home: Yes Safety Concerns: Feels Safe At This Time Review of Systems Review of Systems: All systems reviewed & are unremarkable except as noted in HPI & below Physical Exam Constitutional: WD/WN, vitals as above no acute distress and not ill appearing Respiratory: normal respiratory effort; no respiratory distress Gastrointestinal (Abdomen): Inspection/Auscultation: + abdomen distended (moderate) Percussion/Palpation: abdomen soft and + ascites; abdomen nontender, no guarding and abdomen not rigid bilateral neprhostomy tubes Skin: no rashes, warm and dry + jaundice (mild icterus of the eyes) Psychiatric: A+Ox3, euthymic affect Results & Data ([facility]) Vital Signs (Past 12 Hours) Vital Signs Temp Pulse Pulse Resp BP Pulse Ox 11/20/19 13:11 37.3 C 61 61 16 105/64 91 11/20/19 11:17 37.1 C 65 16 98/61 L 92 11/20/19 07:42 36.7 C 99 H 18 117/71 92 Laboratory Results 11/20/19 11/20/19 11/20/19 Range/Units Unknown 05:03 05:03 WBC (4.8-10.8) K/uL RBC (4.7-6.1) M/uL Hgb (14.0-18.0) g/dL Hct (42-52) % MCV (80-100) fL MCH (25-34) pg MCHC (32-36) g/dL RDW Std Deviation (36.4-46.3) fL RDW Coeff of Lisa (11.5-14.5) % Plt Count (130-400) K/uL MPV (7.4-10.4) fL PT (9.0-12.0) Seconds INR (0.9-1.1) APTT (21.0-31.0) Seconds PTT Ratio Sodium 138 (136-145) mmol/L Potassium 4.7 (3.5-5.1) mmol/L Chloride 107 (98-107) mmol/L Carbon Dioxide 22 (21-32) mmol/L Anion Gap 8.0 (3-11) BUN 24 H (7-18) mg/dl Creatinine 1.23 (0.6-1.4) mg/dl Est Cr Clr Drug Dosing 56.0 ml/min Est GFR ( Amer) 70.5 Est GFR (Non-Af Amer) 60.8 BUN/Creatinine Ratio 19.8 (10-20) Glucose 60 L (70-99) mg/dl Calcium 8.6 (8.5-10.1) mg/dl Phosphorus 4.0 (2.5-4.9) mg/dl Magnesium 1.6 L (1.8-2.4) mg/dl Total Bilirubin 4.1 H (0.2-1) mg/dl Direct Bilirubin 2.7 H (0-0.2) mg/dl AST 143 H (15-37) U/L ALT 150 H (12-78) U/L Alkaline Phosphatase 138 H (45-117) U/L Lactate Dehydrogenase 387 H (87-241) U/L Total Protein 5.6 L (6.4-8.2) gm/dl Albumin 2.6 L (3.4-5.0) gm/dl Globulin 3.0 (2.5-4.0) gm/dl Albumin/Globulin Ratio 0.9 (0.9-2) Fluid Neutrophils % 5 % Fluid Lymphocytes % 30 % Fluid Eosinophils % 1 % Fluid Basophils % 0 % Fluid Meso/Macro/Medina % 20 % Peritoneal Color YELLOW Peritoneal Appearance CLOUDY Peritoneal WBC 303 H (0-300) /ul Peritoneal RBC < 3000 /uL Peritoneal Other Cells 44.0 % Peritoneal Tot Protein 1.5 g/dl Peritoneal Albumin 0.8 g/dl Peritoneal LDH 111 U/L Peritoneal Glucose 52 mg/dl Peritoneal Amylase 13 U/L Peritoneal Triglycerid 49 mg/dl 11/20/19 11/20/19 Range/Units 05:03 05:03 WBC 8.51 (4.8-10.8) K/uL RBC 3.69 L (4.7-6.1) M/uL Hgb 11.9 L (14.0-18.0) g/dL Hct 35.4 L (42-52) % MCV 95.9 (80-100) fL MCH 32.2 (25-34) pg MCHC 33.6 (32-36) g/dL RDW Std Deviation 59.2 H (36.4-46.3) fL RDW Coeff of Lisa 17.1 H (11.5-14.5) % Plt Count 105 L (130-400) K/uL MPV 12.1 H (7.4-10.4) fL PT 14.1 H (9.0-12.0) Seconds INR 1.4 H (0.9-1.1) APTT 39.5 H (21.0-31.0) Seconds PTT Ratio 1.4 Sodium (136-145) mmol/L Potassium (3.5-5.1) mmol/L Chloride (98-107) mmol/L Carbon Dioxide (21-32) mmol/L Anion Gap (3-11) BUN (7-18) mg/dl Creatinine (0.6-1.4) mg/dl Est Cr Clr Drug Dosing ml/min Est GFR ( Amer) Est GFR (Non-Af Amer) BUN/Creatinine Ratio (10-20) Glucose (70-99) mg/dl Calcium (8.5-10.1) mg/dl Phosphorus (2.5-4.9) mg/dl Magnesium (1.8-2.4) mg/dl Total Bilirubin (0.2-1) mg/dl Direct Bilirubin (0-0.2) mg/dl AST (15-37) U/L ALT (12-78) U/L Alkaline Phosphatase (45-117) U/L Lactate Dehydrogenase (87-241) U/L Total Protein (6.4-8.2) gm/dl Albumin (3.4-5.0) gm/dl Globulin (2.5-4.0) gm/dl Albumin/Globulin Ratio (0.9-2) Fluid Neutrophils % % Fluid Lymphocytes % % Fluid Eosinophils % % Fluid Basophils % % Fluid Meso/Macro/Medina % % Peritoneal Color Peritoneal Appearance Peritoneal WBC (0-300) /ul Peritoneal RBC /uL Peritoneal Other Cells % Peritoneal Tot Protein g/dl Peritoneal Albumin g/dl Peritoneal LDH U/L Peritoneal Glucose mg/dl Peritoneal Amylase U/L Peritoneal Triglycerid mg/dl Diagnostic Findings CT abd pelvis IV con only CLINICAL HISTORY: abd pain/distention METASTATIC DISEASE COMPARISON STUDY: 10/28/2019 TECHNIQUE: The patient was scanned in a dynamic helical fashion during intravenous administration of 93 cc of Optiray 320 A dose lowering technique was utilized adhering to the principles of ALARA. CT DOSE: 315.34 mGy.cm FINDINGS: Lower chest: There is enlarging 25 mm right lower lobe pulmonary mass. There is a 20 mm pleural-based right lower lobe mass which is also enlarged. There are adjacent right lower lobe airspace opacities. There are dependent right lower lobe atelectatic changes. Liver: Multiple hepatic hypodensities remain similar. The appearance favors cysts. The liver somewhat nodular configuration raises the possibility of underlying cirrhosis Gallbladder: Gallbladder is mildly distended. No calculi are visualized. Spleen: Normal in size and attenuation. Pancreas: Unremarkable. Adrenal glands: Unremarkable. Kidneys: There is been interval insertion of bilateral nephrostomy tubes with resolution of previously identified bilateral hydronephrosis. There is an upper pole right renal cyst. Bowel: There are minimally dilated proximal jejunal loops. This could represent ileus or early/partial small bowel obstruction. Clinical and imaging follow-up is recommended. There is borderline colonic wall thickening which may be secondary to underlying hepatocellular disease. Peritoneum: There is increasing low volume ascites. There is no free intraperitoneal air. Vasculature: The abdominal aorta is normal in course and caliber. Adenopathy: Mesenteric lymph nodes are the upper limits of normal in size. Pelvic viscera: Postsurgical changes involve the bladder. There is pronounced bladder wall thickening. There is infiltration of the perivesical fat. The findings are consistent with the patient's known bladder cancer with probable extension into the perivesical soft tissues. Skeletal structures: No destructive osseous lesions are seen. IMPRESSION: 1. Enlarging right lower lobe pulmonary nodules, consistent with progressive metastatic disease 2. Cirrhotic morphology of the liver with increasing low volume ascites 3. Interval placement of bilateral nephrostomy catheters with resolution of previously identified hydronephrosis 4. Persistent asymmetric bladder wall thickening with infiltration of the perivesical fat, consistent with the patient's known bladder carcinoma 5. Mild dilatation of proximal jejunal loops. The appearance is nonspecific and could be secondary to a focal ileus, or early/partial small bowel obstruction. MR MRCP HISTORY: Gallbladder distension, ileus TECHNIQUE: MRCP the abdomen was performed without contrast according to standard departmental protocol. COMPARISON STUDY: Abdomen and pelvis CT 11/19/2019. FINDINGS: Small amount of ascites. Nodular appearance to the liver consistent with cirrhosis. Heterogeneous signal within the liver without a well-defined mass. Multiple hepatic cysts are suspected. Trace gallbladder sludge. No gallbladder wall thickening. Normal caliber common bile duct and main pancreatic duct. No filling defects within the common bile duct. A few small T2 hyperintense lesions within the kidneys which favor cysts. Bilateral percutaneous nephrostomy tubes are noted. No hydronephrosis. Mild thickening of the duodenum which may be due to the patient's edematous state. Bladder wall thickening which is partially visualized on this study. Body wall edema. The gallbladder is mildly distended. IMPRESSION: 1. Mildly distended gallbladder with trace sludge. No definite gallbladder wall thickening. Edema surrounding the gallbladder is likely related to the generalized ascites. 2. Small amount of ascites. 3. Cirrhotic liver. Heterogeneous appearance to the liver is likely secondary to the cirrhosis. 4. Normal caliber common bile duct. No filling defects within the common bile duct.
--- NOTE | 2019-11-20 15:51 | Consultation Report ---
DATE OF CONSULTATION: 11/20/2019 Addendum to a consult note done by Arlene Locke: I examined the patient and discussed his symptoms. He is having crampy abdominal pain, constipation and abdominal distention with some nausea. He did have an appointment to be seen as an outpatient, but ended up in the hospital prior to that appointment. He has bilateral nephrostomies for bladder cancer with pulmonary metastases. He has completed radiation and chemo. On admission, his CT scan showed some distended small bowel and he was given a Fleet Enema this morning and has been passing some gas and a little bit of stool since then. IMPRESSION: The patient is developing an ileus, possibly from intra-abdominal metastases. At this point, I would recommend that we continue with Fleet Enema until he opens up from below and then add MiraLax from above for maintenance to keep his stool soft and moving. I would avoid fiber. He does incidentally appear to have cirrhosis on his abdominal CAT scan. This may be related to prior alcohol use. His liver seems to be relatively well compensated at this time, but it may be worth noting that he has cirrhosis if he has future medications or treatments planned. I do not plan on pursuing an extensive evaluation of his liver at this point given his underlying metastatic cancer. We will follow the patient during his hospital stay.
--- NOTE | 2019-11-20 17:30 | Consultation Report ---
DATE OF CONSULTATION: 11/20/2019 HISTORY OF PRESENT ILLNESS: The patient is a 64-year-old man with metastatic bladder cancer. He has cancer remaining in his bladder and in addition has pulmonary metastases. The patient is receiving a Keytruda in hope of obtaining a remission in his disease. He has had 3 treatments thus far. The patient also of late has been complaining of abdominal bloating and pain. He in addition takes narcotics for a poorly understood pain syndrome. His pain is characterized by "spasms" in the legs and occasional back pain. He was given narcotic prescription for oxycodone by another physician, but does not recall being evaluated for the cause of this pain. During this hospitalization a CAT scan was done showing a small bowel ileus. He has also had trouble moving his bowels. The patient in addition, because it is a large bladder cancer, has bilateral nephrostomies. He denies fevers or rigors. Physical exam at the cancer center was nonrevealing. IMPRESSION: 1. Metastatic bladder cancer as above described. 2. Pembrolizumab (immunotherapy). 3. Probable cirrhosis of the liver (as per CAT scan and mild elevation of liver function tests) of unclear etiology. 4. Likely narcotic-induced ileus. 5. Chronic pain, though I think not related to the cancer as anatomically the cancer is not in locations that could cause pain. 6. Chronic fatigue that preceded his immunotherapy. Might be related to depression and/or his cirrhosis as well as narcotic affect. Antidepressant might be considered. RECOMMENDATIONS: 1. The patient should have further evaluation of his pain. This could take the form of pain consult as well as MRI of the pelvis. 2. If the patient is to remain on narcotics, a prokinetic drug like metoclopramide should be considered. 3. The patient should continue pembrolizumab as an outpatient.
[2019-11-20] MEDS: ACETAMINOPHEN 325 MG TAB PO PRN (20:27)
[2019-11-21] MEDS: PIPERACILLIN/TAZOBACTAM 3.375 GM in DEXTROSE 5% 100 ML IV SCH ×3 (01:56→18:20)
[2019-11-21] MEDS: HYDROmorphone INJ 0.5 MG/0.5 ML SYR IV PRN ×2 (03:51→22:28)
[2019-11-21] MEDS: HEPARIN 100 UNIT/ML 5ML FLUSH FLUSH PRN ×3 (06:11→23:09)
[2019-11-21 07:02] LABS: Hematocrit (blood only) 33.9 % (42-52); Hemoglobin 11.6 g/dL (14.0-18.0); Mean Corpuscular Hemoglobin 32.6 pg (25-34); Mean Corpuscular Hgb Conc 34.2 g/dL (32-36); Mean Corpuscular Volume 95.2 fL (80-100); Mean Platelet Volume 12.2 fL (7.4-10.4); Platelet Count 101 K/uL (130-400); RDW Coefficient of Variation 17.1 % (11.5-14.5); RDW Standard Deviation 58.7 fL (36.4-46.3); Red Blood Count 3.56 M/uL (4.7-6.1); White Blood Count 8.53 K/uL (4.8-10.8)
[2019-11-21 07:09] LABS: Albumin Globulin Ratio 1.1 (0.9-2); BUN Creatinine Ratio 16.4 (10-20); Bilirubin,Total 5.4 mg/dl (0.2-1); Calcium 8.5 mg/dl (8.5-10.1); Creatinine Clr Calc Pharmacy 56.4 ml/min; Est GFR (African American) 71.2; Est GFR (Non-African American) 61.4; Globulin 2.7 gm/dl (2.5-4.0); Potassium 3.8 mmol/L (3.5-5.1); Total Protein 5.7 gm/dl (6.4-8.2)
--- NOTE | 2019-11-21 09:11 | Surgery Progress Note ---
Date of Service November 21, 2019 Assessment & Plan (1) Malignant neoplasm of bladder metastatic to lung: abdomen benign seen with Dr. Beard start advancing diet Admission and Anticipated Discharge Date Admission Date: November 19, 2019 Subjective tolerating clears liquids, feeling better, some flatus Physical Exam Gastrointestinal (Abdomen): Inspection/Auscultation: abdomen not distended Percussion/Palpation: abdomen soft; abdomen nontender Results & Data ([facility]) Vital Signs (Past 12 Hours) Vital Signs Temp Pulse Resp BP BP Pulse Ox 11/21/19 07:17 37 C 93 H 20 115/71 92 11/20/19 23:45 37.1 C 86 18 98/61 L 91 PG Care Time/CCT Total # of Minutes Spent Total Time Spent with Patient: Total time spent is greater than 50% in coordination of care (as documented) at patient's floor/unit and/or counseling patient: Coding Level of Care Code 59072 Subseq Hosp Care Lvl 1 Diagnoses Malignant neoplasm of bladder metastatic to lung C67.9; C78.00
[2019-11-21] MEDS: UMECLIDINIUM BROMIDE 62.5MCG/BLISTER 7 PUFFS/INHALER INH SCH (09:14)
[2019-11-21] MEDS: METOPROLOL TARTRATE 50 MG TAB PO SCH ×2 (09:14→20:24)
[2019-11-21] MEDS: CALCIUM CARBONATE 1250MG TAB PO SCH (10:31)
--- NOTE | 2019-11-21 11:00 | Progress Notes ---
DATE: 11/21/2019 SUBJECTIVE: The patient states that he is passing more gas and has been ambulating in the hallway. His diet was advanced to full liquids today. He remains afebrile. He has not had a bowel movement however, and he continues on Dilaudid p.r.n. for fleeting pain. OBJECTIVE: On physical exam his abdomen is still quite distended and tympanitic, but not really tender. He does have what appears to be a cirrhotic liver on his MRI with a nodular contour. He does report that he has had at least 1 drink a day for the last 20 years until he developed his bladder cancer. IMPRESSION: The patient has ileus, probably from his opiates for pain. Recommended that the patient avoid opiates and only use them as needed and try to use acetaminophen up to 2 grams a day or a local heat if possible. He is to ambulate as much as possible and I will order some lab tests to look for other potential causes of liver cirrhosis.
[2019-11-21 12:01] LABS: Iron 44 mcg/dl (35-175); Total Iron Binding Capacity 161 mcg/dl (250-450)
[2019-11-21 12:16] LABS: Hepatitis B Surface Antigen Neg (Neg)
[2019-11-21 12:42] LABS: Hepatitis C IgG 13Yrs+Old_Rflx Neg (Neg)
--- NOTE | 2019-11-21 12:53 | Hospitalist Progress Note ---
Date of Service November 21, 2019 Assessment & Plan (1) Ileus: -Possible spontaneous bacterial peritonitis - pain and distension present, better controlled with dilaudid and mobility etiology ? TCC bladder, metastasis, gallbladder distension, recent nephrostomy tube placement and scar tissue forming adhesions, or liver involvement. -Consult GI, Dr. Guido - awaiting cultures post paracentesis. WBCs just barely above normal, neutrophils 5%. Today abdomen is not tender. Dr. Guido re commends minimizing opiates as much as possible, ambulate, heat and Tylenol for pain -Consult general surgery, Dr. Lebron -CT abdomen pelvis reviewed, shows mildly distended gallbladder, no calculi, bowel with minimally dilated proximal jejunal loops representing ileus or early/partial small bowel obstruction. Borderline colonic wall thickening, bilateral nephrostomy catheters with resolution of previously identified hydronephrosis, persistent asymmetric bladder wall thickening with infiltration of the perivesicular fat -advanced to full liquid per surgery -Continue IV Zosyn -LR 125 mL/hr for now -Continue simethicone (2) Transitional cell carcinoma of bladder: -Following with oncology, Dr. Boucher at [facility] -scheduled for Keytruda at [facility] within next week or so. -Consult oncology -Started Keytruda, given initial dose during hospital stay at [facility] between 10/28 to 11/02 when bilateral nephrostomy tubes were placed -CT abdomen showing resolvent of hydronephrosis which had previously been present -consulted urology, Dr. Bueno - no urological needs at this time (3) Liver metastases: -Noted cirrhotic morphology with increasing low volume ascites on CT (4) Elevated LFTs: -Elevation of LFTs - transaminases improving -Tbili=5.4 -Keytruda dose x 1 may have elevated numbers (5) Left upper lobe pulmonary nodule: -Patient with multiple pulmonary nodules, left upper lobe, right lower lobe consistent with progressive metastatic disease -Per nursing, patient desaturates to the 70s when off oxygen. No labored breathing or sob. May need two step before going home (6) COPD with emphysema: -Continue home inhalers, albuterol, Spiriva (7) Hyperlipidemia: -History of such, not on statin therapy (8) Depression: (9) Anxiety: -May continue clonazepam 0.5 mg QPM (10) Cirrhosis: New finding on CT. Compensated at this time. GI to place orders for further workup as to etiology (11) Thrombocytopenia: Unclear etiology - Zosyn? Acute illness? Will continue to trend. Patient does have cirrhosis as above but thus far his platelets have been wnl until this hospitalization (12) DVT prophylaxis: - teds, scds, heparin subq CODE: Full Dispo: From home, likely to remain in the hospital x 1-2 days Admission and Anticipated Discharge Date Admission Date: November 19, 2019 Subjective Mr Vielka's pain is under better control today. He has no complaints. He has not had a bowel movement in about 2 days ROS Constitutional: no chills, aches, sweats or fever Respiratory: no sob,cough, sputum, or wheezing Cardiac: no chest pain, palpitations, edema, orthopnea or lightheadedness GI: no abdominal pain, nausea, vomiting, diarrhea or constipation : no dysuria or hesitancy Extremities: no joint pain or weakness Skin: no rash All other systems reviewed and negative Physical Exam Physical Exam: General: no distress Eyes: normal inspection, PERLL Respiratory: chest non tender, clear to auscultation, normal breath sounds, no respiratory distress, no accessory muscle use Cardiac: regular rate and rhythm, no rub or gallop, no murmur, no edema, no jvd GI/: active bowel sounds, no abd pain or tenderness, soft, distended Extremities: normal range of motion, normal strength, non tender Neuro/Psych: alert and oriented x 3, normal mood and affect Skin: normal color, dry Results & Data Results & Data ([facility]) Vital Signs (Past 12 Hours) Vital Signs Temp Pulse Resp BP Pulse Ox 11/21/19 07:17 37 C 93 H 20 115/71 92 PG Care Time/CCT Total # of Minutes Spent Total Time Spent with Patient: Total time spent is greater than 50% in coordination of care (as documented) at patient's floor/unit and/or counseling patient: Coding Level of Care Code 63039 Subseq Hosp Care Lvl 3 Diagnoses Ileus K56.7 Transitional cell carcinoma of bladder C67.9 Liver metastases C78.7 Elevated LFTs R79.89 Left upper lobe pulmonary nodule R91.1 COPD with emphysema J43.9 Hyperlipidemia E78.5 Depression F32.9 Anxiety F41.9 Cirrhosis K74.60 Thrombocytopenia D69.6 DVT prophylaxis Z29.9
[2019-11-21] MEDS ORDERED: SOD PHOSPHATE/SOD BIPHOSPHATE ENEMA 132 ML BTL PR STA (17:21)
--- NOTE | 2019-11-21 17:57 | XRay Report ---
XR chest 2V PA/lateral HISTORY: desaturation COMPARISON: Chest 08/24/2019. Trace right pleural effusion, unchanged. Progressive right basilar consolidation is noted. No evidenc e for pulmonary edema. The heart is normal in size. Left jugular Port-A-Cath terminates in the SVC. B ilateral pulmonary nodules consistent with the patient's known metastatic disease are again noted. IMPRESSION: 1. Progressive right basilar consolidation. This could represent atelectasis or developing pneumonia. 2. Trace right pleural effusion, unchanged. 3. Multiple bilateral pulmonary nodules are again noted consistent the patient's known metastatic dis ease. ACT 112: Negative or not required by law. Electronically signed by: Chet Lira M.D. 11/21/2019 5:55 PM
[2019-11-21 19:25] LABS: INR 1.5 (0.9-1.1); Prothrombin Time 15.3 Seconds (9.0-12.0)
[2019-11-21] MEDS: clonazePAM 0.5 MG TAB PO SCH (20:27)
[2019-11-21] MEDS ORDERED: HEPARIN SOD 5,000 UNIT/0.5 ML VIAL SQ SCH (21:00)
[2019-11-22] MEDS: PIPERACILLIN/TAZOBACTAM 3.375 GM in DEXTROSE 5% 100 ML IV SCH ×2 (01:18→10:44)
[2019-11-22] MEDS: HEPARIN 100 UNIT/ML 5ML FLUSH FLUSH PRN ×2 (05:12→14:27)
[2019-11-22 06:46] LABS: Hematocrit (blood only) 35.6 % (42-52); Hemoglobin 12.1 g/dL (14.0-18.0); Mean Corpuscular Hemoglobin 32.3 pg (25-34); Mean Corpuscular Volume 94.9 fL (80-100); Mean Platelet Volume 12.3 fL (7.4-10.4); Platelet Count 99 K/uL (130-400); RDW Coefficient of Variation 17.3 % (11.5-14.5); RDW Standard Deviation 59.4 fL (36.4-46.3); Red Blood Count 3.75 M/uL (4.7-6.1); White Blood Count 8.35 K/uL (4.8-10.8)
[2019-11-22 06:50] LABS: Albumin Globulin Ratio 0.9 (0.9-2); Albumin Level 2.7 gm/dl (3.4-5.0); BUN Creatinine Ratio 10.4 (10-20); Bilirubin,Total 5.6 mg/dl (0.2-1); Calcium 8.3 mg/dl (8.5-10.1); Creatinine Clr Calc Pharmacy 60.4 ml/min; Est GFR (African American) 77.2; Est GFR (Non-African American) 66.6; Potassium 3.5 mmol/L (3.5-5.1); Total Protein 5.7 gm/dl (6.4-8.2)
[2019-11-22 08:02] LABS: INR 1.5 (0.9-1.1); Prothrombin Time 15.3 Seconds (9.0-12.0)
--- NOTE | 2019-11-22 08:38 | Surgery Progress Note ---
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 Beard Admission and Anticipated Discharge Date Admission Date: November 19, 2019 Subjective Patient states he feels "okay" today. He says he has a lot of gas. Was given an enema yesterday and was able to move his bowels. He denies any nausea/vomiting. He also has been taking dilaudid for leg pain with relief. 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
[2019-11-22] MEDS ORDERED: POLYETHYLENE (MIRALAX) 17 GM PACK PO SCH (09:00)
[2019-11-22] MEDS: CALCIUM CARBONATE 1250MG TAB PO SCH (09:26)
[2019-11-22] MEDS: UMECLIDINIUM BROMIDE 62.5MCG/BLISTER 7 PUFFS/INHALER INH SCH (09:26)
[2019-11-22] MEDS: METOPROLOL TARTRATE 50 MG TAB PO SCH (09:26)
[2019-11-22] MEDS: ACETAMINOPHEN 325 MG TAB PO PRN ×2 (09:31→13:45)
--- NOTE | 2019-11-22 10:29 | Progress Notes ---
DATE: 11/22/2019 SUBJECTIVE: The patient reports that he continues to have muscle spasms, particularly in the hamstring area of his right thigh. He did have a bowel movement today, although on physical exam, his abdomen is still quite distended and tympanitic. Main complaint is the muscle spasms which caused pain requiring opiates that decreases intestinal motility. I have recommended he consider Movantik 12.5 mg a day to start with as it is indicated for opiate-induced constipation. He also might consider a muscle relaxant such as baclofen or Flexeril. As far as his liver, his liver tests continue to be abnormal with a bilirubin of 5.6, AST 150, ALT 144, alkaline phosphatase 120, albumin is low at 2.7. INR 1.5. The patient most likely has underlying alcohol-induced cirrhosis, but I did send off some lab work, his hepatitis B and C serologies are negative. His alpha 1 antitrypsin level and VIBHA are pending. His iron is 44. Iron binding 161 about 25% saturation, not consistent with hemochromatosis. IMPRESSION: The patient has underlying liver disease which we can follow as an outpatient. Recommend considering a muscle relaxant such as Flexeril or baclofen, which may reduce his opiate needs which would hopefully improve his intestinal motility. Obviously, his underlying bladder cancer with metastatic disease is a primary concern.
[2019-11-22] MEDS ORDERED: LIDOCAINE 5% 1 PATCH TD SCH (11:00)
[2019-11-22] MEDS ORDERED: BACLOFEN 10 MG TAB PO PRN (11:01)
--- NOTE | 2019-11-22 14:48 | Discharge Summary ---
Date of Service November 22, 2019 Admission HPI Per Admitting Provider This is a 64 yo M with PMHx of metastatic bladder cancer originally diagnosed in March 2019, metastases involves numerous pulmonary nodules and liver started on Keytruda during his most recent admission at [place], COPD with emphysema, asthma, HLD, anxiety, depression who presents with increased abdominal pain. His is present with him at bedside. He was recently admitted at [facility] [place] [place] from 10/28 to 11/02 where he had bilateral nephrostomy tube placed on 10/28 and has follow up with [facility] [place] [place] urology in December. Both sides are draining well, the left side has a slight pink tinge to the urine draining out of it since placement. He had visiting nurses coming to the home twice a week, is primarily changing dressings around the site at this point in time. He denies any purulent material draining or blood draining from the tubes or around the insertion site. During that admission he was started on Keytruda, per orders of Dr. Mihai Boucher with oncology. He plans to follow with oncology here at [facility] for further doses of Keytruda, next infusion scheduled in ~1.5 weeks. Patient reports that his abdominal pain has worsened over the last few days, poor appetite, gas pains, distention, nausea but no vomiting, and slightly constipated with small bowel movement occurring this morning. When he presented to the ER his pain was rated 10/10, improved now after getting IV pain medications. He took 3 Dulcolax tablets last evening because he felt abdominal discomfort. He denies any fevers, chills or sweats. He reports he has not had any significant weight loss recently, weighs approximately 147 pounds, with normal weight of 155. He has had a poor appetite over the last few days as well. Currently his mouth is very dry and requesting something to eat or drink. CT of the abdomen/pelvis was found to have a ileus versus partial SBO. The patient has been started on IV Zosyn. GI consulted for mildly distended gallbladder and ileus versus partial SBO, where MRCP was recommended. LFTs are elevated on admission, total bili is = 3.6. Patient is afebrile without leukocytosis. Principal Diagnosis Ileus Discharge Exam Constitutional WD/WN, vitals as above Respiratory normal respiratory effort, lungs clear to auscultation Cardiovascular RRR, no murmur, no edema Gastrointestinal (Abdomen) Inspection/Auscultation: abdomen normal to inspection, + abdomen distended and normal bowel sounds Percussion/Palpation: abdomen nontender Musculoskeletal no cyanosis or clubbing, extremities motor strength 5/5 Skin no rashes, warm and dry Neurologic moves all extremities and awake Psychiatric A+Ox3, euthymic affect Discharge Data Allergies Allergy/AdvReac Type Severity Reaction Status Date / Time cat dander Allergy Mild watery eyes Unverified 11/19/19 11:07 No Known Drug Allergies Allergy Verified 11/19/19 11:07 Consultations 11/19/19 15:15 ED Decision to Admit Stat 11/19/19 16:19 Consult General Surgery Routine 11/19/19 17:14 Consult Case Management - Discharge Planning Routine Consult Gastroenterology Routine Consult Oncology Routine Consult Urology Routine 11/22/19 13:28 Burn CD for patient Stat Procedures Performed Operation Date: 11/20/19 11:30 <No data on this case meets the specified criteria> Ordered Studies 11/19/19 11:38 CT abd pelvis IV con only Stat 11/19/19 16:13 MR MRCP Urgent 11/20/19 10:00 US paracentesis abd w/image Routine Hospital Course (1) Ileus: -Bacterial peritonitis ruled out - no growth on peritoneal fluid culture, WBCs just barely above normal, neutrophils 5% -Consult GI, Dr. Guido - recommends minimizing opiates as much as possible, ambulate, heat and Tylenol for pain, Movantik for home, daily miralax -Consulted general surgery, Dr. Lebron - no indication for surgery -CT abdomen pelvis reviewed, shows mildly distended gallbladder, no calculi, bowel with minimally dilated proximal jejunal loops representing ileus or early/partial small bowel obstruction. Borderline colonic wall thickening, bilateral nephrostomy catheters with resolution of previously identified hydronephrosis, persistent asymmetric bladder wall thickening with infiltration of the perivesicular fat -advanced to low fiber and tolerating -Will discontinue IV Zosyn as there is no sign of peritonitis/ SBP (2) Transitional cell carcinoma of bladder: -Following with oncology, Dr. Boucher at [facility] [place] [place] -scheduled for Keytruda at [facility] within next week or so. -Consulted oncology -Started Keytruda, given initial dose during hospital stay at [facility] [place] [place] between 10/28 to 11/02 when bilateral nephrostomy tubes were placed -CT abdomen showing resolved hydronephrosis which had previously been present -consulted urology, Dr. Bueno - no urological needs at this time (3) Liver metastases: -Noted cirrhotic morphology with increasing low volume ascites on CT (4) Elevated LFTs: -Elevation of LFTs - transaminases holding around 150 and 140 AST/ALT respectively - INR elevated at 1.5 -Tbili=5.6 - patient to follow with Dr. Guido for cirrhosis (5) Left upper lobe pulmonary nodule: -Patient with multiple pulmonary nodules, left upper lobe, right lower lobe consistent with progressive metastatic disease -Per nursing, patient desaturates to the 70s when off oxygen. No labored breathing or sob. - CXR with progressive right basilar consolidation. This could represent atelectasis or developing pneumonia. Patient has not had leukocytosis, fever or cough so will hold off on treating for a pneumonia. I did educate him that if any of these symptoms were to occur he should call his doctor. He will go home with oxygen - 2L at rest, 3L with ambulation (6) COPD with emphysema: -Continue home inhalers, albuterol, Spiriva - patient sees Dr. Rosado and has appt scheduled 1 month (7) Hyperlipidemia: -History of such, not on statin therapy (8) Depression: (9) Anxiety: -May continue clonazepam 0.5 mg QPM (10) Cirrhosis: New finding on CT. Compensated at this time. GI to place orders for further workup as to etiology (11) Thrombocytopenia: Unclear etiology - Zosyn? Acute illness? Will continue to trend. Patient does have cirrhosis as above but thus far his platelets have been wnl until this hospitalization Follow up with pcp and GI (12) Irregular heart rhythm: EKG obtained showing NSR with PVCs and PACs. Patient reports he recently wore a Holter monitor after he was found to be in Afib at [place] for his nephrostomy tubes. He is scheduled to follow up with Dr. Hartmann in the near future. (13) DVT prophylaxis: - teds, scds, heparin subq CODE: Full Dispo: From home, likely to remain in the hospital x 1-2 days Total Time Total Time Spent Total Time Spent (In Minutes): greater than 30 minutes Discharge Plan Discharge Items Patient Disposition: Home - Home Health Services Reason For Visit: ileus, gallbladder distension, metastatic bladder Discharge Diagnosis: Ileus Activity: Resume your previous activity Driving/Machine Use: avoid driving when using oxycodone or baclofen Non-emergency contact: Primary Care Provider Call non-emergency contact if: you have any medication questions and your symptoms worsen Follow-up/Referrals: Clifford Guido [Physician] - (Follow up in one week. Hospital social secretary will be contacting you with appt date and time.) Reinier Flores [Primary Care Provider] - (Follow up in one week. Hospital social secretary will be in contact with you for date and time of appt.) Diet: Low Fiber Addtl Attending Provider Instructions: (1) Ileus: Your abdominal pain was due to an ileus which is where the intestines have an area that are not able to do its normal propulsive movements. The likely cause of this is probably a combination of your cancer metastasis and narcotic usage. You were evaluated for possible spontaneous bacterial peritonitis (an infection involving ascites) but this was ruled out. The culture of ascites removed during your paracentesis was negative for bacterial growth. You were seen by Dr. Guido and LOVE Zuñiga from gastroenterology and Dr. Lebron and Dr. Beard and Carolee Rucker PA-C, Ovidio Bah PA-C and Liz Nicholson PA-C from surgery. - try to minimize opiates as much as possible, ambulate, and use heat and Tylenol for pain. As we discussed, you should use 2000 mg or less of Tylenol a day to prevent furthering liver damage. You should avoid NSAIDs (non steroidal anti inflammatory drugs) such as ibuprofen and naproxen - maintain a low fiber diet, please see attached information - Take Miralax daily to maintain at least one bowel movement per day - If you are having a difficult time balancing symptoms and pain management as you are going through your cancer treatments, please ask your oncologist for a palliative care referral for assistance. In addition to symptoms management, they can also be helpful in establishing goals of your care. (2) Transitional cell carcinoma of bladder: Oncology was consulted to see you while you were here and you were seen by Dr. Bustamante. Please keep your appointment for your next cancer treatment and follow up with your oncologist. (3) Cirrhosis: As seen on your CT scan. It is unclear at this point what has caused this scarring of your liver. Please follow up with Dr. Guido in about a week to further discuss your lab work and ongoing care. Please refer to attachment for further discharge instructions. - pain management as discussed above (4) Left upper lobe pulmonary nodule, COPD: You were found to have low oxygen saturations while in the hospital. A test of your oxygen saturations by respiratory therapy showed that you will need to have 2 liters of oxygen at rest, 3 liters of oxygen with exertion. You chest X-ray showed atelectasis which is when the small airways of the lung are not inflating properly. It is unlikely that this is a forming into a pneumonia given your normal white blood cell count, no fever and lack of productive cough. If you develop a fever or productive cough please tell your primary care provider right away. - continue to use your incentive spirometer 10 times per hour while awake. - You will go home with oxygen. You should wear 2 liters at rest and 3 liters with exertion - keep your next appointment with your eyelet machine operator in a month (5) Thrombocytopenia (low platelets), elevated INR (slow clotting time): Your platelets were low. This could be from your cirrhosis but the platelets did not start to decrease until you entered the hospital so I am suspicious it was one of the medications you were receiving here, the antibiotic as the most likely culprit which is now discontinued. Your INR was also elevated which is an indicator of slow blood clotting time. This is most likely due to cirrhosis. -Please ask your primary care provider to repeat these levels at your next appointment in a week. (6) Muscle spasm It is common for those with cirrhosis to have muscle cramps - You will go home with a prescription for Baclofen. You can take this three times per day as needed. This medication can make you sleepy and you may want to avoid taking it at the same time as your narcotics to avoid oversedation. - There are some supplements which have shown some effect on helping with these types of cramps that you can try such as magnesium (400 mg per day), branched- chain amino acids (4 g granules three times daily), taurine (3 g once daily) , and vitamin E (200 mg three times daily). These can all be purchased over the counter (7) Nephrostomy tubes Please follow with your urologist outpatient per their instruction Pending Studies at Discharge: No Stand-Alone Forms: My [facility] [employer], Smoking Cessation Medications and DC Order Prescriptions: New baclofen 10 mg Tablet 10 mg PO TID PRN (Reason: muscle spasm) 30 Days Qty: 90 RF: 1 polyethylene glycol 3350 [Miralax] 17 gram Powder In Packet 17 g PO DAILY PRN (Reason: Constipation) 30 Days RF: 0 Movantik 12.5 mg tablet 12.5 mg PO DAILY Qty: 30 RF: 0 Continued oxycodone-acetaminophen 5-325 mg tablet 1 tab PO Q8H PRN (Reason: pain) Qty: 15 RF: 0 clonazepam [Klonopin] 0.5 mg tablet 0.5 mg PO QPM RF: 0 Spiriva Respimat 2.5 mcg/actuation mist 2 puffs INH BID Qty: 4 RF: 3 albuterol sulfate 90 mcg/actuation Hfa Aerosol Inhaler 2 puff INHALATION 6XD PRN (Reason: ALLERGIES INDUCED ASTHMA) RF: 0 levocetirizine [24HR Allergy Relief] 5 mg tablet 5 mg PO DAILY PRN (Reason: allergy symptoms) RF: 0 calcium carbonate [Calcium 600] 600 mg calcium (1,500 mg) Tablet 600 mg PO QAM RF: 0 metoprolol tartrate 50 mg tablet 50 mg PO BID RF: 0 ibuprofen 200 mg Tablet 400 mg PO Q6H PRN (Reason: Pain) RF: 0 Discharge Orders: Discharge Order (Routine); Ordered 11/22/19 Ordered By: Nadia Hernandez/Other Patient Handouts: Low-Fiber Diet, Discharge Instructions for Cirrhosis of the Liver Admission Data Admit Date/Time: 11/19/19 16:47 Attending Provider: Avery Dunbar Admit Provider: Nazario Gonzalez Primary Care Provider: Reinier Flores Other Providers: Nazario Gonzalez ; Mariano Bueno ; Henrry Lebron ; Jamel Perales V. ; [facility] ; Clifford Guido Other Interventions: Discharge Summary Assessment (RN) Last Done: 11/22/19 15:02 Supervising Physician Co-Signing Physician Notes Patient seen and examined on the day of discharge. I agree with the discharge summary by Nadia ALEMAN. I have reviewed the chart including labs, imaging and plans for discharge. patient feeling better, moving his bowels answered questions from his and patient will follow up with his oncologist to discuss use of Keytruda given his elevated bilirubin - Elevated LFT CT shows a cirrhotic appearance to liver, this is new finding bilirubin is elevated, INR slightly elevated unclear what caused the acute change in LFT gastroenterology consulted, he can follow up with Dr Guido - Ileus: resolved, having BM recommend low fiber diet, stay well hydrated use Miralax daily to keep bowels moving GI recommended Movantik, called his pharmacy, it is non-formulary - transitional cell carcinoma of bladder with lung mets recently started on Keytruda follow up closely with oncologist to discussed continued use could elevated LFT be due to Keytruda? listed as adverse effect Coding Level of Care Code D/C Day Management >30 mins Diagnoses Ileus K56.7 Transitional cell carcinoma of bladder C67.9 Liver metastases C78.7 Elevated LFTs R79.89 Left upper lobe pulmonary nodule R91.1 COPD with emphysema J43.9 Hyperlipidemia E78.5 Depression F32.9 Anxiety F41.9 Cirrhosis K74.60 Thrombocytopenia D69.6 Irregular heart rhythm I49.9 DVT prophylaxis Z29.9
--- NOTE | 2019-11-23 06:51 | Electrocardiogram Report ---
Test Reason : Blood Pressure : / mmHG Vent. Rate : 082 BPM Atrial Rate : 082 BPM P-R Int : 108 ms QRS Dur : 078 ms QT Int : 384 ms P-R-T Axes : 065 033 024 degrees QTc Int : 448 ms Sinus rhythm with short NV with occasional Premature ventricular complexes and Premature atrial compl exes Abnormal ECG When compared with ECG of 22-APR-2019 13:52, Premature ventricular complexes are now Present Premature atrial complexes are now Present QRS voltage has decreased Confirmed by Victor Manuel Hill ([id number]) on 11/23/2019 6:51:09 AM Referred By: REFERRED SELF Confirmed By:Victor Manuel Hill
[2019-11-25 14:26] LABS: Alpha 1 Antitrypsin 157 mg/dL (83-199); Anti Nuclear Antibody Screen POSITIVE (NEGATIVE)
[2019-11-27 09:45] LABS: ANA Pattern 2 Cytoplasmic
== END 2019-11-22 16:23 | disposition home health service (06) | DRG 389 ==
LOC: ED 10:23 → 3N 16:32 → SUATTDRO 16:47

== ENCOUNTER 2019-11-28 16:54 | Inpatient (IN) ==
--- NOTE | 2019-11-28 18:16 | Emergency Department Note ---
History of Present Illness General Chief complaint: Altered Mental Status Stated complaint: ALTERNED MENTAL STATUS Time Seen by Provider: 11/28/19 17:56 Source: patient and family Mode of arrival: ambulatory Limitations: altered mental status History of Present Illness Provider complaint: Altered mental status Onset (ago): hour(s) Maximum Pain Intensity: 7 Associated symptoms: + confusion, + loss of appetite, + malaise and + nausea/vomiting Treatments prior to arrival: none This is a 64-year-old male presents emergency department with family due to concern for altered mental status. Patient is currently being treated for metastatic bladder cancer, was recently hospitalized and found to have liver dysfunction/cirrhosis in addition. She states he did see his GI doctor, Dr. Guido yesterday and was prescribed prednisone. She states this morning patient seemed confused, even prior to taking any medications including starting the prednisone. Patient does routinely have tramadol and baclofen prescribed for him as well, however the confusion started first thing this morning, and he has not taken either of those medications today. On arrival here patient also states he began feeling more nauseated. Patient complains of abdominal cramping which the states has been ongoing and is not new. They both deny any fevers chills, cough or cold symptoms, chest pain or trouble breathing. Patient states he feels as though he has significant acid reflux symptoms at this time. states during last admission he underwent significant abdominal imaging due to the new liver dysfunction that was seen. She states the confusion is slightly improved at this time, however he is still not normal. Pt seen during a time of high acuity and national emergency pandemic while wearing PPE. Home Medications Home Medications Medication Instructions Recorded Confirmed Type clonazepam 0.5 mg tablet 0.5 mg PO QPM 04/08/19 11/28/19 History albuterol sulfate 2 puff INHALATION 6XD PRN 04/20/19 11/28/19 History levocetirizine [24HR Allergy 5 mg PO DAILY PRN 05/21/19 11/28/19 History Relief] tiotropium bromide 2.5 2 puffs INH BID #4 gm 08/27/19 11/28/19 Rx mcg/actuation mist for inhalation calcium carbonate [Calcium 600] 600 mg PO QAM 11/19/19 11/28/19 History metoprolol tartrate 50 mg PO BID 11/19/19 11/28/19 History baclofen 10 mg PO TID PRN 30 Days #90 tab 11/22/19 11/28/19 Rx polyethylene glycol 3350 [Miralax] 17 g PO DAILY PRN 30 Days ea 11/22/19 11/28/19 Rx ondansetron HCl 4 mg PO BID PRN 11/28/19 11/28/19 History prednisone 0 mg PO .DAILY/UD 11/28/19 11/28/19 History spironolactone 50 mg PO DAILY 11/28/19 11/28/19 History tramadol 50 mg PO Q6H PRN 11/28/19 11/28/19 History Allergies Allergy/AdvReac Type Severity Reaction Status Date / Time cat dander Allergy Mild watery eyes Unverified 11/19/19 11:07 No Known Drug Allergies Allergy Verified 11/19/19 11:07 Past Med/Surg History Medical History (Updated 11/29/19 @ 16:47 by Sanam Brooks DO) Anxiety Asthma ALLERGY INDUCED ASTHMA COPD with emphysema Recently started on Spiriva by pulm Depression Environmental allergies CAT AND DOG DANDER Hyperlipidemia borderline Left upper lobe pulmonary nodule Had recent biopsy that showed metastatic disease from bladder cancer. Transitional cell carcinoma of bladder Urethral stricture Surgical History History of colonoscopy History of hernia surgery History of sinus surgery History of surgical removal of ganglion cyst Hx of wisdom tooth extraction Port-A-Cath in place (06/08/19) Insertion of Mediport Internal Jugular Left with Fluoroscopy Dr. 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 and A total of 10 systems reviewed and were otherwise negative Physical Exam Vital Signs Vital Signs - 24 hr 11/28/19 16:56 11/28/19 17:39 11/28/19 18:00 Temperature 37.1 C Temperature Source Oral Pulse Rate 78 131 H 128 H Pulse Rate from SpO2 Sensor 131 H 129 H Pulse Rhythm Regular Pulse Strength Normal Respiratory Rate 16 26 H 19 Respiratory Effort / Characteristics Non-Labored Respiratory Depth Normal Respiratory Pattern Regular Blood Pressure 109/72 133/82 132/76 Blood Pressure [Left Arm] Blood Pressure Mean 84 102 101 Blood Pressure Mean [Left Arm] Blood Pressure Position Sitting Pulse Oximetry 98 99 98 Oxygen Delivery Method Room Air Sepsis Recent Fever Within 48 Hours No Sepsis New/Unexplained Change in Mental Status N/A Sepsis Action Taken by Nursing No Action Required 11/28/19 18:30 11/28/19 18:54 11/28/19 20:00 Temperature Temperature Source Pulse Rate 118 H 114 H Pulse Rate from SpO2 Sensor 116 H 78 Pulse Rhythm Pulse Strength Respiratory Rate 16 26 H Respiratory Effort / Characteristics Respiratory Depth Respiratory Pattern Blood Pressure 147/80 H 128/69 Blood Pressure [Left Arm] 130/74 Blood Pressure Mean 110 81 Blood Pressure Mean [Left Arm] 92 Blood Pressure Position Pulse Oximetry 97 91 Oxygen Delivery Method Sepsis Recent Fever Within 48 Hours Sepsis New/Unexplained Change in Mental Status Sepsis Action Taken by Nursing 11/28/19 22:00 Temperature Temperature Source Pulse Rate Pulse Rate from SpO2 Sensor Pulse Rhythm Pulse Strength Respiratory Rate Respiratory Effort / Characteristics Respiratory Depth Respiratory Pattern Blood Pressure Blood Pressure [Left Arm] 127/73 Blood Pressure Mean Blood Pressure Mean [Left Arm] 91 Blood Pressure Position Pulse Oximetry Oxygen Delivery Method Sepsis Recent Fever Within 48 Hours Sepsis New/Unexplained Change in Mental Status Sepsis Action Taken by Nursing GENERAL: alert, ill appearing, well nourished, mild distress, non-toxic, obvious jaundice EYE EXAM: normal conjunctiva, PERRL and EOM's grossly intact, scleral icterus OROPHARYNX: no exudate, no erythema, lips, buccal mucosa, and tongue normal and mucous membranes are moist NECK: supple, no nuchal rigidity, no adenopathy, non-tender LUNGS: Clear to auscultation. Normal chest wall mechanics, no w/r/r HEART: no murmurs, S1 normal and S2 normal ABDOMEN: abdomen soft, non-tender, normo-active bowel sounds, no masses, no rebound or guarding. BACK: Back is symmetrical on inspection and there is no deformity, no midline tenderness, no CVA tenderness. SKIN: no rashes and no bruising . No petechiae UPPER EXTREMITIES: upper extremities are grossly normal. FROM, nml pulses b/l. LOWER EXTREMITIES: No pitting edema. FROM, nml pulses b/l. NEURO EXAM: Normal sensorium, cranial nerves II-XII grossly intact, normal speech, no gross weakness of arms, no gross weakness of legs. Gross sensation intact. Course Course 2019: Pt and family updated on results. 2110: Discussed with PAPI Matta. Feels patient should be transferred to a tertiary care facility. 2129: Updated patient and family at bedside. 2249: Discussed with Dr. Brar, internal medicine, and Dr. Ruiz of GI at [facility]. I do not feel the patient needs transferred at this time and is a better candidate for palliative care which could be done here. 2256: Discussed again with PAPI Matta. Agreeable with plan for admission here given likely need for palliative evaluation. 2299: Discussed with Dr. Girard. Administered Medications Cetirizine HCl (Cetirizine Hcl 10 Mg Tablet) 5 mg PO DAILY PRN PRN Reason: allergy symptoms Stop: 12/29/19 03:46 Last Admin: 11/29/19 08:32 Dose: 5 mg Documented by: [id number] Enoxaparin Sodium (Enoxaparin Inj 40 Mg/0.4 Ml Syr) 40 mg SQ Q24H RAJAN Stop: 12/29/19 08:59 Last Admin: 11/29/19 08:34 Dose: 40 mg Documented by: [id number] Sodium Chloride (Nss 1000ml) 1,000 mls @ 80 mls/hr IV .[id number] RAJAN Stop: 12/28/19 18:29 Last Admin: 11/29/19 09:23 Dose: 80 mls/hr Documented by: [id number] Infusion: 11/29/19 07:25 Dose: 80 mls/hr Documented by: [id number] Admin: 11/28/19 18:55 Dose: 80 mls/hr Documented by: [id number] Piperacillin Sod/Tazobactam (Sod 3.375 gm/ Dextrose) 115 mls @ 28.75 mls/hr IV Q8H [facility]; Protocol Stop: 12/01/19 09:59 Last Infusion: 11/29/19 15:48 Dose: 0 mls/hr Documented by: [id number] Admin: 11/29/19 11:40 Dose: 28.8 mls/hr Documented by: [id number] Metoprolol Tartrate (Metoprolol Tartrate 50 Mg Tab) 50 mg PO BID [facility] Stop: 12/29/19 08:59 Last Admin: 11/29/19 08:33 Dose: 50 mg Documented by: [id number] Multivitamins/Minerals (Calcium 600mg + Vit D 400 Iu Tab) 1 tab PO QAM [facility] Stop: 12/29/19 08:59 Last Admin: 11/29/19 08:33 Dose: 1 tab Documented by: [id number] Prednisone (Prednisone 20 Mg Tab) 70 mg PO QAM [facility] Stop: 12/29/19 08:59 Last Admin: 11/29/19 08:32 Dose: 70 mg Documented by: [id number] Spironolactone (Spironolactone 25 Mg Tab) 50 mg PO DAILY [facility] Stop: 12/29/19 08:59 Last Admin: 11/29/19 08:33 Dose: 50 mg Documented by: [id number] Umeclidinium [place] (Umeclidinium [place] 62.5mcg/Blister 7 Puffs/Inhaler) 1 puffs INH DAILY [facility] Stop: 12/29/19 08:59 Last Admin: 11/29/19 08:30 Dose: 1 puffs Documented by: [id number] Discontinued Medications Al Hydrox/Mg Hydrox/Simethicone (Aluminum/Magnesium Susp 30 Ml Udc) 15 ml PO NOW STA Stop: 11/28/19 23:11 Last Admin: 11/29/19 00:51 Dose: 15 ml Documented by: [id number] Fentanyl Citrate (Fentanyl Citrate 100 Mcg/2 Ml Vial) 50 mcg IV NOW STA Stop: 11/28/19 19:09 Last Admin: 11/28/19 19:17 Dose: 50 mcg Documented by: [id number] Fentanyl Citrate (Fentanyl Citrate 100 Mcg/2 Ml Vial) 50 mcg IV NOW STA Stop: 11/28/19 20:19 Last Admin: 11/28/19 21:28 Dose: 50 mcg Documented by: [id number] Fentanyl Citrate (Fentanyl Citrate 100 Mcg/2 Ml Vial) 50 mcg IV NOW STA Stop: 11/28/19 22:41 Last Admin: 11/29/19 06:14 Dose: Not Given Documented by: [id number] Hydromorphone HCl (Hydromorphone Inj 0.5 Mg/0.5 Ml Syr) 0.5 mg IV Q15M PRN PRN Reason: Pain Stop: 12/12/19 23:07 Last Admin: 11/29/19 00:51 Dose: 0.5 mg Documented by: [id number] Pantoprazole Sodium 40 mg/ (Syringe) 10 mls @ 5 mls/min IV NOW ONE Stop: 11/28/19 18:22 Last Admin: 11/28/19 18:55 Dose: 5 mls/min Documented by: [id number] Piperacillin Sod/Tazobactam (Sod 4.5 gm/ Dextrose) 120 mls @ 200 mls/hr IV NOW ONE; Protocol Stop: 11/29/19 04:05 Last Infusion: 11/29/19 04:50 Dose: 0 mls/hr Documented by: [id number] Admin: 11/29/19 04:10 Dose: 200 mls/hr Documented by: [id number] Ondansetron HCl (Ondansetron Inj 2 Mg/Ml 2 Ml Vial) 4 mg IV NOW STA Stop: 11/28/19 18:24 Last Admin: 11/28/19 18:55 Dose: 4 mg Documented by: [id number] Medical Decision Making Differential Diagnosis Differential diagnoses includes but is not limited to toxic, metabolic, infectious, traumatic, cardiac, neurologic, hematologic, psychiatric and inflammatory etiologies. Medical Records Attestation: I reviewed the patient's medical records. Home Medications Current Medication List: was personally reviewed by me Laboratory Data Attestation: I reviewed the patient's lab results. Result diagrams: 11/29/19 08:18 11/29/19 08:18 Lab Results 11/28/19 11/28/19 11/28/19 Range/Units 19:05 19:05 19:05 WBC 9.52 (4.8-10.8) K/uL RBC 3.85 L (4.7-6.1) M/uL Hgb 12.8 L (14.0-18.0) g/dL Hct 35.8 L (42-52) % MCV 93.0 (80-100) fL MCH 33.2 (25-34) pg MCHC 35.8 (32-36) g/dL RDW Std Deviation 64.8 H (36.4-46.3) fL RDW Coeff of Lisa 20.0 H (11.5-14.5) % Plt Count 136 (130-400) K/uL MPV 12.3 H (7.4-10.4) fL Immature Gran % (Auto) 0.3 % Neut % (Auto) 87.5 % Lymph % (Auto) 5.7 % [place] % (Auto) 6.5 % Eos % (Auto) 0.0 % Baso % (Auto) 0.0 % Neut # (Auto) 8.33 H (1.4-6.5) K/uL Lymph # (Auto) 0.54 L (1.2-3.4) K/uL [place] # (Auto) 0.62 H (0.11-0.59) K/uL Eos # (Auto) 0.00 (0-0.5) K/uL Baso # (Auto) 0.00 (0-0.2) K/uL Immature Gran # (Auto) 0.03 H (0.00-0.02) K/uL Anisocytosis Present Tear Drop Cells 1+ PT (9.0-12.0) Seconds INR (0.9-1.1) Sodium (136-145) mmol/L Potassium (3.5-5.1) mmol/L Chloride (98-107) mmol/L Carbon Dioxide (21-32) mmol/L Anion Gap (3-11) BUN (7-18) mg/dl Creatinine (0.6-1.4) mg/dl Est Cr Clr Drug Dosing ml/min Est GFR ( Amer) Est GFR (Non-Af Amer) BUN/Creatinine Ratio (10-20) Glucose (70-99) mg/dl Lactate 5.1 H* (0.4-2.0) mmol/L Calcium (8.5-10.1) mg/dl Magnesium 1.9 (1.8-2.4) mg/dl Total Bilirubin 17.8 H (0.2-1) mg/dl Direct Bilirubin 12.3 H (0-0.2) mg/dl AST 147 H (15-37) U/L ALT 148 H (12-78) U/L Alkaline Phosphatase 269 H (45-117) U/L Ammonia (11-32) umol/L Troponin I 0.072 H* (0-0.045) ng/ml Total Protein 6.5 (6.4-8.2) gm/dl Albumin 2.8 L (3.4-5.0) gm/dl Lipase 169 (73-393) U/L Procalcitonin (0-0.5) ng/ml TSH 4.830 H (0.300-4.500) uIu/ml Free T4 1.14 (0.8-1.6) ng/dl 11/28/19 11/28/19 11/28/19 Range/Units 19:05 19:05 20:07 WBC (4.8-10.8) K/uL RBC (4.7-6.1) M/uL Hgb (14.0-18.0) g/dL Hct (42-52) % MCV (80-100) fL MCH (25-34) pg MCHC (32-36) g/dL RDW Std Deviation (36.4-46.3) fL RDW Coeff of Lisa (11.5-14.5) % Plt Count (130-400) K/uL MPV (7.4-10.4) fL Immature Gran % (Auto) % Neut % (Auto) % Lymph % (Auto) % [place] % (Auto) % Eos % (Auto) % Baso % (Auto) % Neut # (Auto) (1.4-6.5) K/uL Lymph # (Auto) (1.2-3.4) K/uL [place] # (Auto) (0.11-0.59) K/uL Eos # (Auto) (0-0.5) K/uL Baso # (Auto) (0-0.2) K/uL Immature Gran # (Auto) (0.00-0.02) K/uL Anisocytosis Tear Drop Cells PT 15.9 H (9.0-12.0) Seconds INR 1.5 H (0.9-1.1) Sodium (136-145) mmol/L Potassium (3.5-5.1) mmol/L Chloride (98-107) mmol/L Carbon Dioxide (21-32) mmol/L Anion Gap (3-11) BUN (7-18) mg/dl Creatinine (0.6-1.4) mg/dl Est Cr Clr Drug Dosing ml/min Est GFR ( Amer) Est GFR (Non-Af Amer) BUN/Creatinine Ratio (10-20) Glucose (70-99) mg/dl Lactate (0.4-2.0) mmol/L Calcium (8.5-10.1) mg/dl Magnesium (1.8-2.4) mg/dl Total Bilirubin (0.2-1) mg/dl Direct Bilirubin (0-0.2) mg/dl AST (15-37) U/L ALT (12-78) U/L Alkaline Phosphatase (45-117) U/L Ammonia < 10.0 L (11-32) umol/L Troponin I (0-0.045) ng/ml Total Protein (6.4-8.2) gm/dl Albumin (3.4-5.0) gm/dl Lipase (73-393) U/L Procalcitonin 1.12 H (0-0.5) ng/ml TSH (0.300-4.500) uIu/ml Free T4 (0.8-1.6) ng/dl 11/28/19 Range/Units 20:07 WBC (4.8-10.8) K/uL RBC (4.7-6.1) M/uL Hgb (14.0-18.0) g/dL Hct (42-52) % MCV (80-100) fL MCH (25-34) pg MCHC (32-36) g/dL RDW Std Deviation (36.4-46.3) fL RDW Coeff of Lisa (11.5-14.5) % Plt Count (130-400) K/uL MPV (7.4-10.4) fL Immature Gran % (Auto) % Neut % (Auto) % Lymph % (Auto) % [place] % (Auto) % Eos % (Auto) % Baso % (Auto) % Neut # (Auto) (1.4-6.5) K/uL Lymph # (Auto) (1.2-3.4) K/uL [place] # (Auto) (0.11-0.59) K/uL Eos # (Auto) (0-0.5) K/uL Baso # (Auto) (0-0.2) K/uL Immature Gran # (Auto) (0.00-0.02) K/uL Anisocytosis Tear Drop Cells PT (9.0-12.0) Seconds INR (0.9-1.1) Sodium 133 L (136-145) mmol/L Potassium 4.4 (3.5-5.1) mmol/L Chloride 97 L (98-107) mmol/L Carbon Dioxide 24 (21-32) mmol/L Anion Gap 12.0 H (3-11) BUN 34 H (7-18) mg/dl Creatinine 1.48 H (0.6-1.4) mg/dl Est Cr Clr Drug Dosing 50.2 ml/min Est GFR ( Amer) 56.3 Est GFR (Non-Af Amer) 48.6 BUN/Creatinine Ratio 23.1 H (10-20) Glucose 132 H (70-99) mg/dl Lactate (0.4-2.0) mmol/L Calcium 9.3 (8.5-10.1) mg/dl Magnesium (1.8-2.4) mg/dl Total Bilirubin (0.2-1) mg/dl Direct Bilirubin (0-0.2) mg/dl AST (15-37) U/L ALT (12-78) U/L Alkaline Phosphatase (45-117) U/L Ammonia (11-32) umol/L Troponin I (0-0.045) ng/ml Total Protein (6.4-8.2) gm/dl Albumin (3.4-5.0) gm/dl Lipase (73-393) U/L Procalcitonin (0-0.5) ng/ml TSH (0.300-4.500) uIu/ml Free T4 (0.8-1.6) ng/dl Imaging Data Radiologist's Impression: CT head/brain wo con CLINICAL HISTORY: Acute change in mental status HISTORY OF TRANSITIONAL CELL CARCINOMA OF THE BLADDER COMPARISON STUDY: No previous studies for comparison. TECHNIQUE: Axial CT of the brain is performed from the vertex to the skull base. IV contrast was not administered for this examination. A dose lowering technique was utilized adhering to the principles of ALARA. CT DOSE: 1809.17 mGy.cm FINDINGS: No intra or extra-axial mass lesions are visualized. There is no CT evidence of acute cortical infarction. There is no evidence of midline shift. There is no acute hemorrhage. No calvarial fractures are visualized. There are minor white matter hypodensities likely on a small vessel basis. There is no evidence of pathologic ventricular dilatation. There is no evidence of acute sinusitis IMPRESSION: No acute intracranial findings ACT 112: Negative or not required by law. Electronically signed by: German Anderson M.D. 11/28/2019 7:[address] abdomen and pelvis without contrast: There is bilateral basilar atelectasis. There are at least 3 nodules/masses within the right lower lobe, the one seen anteriorly measuring approximately 2.7 x 2.0 cm. No pleural effusion or pneumothorax. There is a large amount of ascites. There are nodular margins throughout the liver concerning for underlying cirrhosis. There are multiple high density lesions within the liver concerning for multiple masses such as multilocular hepatocellular carcinoma versus metastatic disease, mainly lesions being confluent and largest averaging approximately 3.0 cm. There are bilateral nephrostomy tubes/stents in place. The spleen, pancreas and bilateral adrenal glands are unremarkable. There is mucosal thickening involv ing the small bowel which may be related to hyperproteinemic state versus enteritis. There is thickening of the urinary bladder wall which may indicate cystitis. There are calcifications along the anterior urinary bladder wall with asymmetric thickening which may indicate neoplasm. There is air within the bladder which may represent emphysematous cystitis versus recent catheterization. There is fluid infiltration of subcutaneous fat consistent with anasarca. There is multilevel degenerative disease of the lumbar spine with osteopenia. There is atherosclerotic disease of the aorta with no aneurysm. Radiologist: Claritza Marie MD Blood Pressure Blood Pressure Findings: Normal blood pressure MDM Narrative This is a 64-year-old male with a known diagnosis of metastatic bladder cancer, and recent abnormal LFTs who presents due to confusion according to the . Initial concern for hepatic encephalopathy, however labs drawn and sent, patient sent for CT of the head, and ammonia level resulted less than 10. CT of the head otherwise unremarkable, patient had a normal and nonfocal neuro exam. Mild coagulopathy secondary to liver dysfunction. Patient's bilirubin jumped from 5 to 17 since his discharge last week. On discussion with GI, they felt patient should be transferred due to concern for possible complications including portal vein thrombus given the rapid jump in the patient's bilirubin. Patient has not had any change in his abdominal pain, reflux symptoms, or nausea that have been ongoing over several months. Patient had just been seen and evaluated for spontaneous bacterial peritonitis last week during his admission. On discussion with [facility], they did not feel transfer was required, and felt the patient likely should be admitted here and have a palliative care consult as it seemed that his malignancy was worsening as the CT of the abdomen pelvis now showed new metastases in the liver. Patient and family kept updated at bedside. I did recontact our GI specialist here who was in agreement with plan. Case discussed with hospitalist. Patient remained hemodynamically stable throughout. Patient was given multiple doses of pain and nausea medication. Pt seen during a time of high acuity and national emergency pandemic while wearing PPE. 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
[2019-11-28] MEDS ORDERED: PANTOprazole 40 MG in SYRINGE 0 ML IV ONE (18:21)
[2019-11-28] MEDS ORDERED: ONDANSETRON INJ 2 MG/ML 2 ML VIAL IV STA (18:23)
[2019-11-28] MEDS: SODIUM CHLORIDE 0.9% 1000ML 1,000 ML IV SCH (18:55)
[2019-11-28] MEDS ORDERED: fentaNYL citrate 100 MCG/2 ML VIAL IV STA ×3 (19:08→22:40)
[2019-11-28 19:20] LABS: Hematocrit (blood only) 35.8 % (42-52); Hemoglobin 12.8 g/dL (14.0-18.0); Immature Granulocytes # (auto) 0.03 K/uL (0.00-0.02); Immature Granulocytes % (auto) 0.3 %; Lymphocytes # (auto) 0.54 K/uL (1.2-3.4); Lymphocytes % (auto) 5.7 %; Mean Corpuscular Hemoglobin 33.2 pg (25-34); Mean Corpuscular Hgb Conc 35.8 g/dL (32-36); Mean Platelet Volume 12.3 fL (7.4-10.4); Monocytes # (auto) 0.62 K/uL (0.11-0.59); Monocytes % (auto) 6.5 %; Neutrophils # (auto) 8.33 K/uL (1.4-6.5); Neutrophils % (auto) 87.5 %; Platelet Count 136 K/uL (130-400); RDW Standard Deviation 64.8 fL (36.4-46.3); Red Blood Count 3.85 M/uL (4.7-6.1); White Blood Count 9.52 K/uL (4.8-10.8)
[2019-11-28 19:27] LABS: INR 1.5 (0.9-1.1); Prothrombin Time 15.9 Seconds (9.0-12.0)
--- NOTE | 2019-11-28 19:48 | CT Scan Report ---
CT head/brain wo con CLINICAL HISTORY: Acute change in mental status HISTORY OF TRANSITIONAL CELL CARCINOMA OF THE BLADDER COMPARISON STUDY: No previous studies for comparison. TECHNIQUE: Axial CT of the brain is performed from the vertex to the skull base. IV contrast was not administered for this examination. A dose lowering technique was utilized adhering to the principles of ALARA. CT DOSE: 1809.17 mGy.cm FINDINGS: No intra or extra-axial mass lesions are visualized. There is no CT evidence of acute cortical infarc tion. There is no evidence of midline shift. There is no acute hemorrhage. No calvarial fractures ar e visualized. There are minor white matter hypodensities likely on a small vessel basis. There is no evidence of pathologic ventricular dilatation. There is no evidence of acute sinusitis IMPRESSION: No acute intracranial findings ACT 112: Negative or not required by law. Electronically signed by: German Anderson M.D. 11/28/2019 7:47 PM
[2019-11-28 19:51] LABS: Albumin Level 2.8 gm/dl (3.4-5.0); Bilirubin,Total 17.8 mg/dl (0.2-1); Magnesium 1.9 mg/dl (1.8-2.4); Thyroid Stimulating Hormone 4.83 uIu/ml (0.300-4.500); Total Protein 6.5 gm/dl (6.4-8.2); Troponin I 0.072 ng/ml (0-0.045)
[2019-11-28 19:55] LABS: Anisocytosis Present; Tear Drop Cells 1+
[2019-11-28 20:09] LABS: T4 Free Thyroxine 1.14 ng/dl (0.8-1.6)
[2019-11-28 20:14] LABS: Bilirubin Direct 12.3 mg/dl (0-0.2)
[2019-11-28 20:40] LABS: BUN Creatinine Ratio 23.1 (10-20); Calcium 9.3 mg/dl (8.5-10.1); Creatinine Clr Calc Pharmacy 50.2 ml/min; Est GFR (African American) 56.3; Est GFR (Non-African American) 48.6; Potassium 4.4 mmol/L (3.5-5.1)
[2019-11-28] MEDS ORDERED: HYDROmorphone INJ 0.5 MG/0.5 ML SYR IV PRN (23:08)
[2019-11-28] MEDS ORDERED: ALUMINUM/MAGNESIUM SUSP 30 ML UDC PO STA (23:10)
--- NOTE | 2019-11-29 02:35 | History & Physical Report ---
Date of Service November 29, 2019 Assessment & Plan (1) Irregular heart rhythm: Pancho Vora is a 64 yo man with a recently diagnosed metastatic bladder cancer who is here today for altered mental status and abdominal pain ALtered mental status In this patient with liver failure and large ascites concerned about SBP Will treat empirically with marisa GI consulted Dr. Guido Ammonia levels within normal limits Encephalopathy also possibly secondary to other infectious source or dehydration Blood cultures drawn x2, evidence of air in bladder possible infection downstream of current nephrostomy tubes Metastatic Liver Failure and BLadder Cancer Patient with worsening ascites and liver failure MELD score of 28 does not have appointment with oncologist for some time and current treatment is on hold, only has had one dose of his keytruda Will consult oncology and GI today to discuss possible treatments Concern for biliary obstruction will check MRCP for obstruction possible stenting to relieve symptoms. WIll continue high dose steroids that patient was put on by oncology with 70 mg daily starting tomorrow. Goals of treatment not clear with patient, need clarification on prognosis, oncology consulted I am concerned he may be entering a place where goals of care may need to be primarily palliative Abdominal pain Possibly secondary to ascites vs enteritis vs further ileus GI consulted marisa for abx, dilaudid for pain Elevated Lactate Likely secondary to cell necrosis secondary to cancer burden WOuld not exclude infectious component either ELevated troponin Likely demand ischemia, and ANGELITA, will continue to trend ANGELITA Likely prerenal, will treat with IV fluids and continue to trend F/E/N: NPO LR at 80 mls/hour DVT PPx: Lovenox Dispo: Admit to [facility] for further evaluation and monitoring Full Code (2) Thrombocytopenia: (3) Cirrhosis: (4) Hx of obstructive nephropathy: (5) H/O nephrostomy: (6) Malignant neoplasm of bladder metastatic to lung: (7) Liver metastases: (8) DVT prophylaxis: (9) Elevated LFTs: (10) Ileus: History of Present Illness Chief Complaint: Altered Mental Status Primary Care Provider: Reinier Flores Pancho Vora is a 64 year old man with a past medical history significant for metastatic bladder cancer diagnosed in March. He has multiple metastasis including his lungs and his liver he also has cirrhosis of the liver and ascites. He follows with oncology at [facility], is status post one dose of keytruda and bilateral nephrostomy tube placement in october. He was admitted last week for abdominal pain and was found to have an ileus, this resolved with scheduled miralax and attempting to limit opiate pain medication. In the meantime patient has been having some trouble with abdominal pain and worsening abdominal distension and lower limb swelling. He was seen by gastroenterology who recommended a short course of steroids and her oncologist increased this to a larger taper and he was started on 70 mg yesterday morning. He was supposed to be getting his second round of keytruda on Saturday but oncology has decided to push that back now until his liver symptoms are under better controls. When he woke up this morning patient was very altered. Does not remember anything but is present and tells me that he stripped all his clothing off and started to mess with his bandages and nephrostomy tubes. He continued to be altered all day until his brought him in this evening. Around the time he presented to the emergency department patient's confusion started to jack. His vital signs on presentation were within normal limits, his labwork was significant for hemoglobin of 12.8, INR of 1.5, Hyponatremia of 133, creatinine of 1.48, t bili of 17.8, lactate of 5.1, AST and ALT both elevated in the 140's, Alk phos of 269, and an elevated troponin of .072. procalcitonin of 1.12. CT head negative, CT abdomen and pelvis showing minimum of 3 masses in the right lower lobe of the lung, large amount of ascites, nodular margins of the liver suspicious of multiple masses, mucosal thickening of the small bowel, and bladder wall htickening, air in the bladder and degenerative disease of the lumbar spine. Case was discussed with gastroenterology who initially recommended transfer to tertiary care center, [facility] refused transfer because they feel this is all secondary to liver metastasis and they have nothing they can offer at this point. Patient's confusion is now much better, but he is having severe abdominal pain not relieved by fentanyl in ED and complaining of nausea without vomiting. 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 wishes to be a full code at this time. Allergies Allergy/AdvReac Type Severity Reaction Status Date / Time cat dander Allergy Mild watery eyes Unverified 11/19/19 11:07 No Known Drug Allergies Allergy Verified 11/19/19 11:07 Home Medications Home Medications Medication Instructions Recorded Confirmed Type clonazepam 0.5 mg tablet 0.5 mg PO QPM 04/08/19 11/28/19 History albuterol sulfate 2 puff INHALATION 6XD PRN 04/20/19 11/28/19 History levocetirizine [24HR Allergy 5 mg PO DAILY PRN 05/21/19 11/28/19 History Relief] tiotropium bromide 2.5 2 puffs INH BID #4 gm 08/27/19 11/28/19 Rx mcg/actuation mist for inhalation calcium carbonate [Calcium 600] 600 mg PO QAM 11/19/19 11/28/19 History metoprolol tartrate 50 mg PO BID 11/19/19 11/28/19 History baclofen 10 mg PO TID PRN 30 Days #90 tab 11/22/19 11/28/19 Rx polyethylene glycol 3350 [Miralax] 17 g PO DAILY PRN 30 Days ea 11/22/19 11/28/19 Rx ondansetron HCl 4 mg PO BID PRN 11/28/19 11/28/19 History prednisone 0 mg PO .DAILY/UD 11/28/19 11/28/19 History spironolactone 50 mg PO DAILY 11/28/19 11/28/19 History tramadol 50 mg PO Q6H PRN 11/28/19 11/28/19 History Past Med/Surg History Medical History (Updated 11/29/19 @ 16:47 by Sanam Brooks DO) Anxiety Asthma ALLERGY INDUCED ASTHMA COPD with emphysema Recently started on Spiriva by pulm Depression Environmental allergies CAT AND DOG DANDER Hyperlipidemia borderline Left upper lobe pulmonary nodule Had recent biopsy that showed metastatic disease from bladder cancer. Transitional cell carcinoma of bladder Urethral stricture Surgical History History of colonoscopy History of hernia surgery History of sinus surgery History of surgical removal of ganglion cyst Hx of wisdom tooth extraction Port-A-Cath in place (06/08/19) Insertion of Mediport Internal Jugular Left with Fluoroscopy Dr. 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 Manager Required: No Beliefs That Will Affect Care: None marital status: Current Living Situation: Spouse and Family current occupational status: employed 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 Other Information That Helps Us Care for You: No Feels Safe at Home: Yes Safety Concerns: Feels Safe At This Time Review of Systems Review of Systems: All systems reviewed & are unremarkable except as noted in HPI & below Physical Exam Constitutional: well developed, well nourished and + acute distress; not obese, no altered mental status and no behavioral limitations Eyes: PERRL, conjunctivae normal, anicteric sclerae Respiratory: normal respiratory effort, lungs clear to auscultation Cardiovascular: Rate/Rhythm: regular rate; + abnormal rhythm Heart Sounds: no click, no gallop, no murmur and no cardiac rub irregularly irregular rhythm Gastrointestinal (Abdomen): Inspection/Auscultation: + abdomen distended Percussion/Palpation: abdomen nontender and no guarding Skin: + jaundice Psychiatric: A+Ox3, euthymic affect Results & Data Results & Data ([facility]) Vital Signs (Past 12 Hours) Vital Signs Temp Pulse Resp BP BP Pulse Ox 11/29/19 01:02 88 L 11/28/19 22:00 127/73 11/28/19 20:00 130/74 11/28/19 18:54 114 H 26 H 128/69 91 11/28/19 18:30 118 H 16 147/80 H 97 11/28/19 18:00 128 H 19 132/76 98 11/28/19 17:39 131 H 26 H 133/82 99 11/28/19 16:56 37.1 C 78 16 109/72 98 Code Status & VTE Plan VTE Prophylaxis Plan VTE Prophylaxis will be ordered: Yes Supervising Physician Co-Signing Physician Notes Attending addendum: I have physically seen this patient, have supervised the medical residents activities, and agree with the H&P unless as otherwise noted. Assessment and Plan: Altered mental status/presumptive peritonitis- Place on Zosyn 4.5 g IV every 8 hours Zofran 4 mg IV every 6 hours as needed Famotidine 20 mg IV every 12 hours Dilaudid 0.5 mg Dilaudid 0.5 mg IV every 3 hours PRN severe pain Metastatic bladder cancer to liver- NPO Significantly worsened LFTs since last visit MELD score of 28 Both oncology and gastroenterology consulted. To be determined utility of MRCP to assess for possibility of biliary obstruction and palliative stent. Follow serial laboratories. Palliative care consult Elevated troponin- Type II CA follow serial laboratories Remainder of orders and notations as noted Resident Activity Tracking Resident Involvement: Resident Care Provided Care Provided: Adult [facility] Medicine
[2019-11-29] MEDS ORDERED: ALUMINUM/MAGNESIUM SUSP 30 ML UDC PO PRN (02:49)
[2019-11-29] MEDS ORDERED: PIPERACILL/TAZOBAC CONSULT ACTIVE PRN (02:49)
[2019-11-29] MEDS ORDERED: BACLOFEN 10 MG TAB PO PRN (02:49)
[2019-11-29] MEDS ORDERED: POLYETHYLENE (MIRALAX) 17 GM PACK PO PRN ×2 (02:49)
[2019-11-29] MEDS ORDERED: TRAMADOL HCL 50 MG TABLET PO PRN (02:49)
[2019-11-29] MEDS ORDERED: ALBUTEROL HFA 8 GM INHALER INH PRN (02:49)
[2019-11-29] MEDS ORDERED: ONDANSETRON INJ 2 MG/ML 2 ML VIAL IV PRN (02:49)
[2019-11-29] MEDS ORDERED: ONDANSETRON 4 MG OD TAB PO PRN (02:49)
[2019-11-29] MEDS ORDERED: HYDROmorphone INJ 0.5 MG/0.5 ML SYR IV PRN (02:49)
[2019-11-29] MEDS ORDERED: MAGNESIUM HYDROXIDE SUSP 30 ML UDC PO PRN (02:49)
[2019-11-29] MEDS ORDERED: PIPERACILLIN/TAZOBACTAM 4.5 GM in DEXTROSE 5% 100 ML IV ONE (03:30)
[2019-11-29] MEDS ORDERED: CETIRIZINE HCL 10 MG TABLET PO PRN (03:47)
--- NOTE | 2019-11-29 08:00 | CT Scan Report ---
CT SCAN OF THE ABDOMEN AND PELVIS WITHOUT CONTRAST CLINICAL HISTORY: Abdominal pain. Elevated lactate. History of metastatic bladder carcinoma. COMPARISON STUDY: 11/19/2019 TECHNIQUE: CT scan of the abdomen and pelvis was performed from the lung bases to the proximal femurs . Images are reviewed in the axial, sagittal, and coronal planes. IV contrast was not administered fo r this examination. A dose lowering technique was utilized adhering to the principles of ALARA. CT DOSE: 405.36 mGy.cm FINDINGS: Lower chest: There are multiple bilateral pulmonary nodules indicative of metastatic disease. The lar gest is located within the right lower lobe measuring 26 mm. Liver: There is hepatic steatosis. Liver has a cirrhotic morphology. Multiple hepatic masses are sugg ested on this noncontrast study. Gallbladder: Unremarkable. Spleen: Normal in size and attenuation. Pancreas: Unremarkable. Adrenal glands: Unremarkable. Kidneys: There are bilateral nephrostomy tubes present. There is no significant hydronephrosis. Bowel: The stomach is distended. There is no pathologic small bowel or colonic distention. Peritoneum: There is increasing low volume ascites. Vasculature: The abdominal aorta is normal in course and caliber. Adenopathy: Mesenteric lymph nodes are the upper limits of normal in size Pelvic viscera: Postsurgical changes involve the bladder. There is gas within the lumen. There is pat hologic bladder wall thickening. There is persistent infiltration of perivesical fat. Skeletal structures: No destructive osseous lesions are seen. IMPRESSION: 1. Examination limited by the lack of intravenous and oral contrast 2. Multiple bilateral pulmonary nodules consistent with metastatic disease 3. Cirrhotic morphology the liver. Possible multiple hepatic masses. 4. Abnormal bladder wall thickening with infiltration of perivesical fat consistent with the patient' s known bladder carcinoma 5. Moderate to marked gastric distention 6. Bilateral nephrostomy tubes. No evidence of significant hydronephrosis ACT 112: Negative or not required by law. Electronically signed by: German Anderson M.D. 11/29/2019 7:59 AM
[2019-11-29] MEDS: UMECLIDINIUM BROMIDE 62.5MCG/BLISTER 7 PUFFS/INHALER INH SCH (08:30)
[2019-11-29] MEDS: predniSONE 20 MG TAB PO SCH (08:32)
[2019-11-29] MEDS: CALCIUM 600MG + VIT D 400 IU TAB PO SCH (08:33)
[2019-11-29] MEDS: METOPROLOL TARTRATE 50 MG TAB PO SCH ×2 (08:33→21:20)
[2019-11-29] MEDS: SPIRONOLACTONE 25 MG TAB PO SCH (08:33)
[2019-11-29 08:34] LABS: Hematocrit (blood only) 33.7 % (42-52); Immature Granulocytes # (auto) 0.03 K/uL (0.00-0.02); Immature Granulocytes % (auto) 0.3 %; Lymphocytes # (auto) 1.13 K/uL (1.2-3.4); Lymphocytes % (auto) 10.4 %; Mean Corpuscular Hemoglobin 33.1 pg (25-34); Mean Corpuscular Hgb Conc 35.6 g/dL (32-36); Mean Corpuscular Volume 93.1 fL (80-100); Mean Platelet Volume 10.7 fL (7.4-10.4); Monocytes # (auto) 0.46 K/uL (0.11-0.59); Monocytes % (auto) 4.2 %; Neutrophils # (auto) 9.29 K/uL (1.4-6.5); Neutrophils % (auto) 85.1 %; Platelet Count 111 K/uL (130-400); RDW Coefficient of Variation 20.2 % (11.5-14.5); RDW Standard Deviation 63.7 fL (36.4-46.3); Red Blood Count 3.62 M/uL (4.7-6.1); White Blood Count 10.91 K/uL (4.8-10.8)
[2019-11-29] MEDS: ENOXAPARIN INJ 40 MG/0.4 ML SYR SQ SCH (08:34)
[2019-11-29 08:45] LABS: INR 1.5 (0.9-1.1); Prothrombin Time 15.9 Seconds (9.0-12.0)
[2019-11-29 08:51] LABS: Anisocytosis Present; Echinocytes 2+
[2019-11-29 09:01] LABS: Albumin Level 2.6 gm/dl (3.4-5.0); BUN Creatinine Ratio 23.4 (10-20); Calcium 9.3 mg/dl (8.5-10.1); Creatinine Clr Calc Pharmacy 54.4 ml/min; Est GFR (African American) 61.3; Est GFR (Non-African American) 52.9; Potassium 5.4 mmol/L (3.5-5.1)
[2019-11-29] MEDS: SODIUM CHLORIDE 0.9% 1000ML 1,000 ML IV SCH ×2 (09:23→22:53)
--- NOTE | 2019-11-29 09:56 | Electrocardiogram Report ---
Test Reason : Blood Pressure : / mmHG Vent. Rate : 117 BPM Atrial Rate : 101 BPM P-R Int : 124 ms QRS Dur : 076 ms QT Int : 312 ms P-R-T Axes : 071 073 038 degrees QTc Int : 435 ms Poor data quality, interpretation may be adversely affected Normal sinus rhythm with PAC's and PVC's Otherwise normal ECG When compared with ECG of 22-NOV-2019 12:29, No significant change was found Confirmed by Tremayne Hartmann ([id number]) on 11/29/2019 9:56:29 AM Referred By: REFERRED SELF Confirmed By:Tremayne Hartmann
[2019-11-29 09:57] LABS: Albumin Globulin Ratio 0.8 (0.9-2); Bilirubin,Total 18.2 mg/dl (0.2-1); Globulin 3.4 gm/dl (2.5-4.0); Troponin I 0.082 ng/ml (0-0.045)
--- NOTE | 2019-11-29 10:07 | Hospitalist Progress Note ---
Date of Service November 29, 2019 Assessment & Plan Admission and Anticipated Discharge Date Admission Date: November 29, 2019 Results & Data Results & Data ([facility]) Vital Signs (Past 12 Hours) Vital Signs Temp Pulse Pulse Resp BP BP Pulse Ox 11/29/19 07:38 94 H 11/29/19 05:13 36.8 C 94 H 18 131/70 95 11/29/19 02:33 108 H 119/75 94 11/29/19 01:02 88 L
--- NOTE | 2019-11-29 10:24 | Consultation Report ---
DATE OF CONSULTATION: 11/29/2019 The patient is admitted with worsening jaundice. HISTORY OF PRESENT ILLNESS: The patient is a 64-year-old with aggressive bladder cancer with pelvic spread and metastases to his lungs. He has bilateral urostomy and was recently hospitalized. His liver tests were abnormal and it was felt that he probably has cirrhosis. His initial CT scan during that admission showed what was felt to be benign hepatic cyst. His VIBHA came back positive and he does consume some alcohol, so it was probably felt that this was a combination and he was started on 10 mg of prednisone as an outpatient this past week for possible autoimmune hepatitis. He was admitted last night through the ER with confusion and repeat CAT scan was interpreted as showing multiple hepatic metastases consistent with metastatic bladder cancer. His bilirubin has also went from 5.6 up into 12 in a very short period of time. [facility] was consulted and they recommended palliation. PAST MEDICAL HISTORY: Depression, hyperlipidemia, anxiety, asthma. FAMILY HISTORY: His father of heart disease and kidney stones. Mother had diabetes. SOCIAL HISTORY: The patient is , former smoker. Drinks beer, wine and alcohol, hard liquor. . 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 PHYSICAL EXAMINATION: GENERAL: The patient appears jaundiced. VITAL SIGNS: Pulse 78. Blood pressure is 109/72, temperature is 37.1. GENITOURINARY: He has bilateral nephrostomy tubes with dark urine in both bags. ABDOMEN: Markedly distended and tympanitic, not significantly tender. EXTREMITIES: Legs showed bilateral edema, possibly from lymphedema. IMPRESSION AND PLAN: The patient has aggressive bladder cancer with pelvic metastases from local spread, lung metastases and now multiple hepatic metastases. Had a discussion with the patient that this is not a curable condition and that palliation and comfort measures are most likely indicated. I have consulted Palliative Care and Financial Investment Adviser to try to arrange for home hospice. The patient states that he has already prepared power of personal injury attorney for healthcare and a will at home with his . I did talk to his and apprised her of the status and that she would probably be getting contacted to arrange for home care. In the meantime, we will place a nasogastric tube temporarily to try to decompress the stomach and place him on sequential compression devices for his lower extremity edema to see if that helps with palliation. I would avoid lactulose as it will just add to the abdominal distention and just use Xifaxan twice a day for possible hepatic encephalopathy.
--- NOTE | 2019-11-29 11:11 | Magnetic Resonance Report ---
MRCP CLINICAL HISTORY: Possible biliary obstruction. Cirrhosis. Worsening ascites. Metastatic bladder canc er. TECHNIQUE: Utilizing a 1.5 Roya magnet and dedicated coil, multiplanar, multiecho imaging of the [facility] er abdomen was performed utilizing heavily T2 weighted pulsing sequences without IV contrast. COMPARISON STUDY: MRCP November 19, 2019. CT of the abdomen and pelvis November 28, 2019. FINDINGS: The exam is significantly compromised by artifact. Moderate ascites is noted. Nodularity of the liver surface indicates cirrhosis. Heterogeneity of the liver parenchyma is noted. This is likel y related to cirrhosis or differential fatty infiltration. Hepatic masses could appear similar but ar e considered less likely. Numerous T2 hyperintense hepatic lesions are unchanged from earlier exams a nd reflect cysts. No intrahepatic biliary ductal dilatation is identified. The common bile duct is la rgely obscured but does not appear to be dilated. Periportal edema is again noted. Stomach is moderat kermit distended. Unenhanced images of the spleen and adrenal glands are unremarkable. Pancreas is likel y within normal limits. IMPRESSION: 1. No intrahepatic biliary ductal dilatation. Common bile duct obscured but likely normal in caliber. Given artifact, common bile calculi cannot be assessed for on this exam. 2. Cirrhosis with moderate ascites. 3. Heterogeneity of the liver parenchyma which is likely related to cirrhosis or differential fatty i nfiltration. Hepatic masses could appear similar but are considered less likely. ACT 112: Negative or not required by law. Electronically signed by: Korey Rush M.D. 11/29/2019 11:10 AM
[2019-11-29] MEDS: PIPERACILLIN/TAZOBACTAM 3.375 GM in DEXTROSE 5% 100 ML IV SCH ×2 (11:40→17:42)
--- NOTE | 2019-11-29 14:08 | Hospitalist Progress Note ---
Date of Service November 29, 2019 Assessment & Plan (1) Hyperbilirubinemia: Unclear cause. MRCP on 11/28 did not show gross obstruction. Concern for neoplastic infiltrate vs. reaction to pembrolizumab. - Continue prednisone taper (tomorrow 60 mg). - Monitor (2) Confusion: Presumed secondary to cirrhosis and liver dysfunction from liver mets. Infectious encephalopathy also possible. - Improved today, though still clearly has short-term memory issues. 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 - Per admission physician, [facility] declined transfer. Will reach out to patient's oncologist tomorrow. (4) Malignant neoplasm of bladder metastatic to lung: Follows with [facility] oncology. Had received a single dose of Keytruda, but per report, this will now be held. - As above (5) H/O nephrostomy: Inserted due to his bladder cancer. - No inpatient needs. (6) COPD with emphysema: Breathing comfortably at this time. - DuoNebs PRN (7) Depression: - Continue citalopram and clonazepam (8) DVT prophylaxis: Lovenox 40 mg SQ daily Admission and Anticipated Discharge Date Admission Date: November 29, 2019 Subjective Confused. Minimal abdominal pain. Reports no fevers/chills, chest pain, shortness of breath, nausea, or vomiting. Physical Exam Constitutional: WD/WN, vitals as above Eyes: EOM intact bilaterally; no conjunctival abnormality ENMT: external ear and nose normal, oropharynx normal Neck: trachea midline, no thyromegaly normal visual inspection Respiratory: normal respiratory effort, lungs clear to auscultation no respiratory distress Cardiovascular: RRR, no murmur, no edema Gastrointestinal (Abdomen): Inspection/Auscultation: abdomen normal to inspection; abdomen not distended Musculoskeletal: no cyanosis or clubbing, extremities motor strength 5/5 Skin: no rashes, warm and dry Neurologic: moves all extremities and awake Psychiatric: Orientation: alert, oriented to person and cooperative Thought Process: + tangential thought process Results & Data Results & Data ([place]) Vital Signs (Past 12 Hours) Vital Signs Temp Pulse Pulse Resp BP BP Pulse Ox 11/29/19 11:14 36.9 C 75 18 124/63 91 11/29/19 07:38 94 H 11/29/19 05:13 36.8 C 94 H 18 131/70 95 11/29/19 02:33 108 H 119/75 94 PG Care Time/CCT Total # of Minutes Spent Total Time Spent with Patient: Total time spent is greater than 50% in coordinat ion of care (as documented) at patient's floor/unit and/or counseling patient: Coding Level of Care Code 04878 Subseq Hosp Care Lvl 3 Diagnoses Hyperbilirubinemia E80.6 Confusion R41.0 Liver metastases C78.7 Malignant neoplasm of bladder metastatic to lung C67.9; C78.00 H/O nephrostomy COPD with emphysema J43.9 Depression F32.9 DVT prophylaxis Z29.9
[2019-11-29] MEDS: LORazepam 0.5 MG TAB SL PRN (16:48)
[2019-11-29] MEDS ORDERED: MoRPHine SULFATE 2 MG/ML CARP IV PRN (17:23)
[2019-11-29] MEDS ORDERED: MoRPHine SULFATE 2 MG/ML CARP ONE (17:38)
--- NOTE | 2019-11-29 19:38 | Billing Data ---
Date of Service November 29, 2019 Coding Level of Care Code 93443 OBS Care - Level 3
[2019-11-29] MEDS: RIFAXIMIN 550 MG TABLET PO SCH (21:20)
[2019-11-29] MEDS: clonazePAM 0.5 MG TAB PO SCH (21:20)
[2019-11-30] MEDS ORDERED: HEPARIN 100 UNIT/ML 5ML FLUSH FLUSH PRN (00:49)
[2019-11-30] MEDS: PIPERACILLIN/TAZOBACTAM 3.375 GM in DEXTROSE 5% 100 ML IV SCH ×3 (02:02→18:00)
[2019-11-30] MEDS: LORazepam 0.5 MG TAB SL PRN (04:40)
[2019-11-30 06:28] LABS: Hematocrit (blood only) 33.7 % (42-52); Hemoglobin 11.9 g/dL (14.0-18.0); Mean Corpuscular Hemoglobin 33.1 pg (25-34); Mean Corpuscular Hgb Conc 35.3 g/dL (32-36); Mean Corpuscular Volume 93.9 fL (80-100); Mean Platelet Volume 11.7 fL (7.4-10.4); Platelet Count 120 K/uL (130-400); RDW Coefficient of Variation 20.9 % (11.5-14.5); Red Blood Count 3.59 M/uL (4.7-6.1); White Blood Count 12.57 K/uL (4.8-10.8)
[2019-11-30 06:37] LABS: INR 1.8 (0.9-1.1); Prothrombin Time 18.5 Seconds (9.0-12.0)
[2019-11-30 07:05] LABS: Albumin Globulin Ratio 0.7 (0.9-2); Albumin Level 2.2 gm/dl (3.4-5.0); BUN Creatinine Ratio 25.2 (10-20); Bilirubin,Total 16.6 mg/dl (0.2-1); Calcium 8.4 mg/dl (8.5-10.1); Creatinine Clr Calc Pharmacy 51.5 ml/min; Est GFR (African American) 58.2; Est GFR (Non-African American) 50.2; Globulin 3.2 gm/dl (2.5-4.0); Magnesium 2.1 mg/dl (1.8-2.4); Potassium 4.7 mmol/L (3.5-5.1); Total Protein 5.4 gm/dl (6.4-8.2)
--- NOTE | 2019-11-30 08:25 | Gastroenterology Progress Note ---
Date of Service November 30, 2019 Assessment & Plan (1) Liver metastases: Patient with increased confusion through the night. Pulled NGT - no nausea, vomiting at present. Consult has been placed to Palliative care. Admission and Anticipated Discharge Date Admission Date: November 29, 2019 Subjective Patient sitting upright in bed reading a newspaper. Alert to person. driver license examiner at bedside. Per nursing notes, confusion increased through the night. Patient did pull his NGT out overnight as "it was bothering him". Denies any nausea, vomiting, abdominal pain. Review of Systems Review of Systems: All systems reviewed & are unremarkable except as noted in HPI & below Physical Exam Constitutional: WD/WN, vitals as above Eyes: wears corrective lenses Neck: trachea midline, no thyromegaly Respiratory: normal respiratory effort; no respiratory distress and no labored breathing Cardiovascular: Rate/Rhythm: + abnormal rhythm Extremities: no edema Gastrointestinal (Abdomen): Inspection/Auscultation: + abdomen distended and + hypoactive bowel sounds Percussion/Palpation: abdomen soft and + tympanic to percussion; abdomen nontender and no guarding Musculoskeletal: Extremities: no cyanosis and no clubbing Neurologic: PERRL, EOMI, accommodation nl, no face palsy, no dysarthria Psychiatric: Orientation: alert (person) Genitourinary: bilateral nephrostomy tubes intact and draining Results & Data ([facility]) Vital Signs (Past 12 Hours) Vital Signs Temp Pulse Pulse Resp BP Pulse Ox 11/30/19 07:21 67 11/30/19 05:51 36.7 C 72 18 96/57 L 94 11/30/19 04:00 36.5 C 63 18 101/62 93 11/30/19 00:05 61 11/29/19 23:00 37.0 C 64 18 107/55 L 92 Laboratory Results - last 24 hr 11/29/19 11/29/19 11/29/19 08:18 08:18 08:18 WBC 10.91 H RBC 3.62 L Hgb 12.0 L Hct 33.7 L MCV 93.1 MCH 33.1 MCHC 35.6 RDW Std Deviation 63.7 H RDW Coeff of Lisa 20.2 H Plt Count 111 L MPV 10.7 H Immature Gran % (Auto) 0.3 Neut % (Auto) 85.1 Lymph % (Auto) 10.4 [place] % (Auto) 4.2 Eos % (Auto) 0.0 Baso % (Auto) 0.0 Neut # (Auto) 9.29 H Lymph # (Auto) 1.13 L [place] # (Auto) 0.46 Eos # (Auto) 0.00 Baso # (Auto) 0.00 Immature Gran # (Auto) 0.03 H Anisocytosis Present Echinocytes 2+ PT 15.9 H INR 1.5 H Sodium Potassium Chloride Carbon Dioxide Anion Gap BUN Creatinine Est Cr Clr Drug Dosing Est GFR ( Amer) Est GFR (Non-Af Amer) BUN/Creatinine Ratio Glucose Lactate Calcium Phosphorus 2.9 Magnesium Total Bilirubin AST ALT Alkaline Phosphatase Troponin I Total Protein Albumin Globulin Albumin/Globulin Ratio 11/29/19 11/29/19 11/29/19 08:18 08:18 11:11 WBC RBC Hgb Hct MCV MCH MCHC RDW Std Deviation RDW Coeff of Lisa Plt Count MPV Immature Gran % (Auto) Neut % (Auto) Lymph % (Auto) [place] % (Auto) Eos % (Auto) Baso % (Auto) Neut # (Auto) Lymph # (Auto) [place] # (Auto) Eos # (Auto) Baso # (Auto) Immature Gran # (Auto) Anisocytosis Echinocytes PT INR Sodium 132 L Potassium 5.4 H D Chloride 100 Carbon Dioxide 22 Anion Gap 9.0 BUN 32 H Creatinine 1.38 Est Cr Clr Drug Dosing 54.4 Est GFR ( Amer) 61.3 Est GFR (Non-Af Amer) 52.9 BUN/Creatinine Ratio 23.4 H Glucose 114 H Lactate 3.8 H* 3.1 H* Calcium 9.3 Phosphorus Magnesium 2.0 Total Bilirubin 18.2 H AST 131 H ALT 136 H Alkaline Phosphatase 232 H Troponin I 0.082 H* Total Protein 6.0 L Albumin 2.6 L Globulin 3.4 Albumin/Globulin Ratio 0.8 L 11/30/19 11/30/19 11/30/19 06:13 06:13 06:13 WBC 12.57 H RBC 3.59 L Hgb 11.9 L Hct 33.7 L MCV 93.9 MCH 33.1 MCHC 35.3 RDW Std Deviation 67.0 H RDW Coeff of Lisa 20.9 H Plt Count 120 L MPV 11.7 H Immature Gran % (Auto) Neut % (Auto) Lymph % (Auto) [place] % (Auto) Eos % (Auto) Baso % (Auto) Neut # (Auto) Lymph # (Auto) [place] # (Auto) Eos # (Auto) Baso # (Auto) Immature Gran # (Auto) Anisocytosis Echinocytes PT 18.5 H INR 1.8 H Sodium 133 L Potassium 4.7 Chloride 102 Carbon Dioxide 20 L Anion Gap 11.0 BUN 36 H Creatinine 1.44 H Est Cr Clr Drug Dosing 51.5 Est GFR ( Amer) 58.2 Est GFR (Non-Af Amer) 50.2 BUN/Creatinine Ratio 25.2 H Glucose 74 Lactate Calcium 8.4 L Phosphorus 4.0 D Magnesium 2.1 Total Bilirubin 16.6 H AST 118 H ALT 121 H Alkaline Phosphatase 194 H Troponin I Total Protein 5.4 L Albumin 2.2 L Globulin 3.2 Albumin/Globulin Ratio 0.7 L
[2019-11-30] MEDS: RIFAXIMIN 550 MG TABLET PO SCH ×2 (08:32→20:04)
[2019-11-30] MEDS: METOPROLOL TARTRATE 50 MG TAB PO SCH ×2 (08:33→20:04)
[2019-11-30] MEDS: SPIRONOLACTONE 25 MG TAB PO SCH (08:35)
[2019-11-30] MEDS: predniSONE 20 MG TAB PO SCH (08:35)
[2019-11-30] MEDS: UMECLIDINIUM BROMIDE 62.5MCG/BLISTER 7 PUFFS/INHALER INH SCH (08:36)
[2019-11-30] MEDS: ENOXAPARIN INJ 40 MG/0.4 ML SYR SQ SCH (08:36)
[2019-11-30] MEDS: CALCIUM 600MG + VIT D 400 IU TAB PO SCH (08:36)
--- NOTE | 2019-11-30 09:22 | Electrocardiogram Report ---
Test Reason : Blood Pressure : / mmHG Vent. Rate : 068 BPM Atrial Rate : 068 BPM P-R Int : 114 ms QRS Dur : 078 ms QT Int : 410 ms P-R-T Axes : 063 068 053 degrees QTc Int : 435 ms Sinus rhythm with Premature atrial complexes Otherwise normal ECG When compared with ECG of 28-NOV-2019 18:44, Premature atrial complexes are now Present Vent. rate has decreased BY 49 BPM Confirmed by Eric Whyte ([id number]) on 11/30/2019 9:22:21 AM Referred By: REFERRED SELF Confirmed By:Eric Whyte
[2019-11-30] MEDS: SODIUM CHLORIDE 0.9% 1000ML 1,000 ML IV SCH ×2 (09:39→21:50)
--- NOTE | 2019-11-30 11:20 | Palliative Care Consultation ---
Date of Consultation November 30, 2019 Assessment & Plan (1) Goals of care, counseling/discussion: This is a 64 year old male who presented to the [facility] with altered mental status. The patient has metastatic bladder cancer with metastasis to the lung and liver that was diagnosed in March 2019. He most recently was taking Kaytruda. The patient has had consistent ascites and bilateral nephrostomy tubes were placed in October. The patient had a recent admission from 11/18-11/21 with ascites/abdominal pain. This admission the patient declined transfer to [facility]. Lengthy conversation was held with the patient and hospitalist and the patient and has decided to pursue Hospice at home. Palliative Care was consulted to assist with goals of care/symptom management. -I met with the patient and his , Brittany in room 286-2. -The patient was sleeping, but awoke easily. He denied any pain. -He did have an NGT that he pulled out this morning, which was providing a lot of decompression comfort. -The and him have decided to return home with hospice services. [facility] was chosen and it is planned for him to return home tomorrow. -The patient's had a lot of questions regarding hospice and pain management. I discussed multiple pain regimens that could be used, GIP hospice if his symptoms are uncontrolled, respite hospice, and SNF if the transition home does not goes as she envisions. -All questions answered. Dr. Yao will see the patient this afternoon as well to provide support. -Currently the patient has Morphine and Tramadol ordered for pain. The patient has not utilized any pain medications today, but did use one dose of Ativan. -Patient does remain a full code at this time and will transition to DNR when he returns home with hospice. -PPS: 30%. -Palliative will follow peripherally unless additional symptoms arrise or if family has additional questions. Per hospitalist, planning for DC tomorrow (). (2) Thrombocytopenia: (3) Malignant neoplasm of bladder metastatic to lung: (4) Depression: Supervising Physician Co-Signing Physician Notes Late entry: Chart reviewed , pt seen and examined on 11/29, sitter at bedside Pt awake and alert, confused PE: NAD HEENT: scleral icterus Resp: clear BS, unlabored CV: RR, no edema Abd: soft, NT skin: jaundice Neuro: confused Agree with above note , assessment and plan as per LOVE Moffett, will cont to follow and assist family with medical decision making History of Present Illness Reason for Consultation: Goals of care Requesting Physician: Dr. Cho Attending Physician: Gus Cho MD History of Present Illness This is a 64 year old male who presented to the [facility] with altered mental status. The patient has metastatic bladder cancer with metastasis to the lung and liver that was diagnosed in March 2019. He most recently was taking Kaytruda. The patient has had consistent ascites and bilateral nephrostomy tubes were placed in October. The patient had a recent admission from 11/18-11/21 with ascites/abdominal pain. This admission the patient declined transfer to [facility]. Lengthy conversation was held with the patient and hospitalist and the patient and has decided to pursue Hospice at home. Palliative Care was consulted to assist with goals of care/symptom management. Please see A/P for further information. Thank you kindly for inolving the palliative care team. Allergies Allergy/AdvReac Type Severity Reaction Status Date / Time cat dander Allergy Mild watery eyes Unverified 11/19/19 11:07 No Known Drug Allergies Allergy Verified 11/19/19 11:07 Home Medications Home Medications Medication Instructions Recorded Confirmed Type clonazepam 0.5 mg tablet 0.5 mg PO QPM 04/08/19 11/28/19 History albuterol sulfate 2 puff INHALATION 6XD PRN 04/20/19 11/28/19 History levocetirizine [24HR Allergy 5 mg PO DAILY PRN 05/21/19 11/28/19 History Relief] tiotropium bromide 2.5 2 puffs INH BID #4 gm 08/27/19 11/28/19 Rx mcg/actuation mist for inhalation calcium carbonate [Calcium 600] 600 mg PO QAM 11/19/19 11/28/19 History metoprolol tartrate 50 mg PO BID 11/19/19 11/28/19 History baclofen 10 mg PO TID PRN 30 Days #90 tab 11/22/19 11/28/19 Rx polyethylene glycol 3350 [Miralax] 17 g PO DAILY PRN 30 Days ea 11/22/19 11/28/19 Rx ondansetron HCl 4 mg PO BID PRN 11/28/19 11/28/19 History prednisone 0 mg PO .DAILY/UD 11/28/19 11/28/19 History spironolactone 50 mg PO DAILY 11/28/19 11/28/19 History tramadol 50 mg PO Q6H PRN 11/28/19 11/28/19 History Patient History Medical History (Updated 11/30/19 @ 17:16 by LOVE Moffett) Anxiety Asthma ALLERGY INDUCED ASTHMA COPD with emphysema Recently started on Spiriva by pulm Depression Environmental allergies CAT [employer]G DANDER Goals of care, counseling/discussion Hyperlipidemia borderline Left upper lobe pulmonary nodule Had recent biopsy that showed metastatic disease from bladder cancer. Transitional cell carcinoma of bladder Urethral stricture Surgical History History of colonoscopy History of hernia surgery History of sinus surgery History of surgical removal of ganglion cyst Hx of wisdom tooth extraction Port-A-Cath in place (06/08/19) Insertion of Mediport Internal Jugular Left with Fluoroscopy Dr. Escobar 06-08-19 Status post surgical removal and fulguration of bladder neoplasm 05/07/2019 [facility], urethrotomy, rt ureter stent placement Family History Mother Diabetes Father Heart disease Kidney stones Other No family history of adverse response to anesthesia Social History Smoking Status: Former smoker Cigarettes Per Day: 10; Second Hand Exposure: No; Do You Dip or Chew Tobacco: No; Hx Alcohol Use: Yes Alcohol type: other Hx Substance Use: No Preferred Language: Bengali Communication Ability: Impaired Roller Coaster Operator Required: No Beliefs That Will Affect Care: None marital status: Current Living Situation: Spouse and Family current occupational status: employed 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 Other Information That Helps Us Care for You: No Feels Safe at Home: Yes Safety Concerns: Feels Safe At This Time Review of Systems Review of Systems: All systems reviewed & are unremarkable except as noted in HPI & below Physical Exam Constitutional: + thin, + frail appearing, cooperative and comfortable Respiratory: normal respiratory effort, lungs clear to auscultation Cardiovascular: RRR, no murmur, no edema Gastrointestinal (Abdomen): Inspection/Auscultation: + abdomen distended Percussion/Palpation: + abdomen rigid Jaundiced Skin: no rashes, warm and dry + jaundice Psychiatric: Orientation: alert and oriented x 3 Eye Contact: + fair eye contact Insight: + limited insight Judgement: + limited judgement Results & Data ([facility]) Vital Signs (Past 12 Hours) Vital Signs Temp Pulse Pulse Pulse Resp BP BP 11/30/19 11:11 36.5 C 56 L 18 108/66 11/30/19 09:04 36.5 C 60 22 107/69 11/30/19 08:45 102/56 L 11/30/19 07:21 67 11/30/19 05:51 36.7 C 72 18 96/57 L 11/30/19 04:00 36.5 C 63 18 101/62 11/30/19 00:05 61 Pulse Ox 11/30/19 11:11 94 11/30/19 09:04 92 11/30/19 08:45 11/30/19 07:21 11/30/19 05:51 94 11/30/19 04:00 93 11/30/19 00:05 PG Care Time/CCT Total # of Minutes Spent Total Time Spent with Patient: Total time spent is greater than 50% in coordination of care (as documented) at patient's floor/unit and/or counseling patient: 70 Coding Level of Care Code 12466 Inpt Consult Level 3 Diagnoses Goals of care, counseling/discussion Z71.89 Thrombocytopenia D69.6 Malignant neoplasm of bladder metastatic to lung C67.9; C78.00 Depression F32.9 Time Spent (min) 70 Time Spent Midlevel total time spent 70 minutes with > 50% of that time spent assessing the patient, discussing symptom management and collaborating with IDT
--- NOTE | 2019-11-30 15:31 | Hospitalist Progress Note ---
Date of Service November 30, 2019 Assessment & Plan (1) Hyperbilirubinemia: Unclear cause. MRCP on 11/28 did not show gross obstruction. Concern for neoplastic infiltrate vs. reaction to pembrolizumab. - Continue prednisone taper (tomorrow 60 mg). - Monitor -> No change today. (2) Confusion: Presumed secondary to cirrhosis and liver dysfunction from liver mets. Infectious encephalopathy also possible. - Improved today, though still clearly has short-term memory issues. Overnight he also was more confused and pulled his NG tube out. 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 CT a/p and MRCP both do not show definitive evidence; however, they are both show possible metastatic disease. (4) Malignant neoplasm of bladder metastatic to lung: Follows with [facility], Dr. Mihai Crawford. Had received a single dose of Keytruda, but per report, this will now be held due to liver issues. I spoke with Dr. Crawford and Dr. Bustamante on 11/29. When I described Mr. Vora's condition to the best of my ability, both reported he is not likely a candidate for any further chemotherapy or immunotherapy. Both felt that palliative care and hospice is appropriate in this situation. - Plan for hospice tomorrow (5) H/O nephrostomy: Inserted due to his bladder cancer. - No inpatient needs. (6) COPD with emphysema: Breathing comfortably at this time. - DuoNebs PRN (7) Depression: - Continue citalopram and clonazepam (8) DVT prophylaxis: Lovenox 40 mg SQ daily Admission and Anticipated Discharge Date Admission Date: November 29, 2019 Subjective No pain this morning, but he did pull out his NG tube. He very much wants to go home. Physical Exam Constitutional: WD/WN, vitals as above Eyes: EOM intact bilaterally; no conjunctival abnormality ENMT: external ear and nose normal, oropharynx normal Neck: trachea midline, no thyromegaly normal visual inspection Respiratory: normal respiratory effort, lungs clear to auscultation no respiratory distress Cardiovascular: RRR, no murmur, no edema Gastrointestinal (Abdomen): Inspection/Auscultation: abdomen normal to inspection; abdomen not distended Musculoskeletal: no cyanosis or clubbing, extremities motor strength 5/5 Skin: no rashes, warm and dry Neurologic: moves all extremities and awake Psychiatric: Orientation: alert, oriented to person and cooperative Thought Process: + tangential thought process Results & Data Results & Data ([facility]) Vital Signs (Past 12 Hours) Vital Signs Temp Pulse Pulse Pulse Resp BP BP 11/30/19 15:12 58 L 11/30/19 11:11 36.5 C 56 L 18 108/66 11/30/19 09:04 36.5 C 60 22 107/69 11/30/19 08:45 102/56 L 11/30/19 07:21 67 11/30/19 05:51 36.7 C 72 18 96/57 L 11/30/19 04:00 36.5 C 63 18 101/62 Pulse Ox 11/30/19 15:12 11/30/19 11:11 94 11/30/19 09:04 92 11/30/19 08:45 11/30/19 07:21 11/30/19 05:51 94 11/30/19 04:00 93 PG Care Time/CCT Total # of Minutes Spent Total Time Spent with Patient: Total time spent is greater than 50% in coordination of care (as documented) at patient's floor/unit and/or counseling patient: Coding Level of Care Code 03955 Subseq Hosp Care Lvl 2 Diagnoses Hyperbilirubinemia E80.6 Confusion R41.0 Liver metastases C78.7 Malignant neoplasm of bladder metastatic to lung C67.9; C78.00 H/O nephrostomy COPD with emphysema J43.9 Depression F32.9 DVT prophylaxis Z29.9
--- NOTE | 2019-11-30 17:29 | Progress Notes ---
DATE: 11/30/2019 Supplement to progress note by Arlene Locke earlier today: I visited the patient and spoke with him and his who was present at the time. The patient appears to have multiple liver metastases and significantly abnormal liver tests, which have progressed quite rapidly. His MRCP done today did not show any signs of biliary obstruction and his CAT scan done without IV and oral contrast shows multiple heterogeneous areas within the liver consistent with liver metastases. I did communicate with his oncologist at [facility] earlier today and he does not believe that his liver failure is from his Keytruda and he agrees with the plan for home hospice, which is hopefully going to be set up for tomorrow. I have ordered a full liquid diet and if the patient has significant abdominal distention prior to being released from the hospital, he is agreeable to having the nasogastric tube replaced temporarily to decompress the stomach prior to leaving the hospital, so he starts off with a decompressed stomach once he goes home. His had several questions that we answered and hopefully home hospice can be arranged so that he can be discharged tomorrow.
[2019-11-30] MEDS: clonazePAM 0.5 MG TAB PO SCH (20:05)
[2019-11-30] MEDS ORDERED: HYDROmorphone INJ 1 MG/ML SYRINGE IV STA (23:48)
[2019-12-01] MEDS: PIPERACILLIN/TAZOBACTAM 3.375 GM in DEXTROSE 5% 100 ML IV SCH (02:04)
[2019-12-01 06:33] LABS: Mean Corpuscular Hgb Conc 35.5 g/dL (32-36)
[2019-12-01 06:43] LABS: INR 1.9 (0.9-1.1); Prothrombin Time 18.9 Seconds (9.0-12.0)
[2019-12-01 06:47] LABS: Hematocrit (blood only) 38.3 % (42-52); Hemoglobin 13.6 g/dL (14.0-18.0); Mean Corpuscular Hemoglobin 33.3 pg (25-34); Mean Corpuscular Volume 93.6 fL (80-100); RDW Coefficient of Variation 21.4 % (11.5-14.5); RDW Standard Deviation 69.9 fL (36.4-46.3); Red Blood Count 4.09 M/uL (4.7-6.1); White Blood Count 9.25 K/uL (4.8-10.8)
[2019-12-01 06:57] LABS: Mean Platelet Volume 12.1 fL (7.4-10.4); Platelet Count 133 K/uL (130-400)
[2019-12-01 07:37] LABS: Albumin Globulin Ratio 0.7 (0.9-2); Albumin Level 2.3 gm/dl (3.4-5.0); BUN Creatinine Ratio 26.3 (10-20); Bilirubin,Total 20.1 mg/dl (0.2-1); Calcium 8.3 mg/dl (8.5-10.1); Creatinine Clr Calc Pharmacy 45.2 ml/min; Est GFR (Non-African American) 42.3; Globulin 3.4 gm/dl (2.5-4.0); Magnesium 2.8 mg/dl (1.8-2.4); Phosphorus 4.6 mg/dl (2.5-4.9); Potassium 5.1 mmol/L (3.5-5.1); Total Protein 5.7 gm/dl (6.4-8.2)
--- NOTE | 2019-12-01 08:23 | Gastroenterology Progress Note ---
Date of Service December 01, 2019 Assessment & Plan (1) Liver metastases: Patient with bladder cancer that demonstrated multiple heterogeneous areas within the liver on CT A/P imaging consistent with liver metastases. Abdominal distention decompressed initially with NGT which the patient poorly tolerated. Minimal abdominal distention today. Plan is discharge to home with hospice. Dr. Guido has spoken at length to patient and spouse. Thank you for the consult, please reconsult if needed. Admission and Anticipated Discharge Date Admission Date: November 29, 2019 Subjective Patient sleeping. Nursing notes reviewed. Some abdominal pain through the night. PRN pain medication administered with resolution of pain. No nausea or vomiting. Spoke to hospitalist - plan is discharge to home possibly today with hospice. Review of Systems Review of Systems: All systems reviewed & are unremarkable except as noted in HPI & below Physical Exam Constitutional: WD/WN, vitals as above Neck: trachea midline, no thyromegaly Respiratory: normal respiratory effort; no respiratory distress and no labored breathing Cardiovascular: Rate/Rhythm: + abnormal rhythm Extremities: no edema Gastrointestinal (Abdomen): Inspection/Auscultation: + abdomen distended and + hypoactive bowel sounds Percussion/Palpation: abdomen soft and + tympanic to percussion; abdomen nontender and no guarding Musculoskeletal: Extremities: no cyanosis and no clubbing Skin: + jaundice Neurologic: PERRL, EOMI, accommodation nl, no face palsy, no dysarthria Results & Data ([facility]) Vital Signs (Past 12 Hours) Vital Signs Temp Pulse Pulse Resp BP BP Pulse Ox 12/01/19 07:22 36.3 C L 67 18 124/72 97 12/01/19 07:14 55 L 12/01/19 04:00 36.2 C L 70 22 120/68 93 11/30/19 23:45 36.4 C L 50 L 18 93/59 L 91 11/30/19 22:21 54 L Laboratory Results - last 24 hr 12/01/19 12/01/19 12/01/19 05:46 05:46 05:56 WBC 9.25 RBC 4.09 L Hgb 13.6 L Hct 38.3 L MCV 93.6 MCH 33.3 MCHC 35.5 RDW Std Deviation 69.9 H RDW Coeff of Lisa 21.4 H Plt Count 133 MPV 12.1 H PT 18.9 H INR 1.9 H Sodium 133 L Potassium 5.1 Chloride 101 Carbon Dioxide 23 Anion Gap 9.0 BUN 44 H Creatinine 1.66 H Est Cr Clr Drug Dosing 45.2 Est GFR ( Amer) 49.0 Est GFR (Non-Af Amer) 42.3 BUN/Creatinine Ratio 26.3 H Glucose 90 Calcium 8.3 L Phosphorus 4.6 Magnesium 2.8 H Total Bilirubin 20.1 H AST 119 H ALT 135 H Alkaline Phosphatase 193 H Total Protein 5.7 L Albumin 2.3 L Globulin 3.4 Albumin/Globulin Ratio 0.7 L
[2019-12-01] MEDS: RIFAXIMIN 550 MG TABLET PO SCH (09:45)
[2019-12-01] MEDS: SPIRONOLACTONE 25 MG TAB PO SCH (09:46)
[2019-12-01] MEDS: predniSONE 20 MG TAB PO SCH (09:46)
[2019-12-01] MEDS: METOPROLOL TARTRATE 50 MG TAB PO SCH (09:46)
[2019-12-01] MEDS: ENOXAPARIN INJ 40 MG/0.4 ML SYR SQ SCH (09:50)
[2019-12-01] MEDS: UMECLIDINIUM BROMIDE 62.5MCG/BLISTER 7 PUFFS/INHALER INH SCH (09:50)
[2019-12-01] MEDS: CALCIUM 600MG + VIT D 400 IU TAB PO SCH (09:50)
[2019-12-01] MEDS: SODIUM CHLORIDE 0.9% 1000ML 1,000 ML IV SCH (10:21)
[2019-12-01] MEDS: LORazepam 0.5 MG TAB SL PRN (15:43)
--- NOTE | 2019-12-01 16:05 | Palliative Care Progress Note ---
Date of Service December 01, 2019 Assessment & Plan (1) Goals of care, counseling/discussion: Patient seen and examined, patient's , Yuliya Anderson at bedside. Patient appears more jaundiced, states he does remember my visit yesterday, but does appear slightly more confused. Patient received one PRN tramadol, one PRN IV morphine as well as one PRN p.o. Dilaudid in the past 24 hours for discomfort, he also received one PRN Ativan-none recently that would explain his increased confusion. Reviewed laboratory findings with patient and at bedside. reports patient was started on high-dose prednisone with a plan to taper- instructed that this taper could continue once he returns home -this was started for possible autoimmune hepatitis. - Patient's has opted to have patient return home with hospice care. -Elevated INR-patient's INR was 1.0 on 05/20, was 1.2 on 10/27, on admission it was 1.5. INR this a.m. was 1.9-reviewed implications with regarding spontaneous bleeding and discussed things to have at home in preparation. - Patient's creatinine has increased from 1.36-1.66-doubt this is contributing to his confusion very much. -Hyperbilirubinemia-patient's bilirubin was 0.7 in October, on admission sven to 17.8, bilirubin today was 20.1. Discussed with patient's placing patient in a dustin window to help conjugate the bilirubin so it can be easily excreted through the urine-warned regarding change in urine color. Also discussed how this is most likely contributing the most to his current confusion. -Low albumin-patient's albumin was 3.1 on 10/27 of this year, was 2.8 on admission, dropped to 2.3 on labs drawn this a.m. Discussed contribution of the low albumin to patient's anasarca. -Pain-patient denies pain on exam, pain apparently is due to abdominal distention exacerbated by constipation-discussed using MiraLAX at home and t itrating to effect-patient does drink lots of water at home per his . Discussed using Roxanol for pain as this can continue even when patient is no longer able to take p.o. -Metastatic bladder CA-diagnosed in March of this year-biopsy showed high- grade, invasive, papillary urothelial carcinoma with invasion into the muscularis propria. Patient also found to have multiple lung nodules-largest is 2.6 cm. Liver appears cirrhotic on CT-multiple lesions seen, low suspicion for mets. -Bilateral nephrostomy tubes-discussed with that as patient becomes more confused he may pull them out-discussed options-patient's would not want them replaced, would just focus on comfort. -Patient has 2 teenaged children, a 15-year-old son who lives at home and an 18-year-old daughter who is attending college remotely and lives in [place] -discussed with multiple ways for the children to assist with father's care, if [id number] communication is difficult, suggested they can write down what they would like to tell her father and she could read it to them. -Patient is for discharge home today with hospice care. 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 Patient appears more jaundiced, states he does remember my visit yesterday, but does appear slightly more confused. Patient received one PRN tramadol, one PRN IV morphine as well as one PRN p.o. Dilaudid in the past 24 hours for discomfort, he also received one PRN Ativan-none recently that would explain his increased confusion. Reviewed laboratory findings with patient and at bedside. reports patient was started on high-dose prednisone with a plan to taper- instructed that this taper could continue once he returns home -this was started for possible autoimmune hepatitis. - Patient's has opted to have patient return home with hospice care. -Elevated INR-patient's INR was 1.0 on 05/20, was 1.2 on 10/27, on admission it was 1.5. INR this a.m. was 1.9-reviewed implications with regarding spontaneous bleeding and discussed things to have at home in preparation. - Patient's creatinine has increased from 1.36-1.66-doubt this is contributing to his confusion very much. -Hyperbilirubinemia-patient's bilirubin was 0.7 in October, on admission sven to 17.8, bilirubin today was 20.1. Discussed with patient's placing patient in a dustin window to help conjugate the bilirubin so it can be easily excreted through the urine-warned regarding change in urine color. Also discussed how this is most likely contributing the most to his current confusion. -Low albumin-patient's albumin was 3.1 on 10/27 of this year, was 2.8 on admission, dropped to 2.3 on labs drawn this a.m. Discussed contribution of the low albumin to patient's anasarca. -Pain-patient denies pain on exam, pain apparently is due to abdominal distention exacerbated by constipation-discussed using MiraLAX at home and titrating to effect-patient does drink lots of water at home per his . Discussed using Roxanol for pain as this can continue even when patient is no longer able to take p.o. -Metastatic bladder CA-diagnosed in March of this year-biopsy showed high- grade, invasive, papillary urothelial carcinoma with invasion into the muscularis propria. Patient also found to have multiple lung nodules-largest is 2.6 cm. Liver appears cirrhotic on CT-multiple lesions seen, low suspicion for mets. -Bilateral nephrostomy tubes-discussed with that as patient becomes more confused he may pull them out-discussed options-patient's would not want them replaced, would just focus on comfort. -Patient has 2 teenaged children, a 15-year-old son who lives at home and an 18-year-old daughter who is attending college remotely and lives in [place] -discussed with multiple ways for the children to assist with father's care, if [id number]-[id number] communication is difficult, suggested they can write down what they would like to tell her father and she could read it to them. Review of Systems Review of Systems: Unobtainable due to cognitive status Physical Exam Physical Exam: PE: Patient awake, alert, appears comfortable HEENT: Increased scleral icterus Respirations: Nonlabored, clear breath sounds CV: Regular rate, 3+ pitting edema Abdomen: Distended, soft, nontender to palpation Extremities: 3+ pitting edema Skin: Increased jaundice Neuro: Confused Results & Data ([facility]) Vital Signs (Past 12 Hours) Vital Signs Temp Pulse Pulse Resp BP BP Pulse Ox 12/01/19 15:25 97.9 F 66 18 120/68 113/76 91 12/01/19 11:24 97.9 F 66 18 113/76 91 12/01/19 07:22 97.3 F L 67 18 124/72 97 12/01/19 07:14 55 L PG Care Time/CCT Total # of Minutes Spent Total Time Spent with Patient: Total time spent 65 minutes with greater than 50% of the time at bedside discussing patient's current medications, goals of care, as well as discussing anticipated end-of-life issues at length. Also counseled regarding helping their children cope with their father's upcoming . Prolonged Care Time Prolonged Care Time: Yes Total Prolonged Care Time: 30 Coding Level of Care Code 75389 Subseq Hosp Care Lvl 3 Diagnoses Goals of care, counseling/discussion Z71.89 Thrombocytopenia D69.6 Malignant neoplasm of bladder metastatic to lung C67.9; C78.00 Depression F32.9 Additional Codes Prolonged Care Time - Prolonged Care Time: Yes ([id number]) Time Spent (min) 65 Critical Care Time Prolonged Care Time Prolonged Care Time: Yes Total Prolonged Care Time: 30 65
--- NOTE | 2019-12-01 18:00 | Discharge Summary ---
Date of Service December 01, 2019 Admission HPI Per Admitting Provider Pancho Vora is a 64 year old man with a past medical history significant for metastatic bladder cancer diagnosed in March. He has multiple metastasis including his lungs and his liver he also has cirrhosis of the liver and ascites. He follows with oncology at , is status post one dose of keytruda and bilateral nephrostomy tube placement in october. He was admitted last week for abdominal pain and was found to have an ileus, this resolved with scheduled miralax and attempting to limit opiate pain medication. In the meantime patient has been having some trouble with abdominal pain and worsening abdominal distension and lower limb swelling. He was seen by gastroenterology who recommended a short course of steroids and her oncologist increased this to a larger taper and he was started on 70 mg yesterday morning. He was supposed to be getting his second round of keytruda on Saturday but oncology has decided to push that back now until his liver symptoms are under better controls. When he woke up this morning patient was very altered. Does not remember anything but is present and tells me that he stripped all his clothing off and started to mess with his bandages and nephrostomy tubes. He continued to be altered all day until his brought him in this evening. Around the time he presented to the emergency department patient's confusion started to jack. His vital signs on presentation were within normal limits, his labwork was significant for hemoglobin of 12.8, INR of 1.5, Hyponatremia of 133, creatinine of 1.48, t bili of 17.8, lactate of 5.1, AST and ALT both elevated in the 140's, Alk phos of 269, and an elevated troponin of .072. procalcitonin of 1.12. CT head negative, CT abdomen and pelvis showing minimum of 3 masses in the right lower lobe of the lung, large amount of ascites, nodular margins of the liver suspicious of multiple masses, mucosal thickening of the small bowel, and bladder wall htickening, air in the bladder and degenerative disease of the lumbar spine. Case was discussed with gastroenterology who initially recommended transfer to tertiary care center, [facility] refused transfer because they feel this is all secondary to liver metastasis and they have nothing they can offer at this point. Patient's confusion is now much better, but he is having severe abdominal pain not relieved by fentanyl in ED and complaining of nausea without vomiting. 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 wishes to be a full code at this time. Principal Diagnosis Liver failure - Likely due to hepatic metastatic disease Discharge Exam Constitutional WD/WN, vitals as above Eyes EOM intact bilaterally; no conjunctival abnormality ENMT external ear and nose normal, oropharynx normal Neck trachea midline, no thyromegaly normal visual inspection Respiratory normal respiratory effort, lungs clear to auscultation no respiratory distress Cardiovascular RRR, no murmur, no edema Gastrointestinal (Abdomen) Inspection/Auscultation: abdomen normal to inspection; abdomen not distended Musculoskeletal no cyanosis or clubbing, extremities motor strength 5/5 Skin no rashes, warm and dry Neurologic moves all extremities and awake Psychiatric Orientation: alert, oriented to person and cooperative Thought Process: + tangential thought process Discharge Data Allergies Allergy/AdvReac Type Severity Reaction Status Date / Time cat dander Allergy Mild watery eyes Unverified 11/19/19 11:07 No Known Drug Allergies Allergy Verified 11/19/19 11:07 Consultations 11/29/19 02:49 Consult Gastroenterology Routine Consult Oncology Routine 11/29/19 09:39 Consult Case Management - Discharge Planning Routine Consult Palliative Care Routine Ordered Studies 11/28/19 18:10 CT head/brain wo con Stat 11/28/19 20:17 CT abd pelvis wo con Urgent 11/29/19 02:49 MR MRCP Urgent Hospital Course (1) Hyperbilirubinemia: Unclear cause. MRCP on 11/28 did not show gross obstruction. Concern for neoplastic infiltrate vs. reaction to pembrolizumab. - Continue prednisone taper (tomorrow 60 mg). - Monitor -> No change today. Discharge home on hospice. (2) Confusion: Presumed secondary to cirrhosis and liver dysfunction from liver mets. Infectious encephalopathy also possible. - Improved today, though still clearly has short-term memory issues. Overnight he also was more confused and pulled his NG tube out. 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 CT a/p and MRCP both do not show definitive evidence; however, they are both show possible metastatic disease. (4) Malignant neoplasm of bladder metastatic to lung: Follows with [facility] oncology, Dr. Mihai Crawford. Had received a single dose of Keytruda, but per report, this will now be held due to liver issues. I spoke with Dr. Crawford and Dr. Bustamante on 11/29. When I described Mr. Vora's condition to the best of my ability, both reported he is not likely a candidate for any further chemotherapy or immunotherapy. Both felt that palliative care and hospice is appropriate in this situation. - Plan for hospice tomorrow (5) H/O nephrostomy: Inserted due to his bladder cancer. - No inpatient needs. (6) COPD with emphysema: Breathing comfortably at this time. - DuoNebs PRN (7) Depression: - Continue citalopram and clonazepam (8) DVT prophylaxis: Lovenox 40 mg SQ daily Total Time Total Time Spent Total Time Spent (In Minutes): 35 Discharge Plan Discharge Items Patient Disposition: Hospice - Home Reason For Visit: ALTERED MENTAL STATUS IN SETTING OF METASTATIC Discharge Diagnosis: Liver failure from bladder cancer or possibly Keytruda Condition on Discharge: Fair Activity: Resume your previous activity Non-emergency contact: Primary Care Provider Call non-emergency contact if: your symptoms worsen and your pain is not controlled Follow-up/Referrals: Reinier Flores [Primary Care Provider] - Diet: Full liquid Addtl Attending Provider Instructions: Mr. Vora, You were admitted to the hospital for confusion. We found that your bilirubin is very high. We did multiple tests that indicated there is continued & advancing cancer in the liver. We feel this is likely causing the confusion. It is possible that dehydration or a mild urinary tract infection caused the higher level of confusion seen before coming to the hospital. We spoke with your oncologist at [facility], Dr. Crawford, and unfortunately, there do not seem to be further treatment options available for your cancer. Our goal is to keep you comfortable. You can finish the steroid taper that Dr. Crawford started. Please take 50 mg tomorrow and , then 40 mg for two days, then 30 mg, etc. until it is gone. We will also continue your diuretic medications to help you avoid fluid build-up in the legs and stomach. Pending Studies at Discharge: No Stand-Alone Forms: My [facility] Medications and DC Order Prescriptions: New Xifaxan 550 mg Tablet 550 mg PO BID Qty: 30 RF: 0 lorazepam 0.5 mg Tablet 0.5 mg sublingual TID PRN (Reason: anxiety) Qty: 20 RF: 0 morphine 10 mg/5 mL solution 5 mg PO Q6H PRN (Reason: Pain or shortness of breath) Qty: 100 RF: 0 Continued Spiriva Respimat 2.5 mcg/actuation mist 2 puffs INH BID Qty: 4 RF: 3 albuterol sulfate 90 mcg/actuation Hfa Aerosol Inhaler 2 puff INHALATION 6XD PRN (Reason: ALLERGIES INDUCED ASTHMA) RF: 0 levocetirizine [24HR Allergy Relief] 5 mg tablet 5 mg PO DAILY PRN (Reason: allergy symptoms) RF: 0 baclofen 10 mg Tablet 10 mg PO TID PRN (Reason: muscle spasm) 30 Days Qty: 90 RF: 1 polyethylene glycol 3350 [Miralax] 17 gram Powder In Packet 17 g PO DAILY PRN (Reason: Constipation) 30 Days RF: 0 tramadol 50 mg Tablet 50 mg PO Q6H PRN (Reason: Pain) RF: 0 spironolactone 50 mg tablet 50 mg PO DAILY RF: 0 ondansetron HCl 4 mg tablet 4 mg PO BID PRN (Reason: Nausea) RF: 0 prednisone 10 mg tablet 0 mg PO .DAILY/UD RF: 0 Discontinued clonazepam [Klonopin] 0.5 mg tablet 0.5 mg PO QPM RF: 0 calcium carbonate [Calcium 600] 600 mg calcium (1,500 mg) Tablet 600 mg PO QAM RF: 0 metoprolol tartrate 50 mg tablet 50 mg PO BID RF: 0 Discharge Orders: Discharge Order (Routine); Ordered 12/01/19 Ordered By: Gus Cho Admission Data Admit Date/Time: 11/29/19 00:32 Attending Provider: Gus Cho Admit Provider: El Devlin Primary Care Provider: Reinier Flores Other Providers: Clifford Guido ; Jamel Perales V. ; Kathryn Yoa ; [facility] ; [facility] Other Interventions: Discharge Summary Assessment (RN) Last Done: 12/01/19 15:25 Coding Level of Care Code D/C Day Management >30 mins Diagnoses Hyperbilirubinemia E80.6 Confusion R41.0 Liver metastases C78.7 Malignant neoplasm of bladder metastatic to lung C67.9; C78.00 H/O nephrostomy COPD with emphysema J43.9 Depression F32.9 DVT prophylaxis Z29.9
== END 2019-12-01 16:08 | disposition hospice, home (50) | DRG 436 ==
LOC: ED 16:54 → SUATTDRO 11-29 00:32 → 2N 11-29 00:32